=== PATIENT | female | born 1950 | race Caucasian/White ===

== ENCOUNTER 2017-10-04 08:08 | Emergency (ER) | payer OTHER, SELFPAY ==
[2017-10-04 08:19] VITALS: BP 180/91; PULSE 75; RESP 18; TEMP 37.1; O2SAT 97; BMI 31.1
[2017-10-04 08:59] VITALS: BP 179/99; PULSE 74; RESP 21; O2SAT 98
[2017-10-04 08:59] LABS: Add Manual Diff / Slide Review NO; Basophils Percent Auto 0.9 % (0-2); Eosinophils Percent Auto 0.2 % (2-4); Hematocrit 37.9 % (36-46); Hemoglobin 13.5 g/dL (12.0-16.0); Lymphocytes Percent Auto 12.4 % (25-40); Mean Corpuscular HGB Conc 35.5 % (30-36); Mean Corpuscular Volume 98.6 fL (80-100); Monocytes Percent Auto 6.8 % (3-14); Neutrophils Absolute Auto 4200 /uL (3000-5900); Neutrophils Percent Auto 79.7 % (50-75); Platelet Count 182 X10^3/uL (150-400); Red Blood Cell Count 3.85 X10^6/uL (4.0-5.2); Red Cell Distribution Width 13.3 % (11.6-14.8); White Blood Cell Count 5.3 X10^3/uL (4.5-11.0)
[2017-10-04 09:04] LABS: Alanine Aminotransferase 68 IU/L (9-52); Albumin Globulin Ratio 1.3 (1.0-2.8); Alkaline Phosphatase 157 U/L (38-126); Aspartate Aminotransferase 180 IU/L (14-36); Bilirubin Total 2.1 mg/dL (0.2-1.3); Calcium 9.1 mg/dL (8.4-10.2); Estimated Glomerular Filt Rate 55.5 mL/min (>60); Glucose 122 mg/dL (80-110); HEMOLYSIS < 15 (0-50); Lipase 91 U/L (23-300); Sodium 140 mmol/L (137-145)
[2017-10-04] MEDS: HYDROMORPHONE 0.5 MG INJ IV ×2 (09:09→09:28)
[2017-10-04] MEDS: SODIUM CHLORIDE 0.9% 1,000 ML 150 ML IV (09:10)
--- NOTE | 2017-10-04 09:16 | ED.ABDPAIN ---
HPI - Abdominal Pain General Chief Complaint: Abdominal Pain Stated Complaint: states gallbladder attack Time Seen by Provider: 10/04/17 08:09 Source: patient and family Mode of arrival: ambulatory Limitations: no limitations History of Present Illness HPI narrative: 67F hx HTN, breast cancer resolved with surgery and chemo last hear has upper abdominal pain since last night. During the night patient reports getting up and havnig to vomit multiple times, dry heaving, and gastric contents. No blood. No diarrhea. Denies fever, chills. No abdominal surgeries aside from jen lamar PCP Dr. Salcido Related Data Home Medications Medication Instructions Recorded Confirmed cetirizine 10 mg PO PRN PRN #0 tab 02/06/16 triamcinolone acetonide 1 ld TOPICAL PRN #0 02/06/16 ascorbic acid (vitamin C) 500 mg PO QDAY #0 tab 02/28/16 cholecalciferol (vitamin D3) 6,000 PO QDAY #0 03/08/16 [Vitamin D3] vit-iron fum-folic ac 1 cap PO QDAY #0 07/09/17 [Mynatal] Previous Rx's Medication Instructions Recorded [HANDICAPPED PARKING] 1 ea X1 #1 05/30/16 CHLORZOXAZONE (PARAFON FORTE DSC) 500 mg PO TID #60 tab 08/28/16 ondansetron [Zofran ODT] 4 mg SUBLINGUAL Q6HP PRN #60 odt 10/04/16 fluoxetine 40 mg PO QDAY #90 tab 11/07/16 zolpidem 5 mg PO HS PRN #20 tab 11/11/16 lorazepam 0.5 mg PO Q6HP PRN #40 tab 11/27/16 omeprazole 20 mg PO QDAY #30 cap 12/17/16 amitriptyline 50 mg PO HS #30 tab 04/01/17 metoprolol succinate 100 mg PO QDAY #90 ter 04/01/17 tramadol 50 mg PO Q6HP PRN #30 tab 04/01/17 letrozole [Femara] 2.5 mg PO QDAY #30 tab 08/05/17 ondansetron HCl [Zofran] 4 mg PO Q6H PRN #10 tab 10/04/17 oxycodone-acetaminophen [Percocet] 1 tab PO Q4-6H PRN #10 tab 10/04/17 Allergies Allergy/AdvReac Type Severity Reaction Status Date / Time No Known Drug Allergies Allergy Verified 10/04/17 08:19 Review of Systems Review of Systems ROS: Constitutional - No fever, chills Eyes - No visual changes ENT - No hearing loss Cardiovascular - No chest pain, No edema, no palpitations Respiratory - No cough, no shortness of breath GI - has abdominal pain,has nausea,has vomiting - No dysuria, no hematuria MSK- No back pain Skin - No rash Neuro - No weakness, no change in level of consciousness Endocrine - No polyuria Hematologic/lymphatic - No easy bruising, no petechiae PFSH Surgical History History of knee replacement Status post partial mastectomy Family History Father Mental health problem Mother Hypertension High cholesterol Stroke Exam Narrative Exam Narrative: Exam: Constitutional - Well appearing, well nourished, mild distress EYES - PERRL, EOMI ENT - Moist oral mucosa Cardiovasuclar - Normal rate, rhythm, no murmurs, gallops, rubs Respiratory - Lungs CTA bilaterally, no increased respiratory effort, no accessory muscle use GI - Soft, significant RUQ and epigsastric tenderness, non distended, no rebound MSK - No deformity, No CVA tenderness, No peripheral edema Skin - No rash, no petechiae Neuro - A&Ox3, moves all extremities. No focal deficits Initial Vital Signs Initial Vital Signs: Vital Signs Temperature 98.7 F 10/04/17 08:19 Pulse Rate 75 10/04/17 08:19 Respiratory Rate 18 10/04/17 08:19 Blood Pressure 180/91 H 10/04/17 08:19 Pulse Oximetry 97 10/04/17 08:19 Course Orders Ordered: ED Orders 10/04/17 08:15 Urine Microscopic Stat 10/04/17 08:40 Complete Blood Count AUTO DIFF Stat Comprehensive Metabolic Panel Stat Lipase Stat 10/04/17 09:25 US abdomen complete Stat 10/04/17 11:03 MR abdomen wo con Stat Sodium Chloride (Normal Saline 0.9%) 1,000 mls @ 150 mls/hr IV CONT FREDERICK Last Infusion: 10/04/17 10:27 Dose: 0 mls/hr Admin: 10/04/17 09:10 Dose: 150 mls/hr Discontinued Medications Hydromorphone HCl (Dilaudid) 0.5 mg IV NOW ONE Stop: 10/04/17 09:05 Last Admin: 10/04/17 09:09 Dose: 0.5 mg Hydromorphone HCl (Dilaudid) 0.5 mg IV NOW ONE Stop: 10/04/17 09:25 Last Admin: 10/04/17 09:28 Dose: 0.5 mg Metoclopramide HCl (Reglan) 10 mg IV NOW ONE Stop: 10/04/17 09:25 Last Admin: 10/04/17 09:28 Dose: 10 mg Vital Signs - 8 hr 10/04/17 08:19 10/04/17 08:59 10/04/17 11:10 Temperature 98.7 F Pulse Rate 75 74 79 Respiratory Rate 18 21 18 Blood Pressure 180/91 H Blood Pressure [Left Arm] 179/99 H 126/71 H Pulse Oximetry 97 98 97 10/04/17 12:44 10/04/17 13:34 Temperature Pulse Rate 73 70 Respiratory Rate 20 18 Blood Pressure Blood Pressure [Left Arm] 162/82 H 129/75 H Pulse Oximetry 97 95 MDM - Abdominal Pain Lab Data Result diagrams: 10/04/17 08:40 10/04/17 08:40 Lab Results 10/04/17 10/04/17 10/04/17 Range/Units 08:15 08:40 08:40 WBC 5.3 (4.5-11.0) X10^3/uL RBC 3.85 L (4.0-5.2) X10^6/uL Hgb 13.5 (12.0-16.0) g/dL Hct 37.9 (36-46) % MCV 98.6 (80-100) fL MCH 35.0 H (26-34) PG MCHC 35.5 (30-36) % RDW 13.3 (11.6-14.8) % Plt Count 182 (150-400) X10^3/uL Neut % (Auto) 79.7 H (50-75) % Lymph % (Auto) 12.4 L (25-40) % Duchesne % (Auto) 6.8 (3-14) % Eos % (Auto) 0.2 L (2-4) % Baso % (Auto) 0.9 (0-2) % Neut # (Auto) 4200 (5627-7478) /uL Sodium 140 (137-145) mmol/L Potassium 4.0 (3.4-5.1) mmol/L Chloride 101.0 (98-107) mmol/L Carbon Dioxide 25.0 (22-32) mmol/L BUN 17.0 (7-17) mg/dL Creatinine 1.00 (0.52-1.04) mg/dL Estimated GFR 55.5 L (>60) mL/min BUN/Creatinine Ratio 17.0 (6-22) Glucose 122 H (80-110) mg/dL Calcium 9.1 (8.4-10.2) mg/dL Total Bilirubin 2.1 H (0.2-1.3) mg/dL AST 180 H (14-36) IU/L ALT 68 H (9-52) IU/L Alkaline Phosphatase 157 H (38-126) U/L Total Protein 7.0 (6.3-8.2) g/dL Albumin 4.0 (3.5-5.0) g/dL Globulin 3.0 (1.7-4.1) g/dL Albumin/Globulin Ratio 1.3 (1.0-2.8) Lipase 91 (23-300) U/L Urine RBC 0-1/hpf (0-5/HPF) Urine WBC 1-5/hpf (0-5/HPF) Ur Squamous Epith Cells 5-10 /hpf H Urine Bacteria Few (2-10) H (None) Ur Culture Indicated? Cult not indicated Micro UA Comment Few clue cells Imaging Data US - abdomen: Radiologist's impression: Patient: Santa Sears [facility]#: [id number] : [id number]:[id number] Age/Sex: 67 / FDate of Service: 10/04/17 Loc: ED Accession Number: [id number] Procedure: US abdomen complete Ordering Provider: Jones Ledesma M.D. Patient: Santa Sears [facility]#: [id number] : [id number]:[id number] Age/Sex: 67 / FDate of Service: 10/04/17 Loc: ED Accession Number: [id number] Procedure: MR abdomen wo con Ordering Provider: Jones Ledesma M.D. PROCEDURE: MR ABDOMEN WO CON INDICATIONS: Biliary sludge, dilated CBD; US abdomen TECHNIQUE: Coronal HASTE through the abdomen, axial 2-D FLASH in- and [id number], and breath-hold T2 FSE with fat saturation through the biliary system and pancreas. Oblique coronal and axial thin-slice HASTE, radial thick-slab HASTE centered on the extrahepatic bile ducts. COMPARISON: [facility], , US ABDOMEN COMPLETE, 10/04/2017, 10:08. FINDINGS: Image quality: There is motion artifact slightly limiting evaluation. Pancreas and biliary system: The gallbladder distended with mild gallbladder wall thickening. There are small dependent filling defects in the gallbladder neck consistent with small gallstones or biliary sludge. There is mild biliary ductal dilatation, with the common bile duct measuring up to approximately 7-8 mm with tapering distally into the ampulla of Vater. No discrete filling defects within the common duct to suggest choledocholithiasis. The pancreatic duct is normal in caliber. No peripancreatic edema or fluid collections. Other solid organs: Liver is normal in size. Spleen is normal in size. No adrenal nodules. Kidneys demonstrate no hydronephrosis. There is a right renal cortical cyst. Mild nonspecific perinephric fluid stranding is demonstrated bilaterally. Nodes and vessels: No retroperitoneal or mesenteric adenopathy by size criteria. Aorta and inferior vena cava are normal in size. Bowel and peritoneum: Visualized bowel loops are normal in caliber. No free fluid. Lung bases: No basal pleural effusions. Heart size is enlarged. Bones and soft tissues: No ventral hernias. Bone marrow is of normal overall signal. IMPRESSION: 1. Distention of the gallbladder with mild wall thickening and small gallstones or biliary sludge in the gallbladder neck. The findings are suspicious for developing cholecystitis. 2. Mild biliary ductal dilatation without common duct stones identified on the current study. The findings may represent sequelae of a recently passed stone but the differential includes ampullary stenosis or a nonvisualized mass lesion. Dictated by: Patrick Patterson M.D. on 10/04/2017 at 13:08 Approved by: Patrick Patterson M.D. on 10/04/2017 at 13:17 PROCEDURE: US ABDOMEN COMPLETE INDICATIONS: RIGHT UPPER QUADRANT PAIN TECHNIQUE: Real-time scanning was performed of the abdominal and retroperitoneal organs, with image documentation. COMPARISON: None. FINDINGS: Liver: Liver is normal in size and increased in echogenicity. Gallbladder: The gallbladder is distended without gallbladder wall thickening. There are hypo-and isoechoic filling defects in the gallbladder neck without internal vascularity on Doppler interrogation. No posterior acoustic shadowing. No pericholecystic fluid. Patient was tender on examination. Biliary ducts: Intrahepatic bile ducts are non-dilated. Extrahepatic bile duct caliber measures up to 8 mm. Normal is 6-7 mm or less in diameter, or 10 mm or less post-cholecystectomy. Pancreas: Visualized portions of the pancreas are sonographically normal. Spleen: Spleen is normal in size and homogeneous in echotexture. Kidneys: Right kidney measures 9.7 cm long; left kidney measures 10.1 cm long. No hydronephrosis. Aorta: Not well evaluated due to bowel gas. Iliacs: Proximal common iliac arteries are not well seen due to bowel gas. IVC: Intrahepatic inferior vena cava is patent. Miscellaneous: No free abdominal fluid. IMPRESSION: 1. Distention of the gallbladder with filling defects in the gallbladder neck compatible with biliary sludge, or less likely a soft tissue mass. Further evaluation may be obtained with an MRCP with contrast if clinically indicated. 2. Mild biliary ductal dilatation. A distal obstructing stone or other lesion is suspected. Recommend correlation with laboratory values. Further evaluation may also be obtained with MRCP. 3. Increased hepatic echogenicity compatible with steatosis. Dictated by: Patrick Patterson M.D. on 10/04/2017 at 10:30 Approved by: Patrick Patterson M.D. on 10/04/2017 at 10:34 ECG Data Interpretation: Sinus Rhthym; HR [address]/Tw changes Normal LA interval No ectopy MDM Narrative Medical decision making narrative: Patient given 0.5mg dilaudid IV and NS bolus. RUQ US likely for possible CBD obstruction, Radiology recommended MRCP f/u MRCP obtained; suspicious for developing cholecystitis. Consulted with order desk caller surgeon Dr. Latham; No indication for cholecystectomy or admission at this time. Patient no longer in pain. stable for discharge Discharge Plan Departure Patient Disposition: Home, Self-Care Clinical Impression: Biliary colic Instructions: DI for Gallbladder or Biliary Tubes, DI for Biliary Colic Activity Restrictions/Additional Instructions: Non fatty, high fiber diet for the next week. Please follow up with your primary care provider. Prescriptions: New ondansetron HCl [Zofran] 4 mg tablet 4 mg PO Q6H PRN (Reason: nausea) Qty: 10 RF: 0 oxycodone-acetaminophen [Percocet] 5-325 mg tablet 1 tab PO Q4-6H PRN (Reason: pain) Qty: 10 RF: 0 No Action triamcinolone acetonide 0.5 % cream 1 ld Topical PRN Qty: 0 RF: 0 cetirizine 10 MG tablet 10 mg PO PRN PRNQty: 0 RF: 0 ascorbic acid (vitamin C) 500 MG tablet 500 mg PO QDAY Qty: 0 RF: 0 cholecalciferol (vitamin D3) [Vitamin D3] 1,000 UNIT tablet 6,000 PO QDAY Qty: 0 RF: 0 [HANDICAPPED PARKING] 1 ea X1 Qty: 1 RF: 0 CHLORZOXAZONE (PARAFON FORTE DSC) 500 mg PO TID Qty: 60 RF: 2 ondansetron [Zofran ODT] 4 MG tablet,disintegrating 4 mg Sublingual Q6HP PRNQty: 60 RF: 1 fluoxetine 40 MG capsule 40 mg PO QDAY Qty: 90 RF: 3 zolpidem 5 MG tablet 5 mg PO HS PRNQty: 20 RF: 0 lorazepam 0.5 MG tablet 0.5 mg PO Q6HP PRNQty: 40 RF: 1 omeprazole 20 MG capsule,delayed release(DR/EC) 20 mg PO QDAY Qty: 30 RF: 6 tramadol 50 MG tablet 50 mg PO Q6HP PRNQty: 30 RF: 2 metoprolol succinate 100 MG tablet extended release 24 hr 100 mg PO QDAY Qty: 90 RF: 3 amitriptyline 50 MG tablet 50 mg PO HS Qty: 30 RF: 5 vit-iron fum-folic ac [Mynatal] 1 EACH capsule 1 cap PO QDAY Qty: 0 RF: 0 letrozole [Femara] 2.5 MG tablet 2.5 mg PO QDAY Qty: 30 RF: 3 Referrals: Michael Salcido MD [Primary Care Provider] -
--- NOTE | 2017-10-04 09:25 | DI.US.S_ITS ---
PROCEDURE: US ABDOMEN COMPLETE INDICATIONS: RIGHT UPPER QUADRANT PAIN TECHNIQUE: Real-time scanning was performed of the abdominal and retroperitoneal organs, with image documentation. COMPARISON: None. FINDINGS: Liver: Liver is normal in size and increased in echogenicity. Gallbladder: The gallbladder is distended without gallbladder wall thickening. There are hypo-and isoechoic filling defects in the gallbladder neck without internal vascularity on Doppler interrogation. No posterior acoustic shadowing. No pericholecystic fluid. Patient was tender on examination. Biliary ducts: Intrahepatic bile ducts are non-dilated. Extrahepatic bile duct caliber measures up to 8 mm. Normal is 6-7 mm or less in diameter, or 10 mm or less post-cholecystectomy. Pancreas: Visualized portions of the pancreas are sonographically normal. Spleen: Spleen is normal in size and homogeneous in echotexture. Kidneys: Right kidney measures 9.7 cm long; left kidney measures 10.1 cm long. No hydronephrosis. Aorta: Not well evaluated due to bowel gas. Iliacs: Proximal common iliac arteries are not well seen due to bowel gas. IVC: Intrahepatic inferior vena cava is patent. Miscellaneous: No free abdominal fluid. IMPRESSION: 1. Distention of the gallbladder with filling defects in the gallbladder neck compatible with biliary sludge, or less likely a soft tissue mass. Further evaluation may be obtained with an MRCP with contrast if clinically indicated. 2. Mild biliary ductal dilatation. A distal obstructing stone or other lesion is suspected. Recommend correlation with laboratory values. Further evaluation may also be obtained with MRCP. 3. Increased hepatic echogenicity compatible with steatosis. Dictated by: Patrick Patterson M.D. on 10/04/2017 at 10:30 Approved by: Patrick Patterson M.D. on 10/04/2017 at 10:34
[2017-10-04] MEDS: METOCLOPRAMIDE 10 MG/2 ML INJ IV (09:28)
[2017-10-04 09:52] LABS: Bacteria Urine Few (2-10); RBC Urine 0-1/HPF (0-5/HPF); Squamous Epithelial Cell Urine 5-10 /HPF; Urine Comments FEW CLUE CELLS; WBC Urine 1-5/HPF (0-5/HPF)
[2017-10-04 09:53] LABS: Culture Indicated Urine Cult Not Indicated
--- NOTE | 2017-10-04 11:03 | DI.MRI.S_ITS ---
PROCEDURE: MR ABDOMEN WO CON INDICATIONS: Biliary sludge, dilated CBD; US abdomen TECHNIQUE: Coronal HASTE through the abdomen, axial 2-D FLASH in- and [id number], and breath-hold T2 FSE with fat saturation through the biliary system and pancreas. Oblique coronal and axial thin-slice HASTE, radial thick-slab HASTE centered on the extrahepatic bile ducts. COMPARISON: [facility], US, US ABDOMEN COMPLETE, 10/04/2017, 10:08. FINDINGS: Image quality: There is motion artifact slightly limiting evaluation. Pancreas and biliary system: The gallbladder distended with mild gallbladder wall thickening. There are small dependent filling defects in the gallbladder neck consistent with small gallstones or biliary sludge. There is mild biliary ductal dilatation, with the common bile duct measuring up to approximately 7-8 mm with tapering distally into the ampulla of Vater. No discrete filling defects within the common duct to suggest choledocholithiasis. The pancreatic duct is normal in caliber. No peripancreatic edema or fluid collections. Other solid organs: Liver is normal in size. Spleen is normal in size. No adrenal nodules. Kidneys demonstrate no hydronephrosis. There is a right renal cortical cyst. Mild nonspecific perinephric fluid stranding is demonstrated bilaterally. Nodes and vessels: No retroperitoneal or mesenteric adenopathy by size criteria. Aorta and inferior vena cava are normal in size. Bowel and peritoneum: Visualized bowel loops are normal in caliber. No free fluid. Lung bases: No basal pleural effusions. Heart size is enlarged. Bones and soft tissues: No ventral hernias. Bone marrow is of normal overall signal. IMPRESSION: 1. Distention of the gallbladder with mild wall thickening and small gallstones or biliary sludge in the gallbladder neck. The findings are suspicious for developing cholecystitis. 2. Mild biliary ductal dilatation without common duct stones identified on the current study. The findings may represent sequelae of a recently passed stone but the differential includes ampullary stenosis or a nonvisualized mass lesion. Dictated by: Patrick Patterson M.D. on 10/04/2017 at 13:08 Approved by: Patrick Patterson M.D. on 10/04/2017 at 13:17
[2017-10-04 11:10] VITALS: BP 126/71; PULSE 79; RESP 18; O2SAT 97
[2017-10-04 12:44] VITALS: BP 162/82; PULSE 73; RESP 20; O2SAT 97
[2017-10-04 13:34] VITALS: BP 129/75; PULSE 70; RESP 18; O2SAT 95
[2017-10-04 14:09] VITALS: BP 129/75; PULSE 72; RESP 20; O2SAT 96
== END 2017-10-04 14:11 | disposition home or self-care (01) ==
PROVIDERS: Emergency Provider Student in an Organized Health Care Education/Training Program; Family Provider Family Medicine; PCP Family Medicine
DX: K80.50 Calculus of bile duct without cholangitis or cholecystitis without obstruction (principal)
CPT/HCPCS: 74181; 76700; 80053; 81003; 81015; 83690; 85025; 93005; 96361; 96374; 96375; 96376; 99283; 99285; J1170; J2765

== ENCOUNTER → 2017-11-07 16:24 | Outpatient (CLI) | payer OTHER, SELFPAY ==
--- NOTE | 2017-11-07 16:33 | DI.RAD.S_ITS ---
PROCEDURE: XR KNEE LT 3V INDICATIONS: 67 year-old female with left knee joint pain. TECHNIQUE: 4 views of the knee were acquired. COMPARISON: None. FINDINGS: Bones: No fractures or dislocations. There is medial left knee joint degenerative narrowing. No suspicious bony lesions. Soft tissues: No joint effusion. No suspicious soft tissue calcifications. IMPRESSION: Moderate medial left knee joint degeneration. Dictated by: Elliot Brandt M.D. on 11/07/2017 at 17:01 Approved by: Elliot Brandt M.D. on 11/07/2017 at 17:02
--- NOTE | 2017-11-07 16:33 | DI.RAD.S_ITS ---
PROCEDURE: XR WRIST RT MIN 3V INDICATIONS: 67 year-old female with right wrist pain. TECHNIQUE: 4 views of the wrist were acquired. COMPARISON: None. FINDINGS: Bones: No fractures or dislocations. No suspicious bony lesions. Scaphoid view: Scaphoid appears intact. Soft tissues: No suspicious soft tissue calcifications. IMPRESSION: No radiographic explanation for right wrist pain. Dictated by: Elliot Brandt M.D. on 11/07/2017 at 17:02 Approved by: Elliot Brandt M.D. on 11/07/2017 at 17:03
[2017-11-07 16:49] LABS: Add Manual Diff / Slide Review NO; Basophils Percent Auto 1.3 % (0-2); Eosinophils Percent Auto 1.1 % (2-4); Hematocrit 39.6 % (36-46); Hemoglobin 13.9 g/dL (12.0-16.0); Mean Corpuscular HGB Conc 35.2 % (30-36); Mean Corpuscular Hemoglobin 35.8 PG (26-34); Mean Corpuscular Volume 101.7 fL (80-100); Monocytes Percent Auto 7.8 % (3-14); Neutrophils Absolute Auto 5500 /uL (3000-5900); Neutrophils Percent Auto 68.8 % (50-75); Platelet Count 281 X10^3/uL (150-400); Red Blood Cell Count 3.89 X10^6/uL (4.0-5.2); Red Cell Distribution Width 12.5 % (11.6-14.8)
[2017-11-07 17:13] LABS: Erythrocyte Sedimentation Rate 36 MM/HR (0-20)
--- NOTE | 2017-11-18 14:36 | PC.NURSE ---
Addendum entered by Carolyne Frey R.N. 11/19/17 15:21: Reviewed records from cardiology as well as ECHO report. Follow up scheduled for December 02 at 11:[address] Worrell to determine plan going forward. Message left on Jami phone. Original Note: Addendum entered by Carolyne Frey R.N. 11/18/17 16:18: Was able to connect with patient on phone. She did not have a repeat MUGA per Dr Martin's wishes (that was due in September) but she did see test manager Dr Sinclair in September who did an ECHO. Jennifer is working on obtaining those records for provider review. Also, Jennifer is working on getting pt scheduled with a provider to discuss maintenance plan/hormone blockers. Pt reports that she isn't taking Tamoxifen. Pt is wanting to wait until our permanent providers arrive in December so that she can establish care with one of them. Jennifer is working on this. Original Note: Pt called and left message asking about follow up since seeing cardiology recently due to decreased EF r/t Herceptin. She has no follow up with us scheduled. Follow up needed to discuss maintenance plan/hormone blockers. Per patient, cardiology cleared her. Phoned pt back to request name of test manager so that visit records could be obtained. Also,according to Dr Martin's note back in July, pt was supposed to have a follow up MUGA mid September but unable to locate those results. Left pt message regarding above.
== END ==
PROVIDERS: Family Provider Family Medicine; PCP Family Medicine; Visit Provider Nurse Practitioner Family
DX: M25.531 Pain in right wrist (principal); M25.562 Pain in left knee; M25.431 Effusion, right wrist; M17.12 Unilateral primary osteoarthritis, left knee
CPT/HCPCS: 36415; 73110; 73562; 84550; 85025; 85651

== ENCOUNTER → 2017-12-10 10:03 | Outpatient (CLI) | payer OTHER, SELFPAY | PROVIDERS: Family Provider Family Medicine; PCP Family Medicine; Visit Provider Nurse Practitioner Gerontology | DX: C50.912 Malignant neoplasm of unspecified site of left female breast (principal); Z78.0 Asymptomatic menopausal state; Z79.811 Long term (current) use of aromatase inhibitors | CPT/HCPCS: 77080 ==

== ENCOUNTER → 2017-12-10 10:27 | Outpatient (CLI) | payer OTHER, SELFPAY ==
[2017-12-10 12:22] LABS: Uric Acid 7.1 mg/dL (2.5-6.2)
== END ==
PROVIDERS: Family Provider Family Medicine; PCP Family Medicine; Visit Provider Nurse Practitioner Family
DX: M25.531 Pain in right wrist (principal); M25.431 Effusion, right wrist
CPT/HCPCS: 36415; 84550

== ENCOUNTER → 2018-01-07 11:10 | Outpatient (CLI) | payer OTHER, SELFPAY ==
[2018-01-07 12:30] LABS: Uric Acid 4.8 mg/dL (2.5-6.2)
== END ==
PROVIDERS: Family Provider Family Medicine; PCP Family Medicine; Visit Provider Nurse Practitioner Family
DX: M10.9 Gout, unspecified (principal)
CPT/HCPCS: 36415; 84550

== ENCOUNTER → 2018-02-09 13:58 | Outpatient (CLI) | payer OTHER, SELFPAY ==
[2018-02-09 14:19] LABS: Add Manual Diff / Slide Review NO; Basophils Percent Auto 1.2 % (0-2); Eosinophils Percent Auto 0.9 % (2-4); Hematocrit 39.9 % (36-46); Hemoglobin 13.9 g/dL (12.0-16.0); Lymphocytes Percent Auto 13.3 % (25-40); Mean Corpuscular HGB Conc 34.9 % (30-36); Mean Corpuscular Hemoglobin 36.1 PG (26-34); Mean Corpuscular Volume 103.2 fL (80-100); Monocytes Percent Auto 6.2 % (3-14); Neutrophils Absolute Auto 7200 /uL (3000-5900); Neutrophils Percent Auto 78.4 % (50-75); Platelet Count 296 X10^3/uL (150-400); Red Blood Cell Count 3.86 X10^6/uL (4.0-5.2); White Blood Cell Count 9.1 X10^3/uL (4.5-11.0)
[2018-02-09 15:52] LABS: Alanine Aminotransferase 17 IU/L (9-52); Albumin 3.9 g/dL (3.5-5.0); Albumin Globulin Ratio 1.3 (1.0-2.8); Alkaline Phosphatase 120 U/L (38-126); Aspartate Aminotransferase 23 IU/L (14-36); BUN Creatinine Ratio 18.9 (6-22); Blood Urea Nitrogen 17 mg/dL (7-17); Calcium 9.4 mg/dL (8.4-10.2); Carbon Dioxide 29 mmol/L (22-32); Chloride 102 mmol/L (98-107); Estimated Glomerular Filt Rate > 60.0 mL/min (>60); Glucose 154 mg/dL (80-110); HEMOLYSIS < 15 (0-50); Potassium 3.9 mmol/L (3.4-5.1); Sodium 142 mmol/L (137-145); Total Protein 6.9 g/dL (6.3-8.2)
[2018-02-11 16:09] LABS: Cancer Antigen 27.29 61 U/mL (< 38)
== END ==
PROVIDERS: Internal Medicine Hematology & Oncology; Family Provider Family Medicine; PCP Family Medicine; Visit Provider Internal Medicine Hematology & Oncology
DX: C50.912 Malignant neoplasm of unspecified site of left female breast (principal)
CPT/HCPCS: 36415; 80053; 85025; 86300

== ENCOUNTER → 2018-02-20 16:18 | Outpatient (CLI) | payer OTHER, SELFPAY | PROVIDERS: PCP Family Medicine; Visit Provider Internal Medicine Hematology & Oncology | DX: N63.20 Unspecified lump in the left breast, unspecified quadrant (principal); Z53.9 Procedure and treatment not carried out, unspecified reason ==

== ENCOUNTER → 2018-02-23 14:44 | Outpatient (CLI) | payer OTHER, SELFPAY ==
--- NOTE | 2018-02-23 14:45 | DI.US.S_ITS ---
ULTRASOUND OF LEFT BREAST: 02/23/2018 CLINICAL: Lt brst ca/mastectomy with reconstruction. Palpable lump felt by oncologist. Comparison is made to exams dated: 05/30/2016 breast MRI, 03/04/2016 breast MRI, 02/19/2016 mammogram, 02/19/2016 ultrasound biopsy, 02/12/2016 mammogram - [facility], and 03/11/2014 [facility] - [facility]. Color flow ultrasound of the left breast was performed on the areas of interest. Ball scale images of the real-time examination were reviewed. There is an ill-defined mass in the left breast at 9 o'clock posterior depth. This mass is hypoechoic with posterior acoustic shadowing. This correlates as palpated and is adjacent to the surgical TRAM flap scar. IMPRESSION: BENIGN There is no sonographic evidence of malignancy. The mass in the left breast likely represents fat necrosis and is benign. Clinical followup is recommended. The patient is due for her annual screening mammogram on the right side. This exam was interpreted at Station ID: [id number]. Electronically Signed By: Belen Buitrago M.D. lk/:02/26/2018 09:17:25 copy to: Belen Muniz letter sent: Clinical Evaluation Ultrasound BI-RADS: 2 Benign
== END ==
PROVIDERS: PCP Family Medicine; Visit Provider Internal Medicine Hematology & Oncology
DX: R92.8 Other abnormal and inconclusive findings on diagnostic imaging of breast (principal); N64.1 Fat necrosis of breast; C50.412 Malignant neoplasm of upper-outer quadrant of left female breast
CPT/HCPCS: 76642

== ENCOUNTER 2018-03-02 13:00 | Oncology outpatient (ONC) | payer OTHER, SELFPAY ==
[2017-12-02 11:32] VITALS: BP 151/63; PULSE 74; RESP 17; TEMP 36.8; O2SAT 99
--- NOTE | 2017-12-02 11:36 | ONC.PN ---
Assessment and Plan - Time Spent with Patient IMPRESSION: 1. T2 N0, carcinoma of the left breast status post neoadjuvant paclitaxel, trastuzumab, pertuzumab followed by left mastectomy and adjuvant Adriamycin/Cytoxan and subsequent trastuzumab. Missed 2 cycles due to decreased LVEF and started on letrozole. Letrozole was held August 06, 2017. 2. Cardiomyopathy with decreased LVEF on adjuvant therapy. Saw Dr. Leandro Agarwal September 25, 2017 and started on losartan and continued on Toprol XL. Echocardiogram October 09, 2017 reports normal LV size and function with EF 65%, global strain -24.3 and dilated aorta 4.3 cm. 3. Hypertension 4. Postmenopausal I reviewed the findings, lab and imaging results with her today's visit. She appears to be doing well without signs or symptoms of recurrent disease at this time. I reviewed her recent echocardiogram which suggests improvement in cardiac function though difficult to compare directly with previous MUGA imaging. Reviewed potential toxicity of trastuzumab with her. Reduction in myocardial contractility and LVEF is typically reversible in those who are affected. Of course, there is no way to differentiate cardiomyopathy resulting from HER2-directed agents such as trastuzumab or pertuzumab from that caused by anthracyclines such as doxorubicin, which she also received with her adjuvant therapy. The apparent improvement in LVEF would argue for the former rather than the latter. I have asked her to restart her letrozole and to call back if she has any symptomatic concerns such as hot flashes, arthralgias, mood swings or cognitive dysfunction or any new concerns. Most recent bone density was a couple of years ago she says and I would recommend a repeat to serve as a baseline given the risk of osteoporosis with Aromatase Inhibitors. Reviewed surveillance monitoring and follow-up schedule with her. We will plan to see her back in 3 months and if stable consider switching to six-month follow-up at that time. PLAN: 1. Resume letrozole 2.5 mg daily. Plan minimum 5 years of adjuvant endocrine therapy. 2. Calcium, vitamin-D and weight-bearing exercise program. 3. DEXA scan. 4. Follow-up with Dr. Agarwal in Cardiology. 5. Self examination, monitor for new symptoms and call back as needed. 6. Return appointment in 3 months. 7. CBC, CMP, CA 27.29 prior to the visit. 8. Mammogram due in fall 2017. DICTATED BY NARESH GUERRERO MD MEDICAL ONCOLOGY AND HEMATOLOGY PN -Subjective Interval history: HEMATOLOGY/ONCOLOGY PROGRESS NOTE DATE OF SERVICE: DECEMBER 02, 2017 PATIENT NAME: HOWARD RUSSELL : 1950 IDENTIFICATION: This is a 67-year-old postmenopausal woman with history of T2 N0, carcinoma the left breast, ER positive, KS negative, her 2 positive, status post neoadjuvant chemotherapy with paclitaxel, trastuzumab and pertuzumab completing May 29, 2016 followed by left mastectomy June 25, 2016. Adjuvant Adriamycin/Cytoxan x4 cycles followed by completion of treatment with trastuzumab the missed 2 cycles due to transient decrease LVEF by MUGA. Started adjuvant letrozole but this was held in July due to concerns about her decreased ejection fraction. INTERVAL HISTORY: She returns today in follow-up. Feeling generally well without new symptoms or specific concerns. She has a few questions including questions about recent echocardiogram. She continues to hold letrozole. No new findings on self examination. Appetite and energy level are stable. She denies cough, dyspnea, bone pain, headache or new neurologic symptoms. No nausea or abdominal discomfort. She says that she tolerated the aromatase inhibitor without too much difficulty. No significant hot flashes, mood swings or arthralgias. History of present illness Date of Service: 06/11/17 Primary Care Provider Primary Care Provider: Michael Salcido MD Hx of Present illness The patient is a 67 year old Female who is being seen in the clinic 06/11/17 for ER + HER2 + breast cancer. Herceptin was held due to a reduction in ejectoin fraction and recently restarted just before . She has spoken with Allison and Omari at the time of restart, and with myself today. She was counseled regarding the risk of cardiac disease vs the risk of cancer recurrence and understands the balance of risk. Comes today with the expectation of working out the remaining herceptin schedult. Herceptin started back up in December had DALTON flap on left March 12, did reduction on the right , now needs ot do a reduciton on the left side. Did not have left sided nippele reconstruction. TIMELINE ER positive KS negative HER2 positive breast cancer. Originally a grade 2, 3.1 cm mass. She had a complete pathologic response after 12 weeks of concurrent paclitaxel with every 21 days Perjeta and Herceptin, followed by surgery. paclitaxel Perjeta and Herceptin was 03/13/16 - 05/29/16 Left mastectomy and axillary sampling was on June 25. AC therapy followed this on 07/24/16. She received doses then on and 08/28/16 with dose reduction on 08/28 due to significant neutropenic with neutropenic fever despite filgrastim treatment. She has completed 4 cycles of AC treatment, and now on Herceptin ever 21 days, first dose 11/06/2016; she will continue up to Mar.2. ` A drop in ejection fraction has forced a temporary hold on herceptin. Past Medical History The patient's past medical history is significant for: 1. Left mastectomy 06/25/16 for ER+HER2 positive breast cancer 2. Right knee replacement 1 year ago 3. meniscus surgery 4. Hypertension; hospitalized at least twice for this 5. [id number] Past Surgical History The patient's past surgical history includes: 1. Left mastectomy 06/25/16 for ER+HER2 positive breast cancer 2. Right knee replacement 1 year ago 3. meniscus surgery Lab CA 27-29 55 U/mL H 02/27/16 1242 CA 27-29 42 U/mL H 03/13/16 0916 CA 27-29 39 U/mL H 04/03/16 0902 CA 27-29 51 U/mL H 11/06/16 0941 CA 27-29 46 U/mL H 11/27/16 1030 CA 27-29 40 U/mL H 12/18/16 1053 CA 27-29 39 U/mL H 01/08/17 0919 CA 27-29 26 U/mL 03/31/17 1124 CA 27-29 41 U/mL H 04/16/17 1038 CA 27-29 46 U/mL H 05/28/17 0858 CA 27-29 36 U/mL 06/05/17 0959 Vital Signs Date Time Temp Pulse Resp B/P B/P Pulse O2 O2 Flow FiO2 Mean Ox Delivery Rate 06/11 1610 98.4 79 18 136/87 96 Test Result Date Time Chemistry Sodium (137 - 145 mmol/L) 141 05/28 0858 Potassium (3.5 - 5.1 mmol/L) 3.8 05/28 0858 Chloride (98 - 107 mmol/L) 102.0 05/28 0858 Carbon Dioxide (22 - 30 mmol/L) 27.0 05/28 0858 BUN (7 - 17 mg/dL) 16.0 05/28 857 Creatinine (0.52 - 1.04 mg/dL) 1.00 05/28 857 Estimated GFR (MDRD) (>60 mL/min) 59.0 05/28 857 BUN/Creatinine Ratio (5.8 - 27.8) 16.0 05/28 857 Glucose (80 - 115 mg/dL) 124 H 05/28 857 Calcium (8.4 - 10.2 mg/dL) 9.3 05/28 857 Total Bilirubin (0.2 - 1.3 mg/dL) 0.7 05/28 857 AST (14 - 36 IU/L) 32 05/28 857 ALT (9 - 52 IU/L) 29 05/28 857 Alkaline Phosphatase (38 - 126 U/L) 92 05/28 857 Total Protein (6.3 - 8.2 g/dL) 7.1 05/28 857 Albumin (3.5 - 5.0 g/dL) 4.1 05/28 857 Globulin (1.7 - 4.1 g/dL) 3.0 05/28 857 Albumin/Globulin Ratio (1 - 2.8) 1.4 05/28 857 CA 27-29 (< 38 U/mL) 46 H 05/28 857 Hematology WBC (4.5 - 11 X10^3/uL) 3.7 L 05/28 857 RBC (4.0 - 5.2 X10^6/uL) 3.81 L 05/28 857 Hgb (12 - 16 G/DL) 12.8 05/28 857 Hct (36 - 46 %) 36.7 05/28 857 MCV (80 - 100 FL) 96.2 05/28 857 MCH (26 - 34 PG) 33.5 05/28 857 MCHC (31 - 37 %) 34.8 05/28 857 RDW (11.6 - 14.8 %) 15.5 H 05/28 857 Plt Count (150 - 400 X10^3/uL) 205 05/28 857 Neutrophils % (50 - 75 %) 60.6 05/28 857 Lymphocytes % (25 - 40 %) 23.8 L 05/28 857 Monocytes % (3 - 14 %) 10.3 05/28 857 Eosinophils % (2 - 4 %) 5.0 H 05/28 0858 Basophils % (0 - 2 %) 0.3 05/28 0858 Absolute Neutrophils (3000 - 5900 /uL) 2200 L 05/28 0858 Assessment/Plan Assessment This is a 67-year-old woman with HER-2/jose ramon positive breast cancer who was recently restarted Herceptin. W reviewed the calendar and I recommended we make the last dose on 10/01/2017. Her cardiac ejection fraction and returned within a few points of the prior value she understands risks and benefits of Herceptin versus holding Herceptin. I strongly advised her to continue on current schedule, which she will now do. The CA-27-29 has been consistently just over normal with the most recent being normal; there is no trend and will continue to be followed with no further diagnostics at this time. Time spent with Patient A total of 30 minutes were spent on this appointment, greater than 50% of that time [id number] with the patient in counseling and coordination of care. Discussion with patient included lab results, [diagnosis], treatment options, risks and benefits. Plan for treatment next herceptin Jun 20, MUGA scan with provider review 07/07. Herceptin today. Return to clinic in 21 days for CBC, CMP, CA 27.29 also Herceptin infusion with provider visit. Patient reports she has reconstructive surgery scheduled June [address] Richardson. Review of herceptin history would make the last dose 10/01 Copies to Michael Salcido MD; Yasmany Richardson MD at 1402 <Electronically signed by Marques Hester MD> (PLEASE NOTE): This report may have been all or partially generated using a voice recognition software program. While every effort has been made to edit content upon its completion, county manager errors may occur. Please contact the [facility] at if there are any questions, or if further clarification is necessitated. AUGUST 06, 2017 NOTE: Assessment/Plan Assessment Patient's a very pleasant 67-year-old female with clinical stage II breast cancer,obtaining a complete pathological response after 12 weeks of Herceptin based therapy. Patient's primary is HER-2 positive ER positive grade 2. Patient's adjuvant Herceptin is being discontinued at this time. In addition patient was instructed to discontinue her letrozole. Both of which are contributing to her drop in her EF. Patient is being scheduled for consultation with cardiology for appropriate pharmacological management of her drop in EF. She may benefit from Deejay inhibitors she is also on metoprolol. Likely she is without signs of cardiac Decompromise. Patient will return to clinic in approximately 6 weeks' time with a repeat MUGA scan one week prior. At that time she will start tamoxifen in the adjuvant setting. Time spent with Patient A total of 40 minutes were spent on this appointment, greater than 50% of that time [id number] with the patient in counseling and coordination of care. Discussion with patient included lab results, diagnosis, treatment options, risks and benefits. Plan for treatment As above. at 1255 - Additional ROS Additional ROS: Review of systems: General: No fever, night sweats or weight loss. HEENT: No headache, vision change or dysphagia. Respiratory: No cough or dyspnea. Cardiac: No chest pain, PND or orthopnea. GI: Negative. : Stable. Musculoskeletal: Negative. Neurologic: Negative. Results - Imaging Additional studies: Procedures Closure of skin and subcutaneous tissue of other sites (01/11/13) Home Medications and Allergies Home Medications Medication Instructions Recorded Confirmed Type triamcinolone acetonide 1 ld TOPICAL PRN #0 02/06/16 12/02/17 History cholecalciferol (vitamin D3) 6,000 mg PO QDAY #0 03/08/16 12/02/17 History [Vitamin D3] CHLORZOXAZONE (PARAFON FORTE DSC) 500 mg PO TID #60 tab 08/28/16 12/02/17 Rx fluoxetine 40 mg PO QDAY #90 tab 11/07/16 12/02/17 Rx omeprazole 20 mg PO QDAY #30 cap 12/17/16 12/02/17 Rx metoprolol succinate 100 mg PO QDAY #90 ter 04/01/17 12/02/17 Rx ondansetron HCl [Zofran] 4 mg PO Q6H PRN #10 tab 10/04/17 12/02/17 Rx oxycodone-acetaminophen [Percocet] 1 tab PO Q4-6H PRN #10 tab 10/04/17 12/02/17 Rx [HANDICAPPED PARKING] 1 ea MISC X1 #1 11/07/17 12/02/17 Rx diclofenac 1 % topical gel 4 gram TOP QID #100 gram 11/07/17 12/02/17 Rx methylprednisolone 4 mg tablets in See Label Instructions PO PER PKG 11/07/17 12/02/17 Rx a dose pack DIR #21 each ondansetron 4 mg disintegrating 4 mg SUBLINGUAL Q6HP PRN #60 odt 11/07/17 12/02/17 Rx tablet tramadol 50 mg tablet See Label Instructions PO Q8H PRN 11/07/17 12/02/17 Rx #60 tab Allergies Allergy/AdvReac Type Severity Reaction Status Date / Time No Known Drug Allergies Allergy Verified 11/07/17 15:27 Exam Vital signs: Last Vital Signs Temp 98.3 F 12/02/17 11:32 Pulse 74 12/02/17 11:32 Resp 17 12/02/17 11:32 BP 151/63 H 12/02/17 11:32 Pulse Ox 99 12/02/17 11:32 - Constitutional positive no acute distress, positive average body habitus, positive cooperative - Routine HEENT Exam Head: Present: normocephalic, atraumatic. Absent: cushingoid faces, facial swelling Eye: Present: EOMI, PERRL. Absent: conjunctival icterus, scleral injection, periorbital ecchymosis - Routine Neck Exam Present: supple. Absent: JVD, lymphadenopathy - Routine Chest/Breast/Axilla Exam Chest wall exam standard: Absent: tenderness, mass Breast: Present: scars. Absent: tenderness, mass Axillae: Absent: lymphadenopathy - Routine Respiratory Exam Present: Clear to auscultation bilaterally. Absent: accessory muscle use, rales, wheezes - Routine Cardiovascular Exam Present: RRR, S1, S2. Absent: murmur, S3 - Routine Abdominal Exam Present: soft, normoactive bowel sounds. Absent: tenderness, distended, organomegaly Palpation/Percussion: Absent: hepatomegaly - Routine Extremities Exam Absent: cyanosis, clubbing, edema, calf tenderness - Routine Back/Spine Exam Back/Spine: Absent: CVA tenderness, paraspinal tenderness - Routine Skin Exam Present: intact. Absent: cyanosis, erythema, petechiae, jaundice, rash, ecchymosis - Routine Neurological Exam Present: alert, oriented X3, moving all extremities, normal speech. Absent: altered mental status - Routine Psychiatric Exam Present: normal affect, normal thought process, cooperative, good judgment
--- NOTE | 2017-12-02 11:39 | P.PNONC_ITS ---
Assessment and Plan - Time Spent with Patient IMPRESSION: 1. T2 N0, carcinoma of the left breast status post neoadjuvant paclitaxel, trastuzumab, pertuzumab followed by left mastectomy and adjuvant Adriamycin/ Cytoxan and subsequent trastuzumab. Missed 2 cycles due to decreased LVEF and started on letrozole. Letrozole was held August 06, 2017. 2. Cardiomyopathy with decreased LVEF on adjuvant therapy. Saw Dr. Leandro Agarwal September 25, 2017 and started on losartan and continued on Toprol XL. Echocardiogram October 09, 2017 reports normal LV size and function with EF 65%, global strain -24.3 and dilated aorta 4.3 cm. 3. Hypertension 4. Postmenopausal I reviewed the findings, lab and imaging results with her today's visit. She appears to be doing well without signs or symptoms of recurrent disease at this time. I reviewed her recent echocardiogram which suggests improvement in cardiac function though difficult to compare directly with previous MUGA imaging. Reviewed potential toxicity of trastuzumab with her. Reduction in myocardial contractility and LVEF is typically reversible in those who are affected. Of course, there is no way to differentiate cardiomyopathy resulting from HER2-directed agents such as trastuzumab or pertuzumab from that caused by anthracyclines such as doxorubicin, which she also received with her adjuvant therapy. The apparent improvement in LVEF would argue for the former rather than the latter. I have asked her to restart her letrozole and to call back if she has any symptomatic concerns such as hot flashes, arthralgias, mood swings or cognitive dysfunction or any new concerns. Most recent bone density was a couple of years ago she says and I would recommend a repeat to serve as a baseline given the risk of osteoporosis with Aromatase Inhibitors. Reviewed surveillance monitoring and follow-up schedule with her. We will plan to see her back in 3 months and if stable consider switching to six-month follow-up at that time. PLAN: 1. Resume letrozole 2.5 mg daily. Plan minimum 5 years of adjuvant endocrine therapy. 2. Calcium, vitamin-D and weight-bearing exercise program. 3. DEXA scan. 4. Follow-up with Dr. Agarwal in Cardiology. 5. Self examination, monitor for new symptoms and call back as needed. 6. Return appointment in 3 months. 7. CBC, CMP, CA 27.29 prior to the visit. 8. Mammogram due in fall 2017. DICTATED BY NARESH GUERRERO MD MEDICAL ONCOLOGY AND HEMATOLOGY PN -Subjective Interval history: HEMATOLOGY/ONCOLOGY PROGRESS NOTE DATE OF SERVICE: DECEMBER 02, 2017 PATIENT NAME: HOWARD RUSSELL : 1950 IDENTIFICATION: This is a 67-year-old postmenopausal woman with history of T2 N0, carcinoma the left breast, ER positive, RI negative, her 2 positive, status post neoadjuvant chemotherapy with paclitaxel, trastuzumab and pertuzumab completing May 29, 2016 followed by left mastectomy June 25, 2016. Adjuvant Adriamycin/Cytoxan x4 cycles followed by completion of treatment with trastuzumab the missed 2 cycles due to transient decrease LVEF by MUGA. Started adjuvant letrozole but this was held in July due to concerns about her decreased ejection fraction. INTERVAL HISTORY: She returns today in follow-up. Feeling generally well without new symptoms or specific concerns. She has a few questions including questions about recent echocardiogram. She continues to hold letrozole. No new findings on self examination. Appetite and energy level are stable. She denies cough, dyspnea, bone pain, headache or new neurologic symptoms. No nausea or abdominal discomfort. She says that she tolerated the aromatase inhibitor without too much difficulty. No significant hot flashes, mood swings or arthralgias. History of present illness Date of Service: 06/11/17 Primary Care Provider Primary Care Provider: Michael Salcido MD Hx of Present illness The patient is a 67 year old Female who is being seen in the clinic 06/11/17 for ER + HER2 + breast cancer. Herceptin was held due to a reduction in ejectoin fraction and recently restarted just before . She has spoken with [facility] and Omari at the time of restart, and with myself today. She was counseled regarding the risk of cardiac disease vs the risk of cancer recurrence and understands the balance of risk. Comes today with the expectation of working out the remaining herceptin schedult. Herceptin started back up in December had DALTON flap on left March 12, did reduction on the right , now needs ot do a reduciton on the left side. Did not have left sided nippele reconstruction. TIMELINE ER positive RI negative HER2 positive breast cancer. Originally a grade 2, 3.1 cm mass. She had a complete pathologic response after 12 weeks of concurrent paclitaxel with every 21 days Perjeta and Herceptin , followed by surgery. paclitaxel Perjeta and Herceptin was 03/13/16 - 05/29/16 Left mastectomy and axillary sampling was on June 25. AC therapy followed this on 07/24/16. She received doses then on and with dose reduction on 08/28 due to significant neutropenic with neutropenic fever despite filgrastim treatment. She has completed 4 cycles of AC treatment, and now on Herceptin ever 21 days, first dose 11/06/2016; she will continue up to Mar.2. ` A drop in ejection fraction has forced a temporary hold on herceptin. Past Medical History The patient's past medical history is significant for: 1. Left mastectomy 06/25/16 for ER+HER2 positive breast cancer 2. Right knee replacement 1 year ago 3. meniscus surgery 4. Hypertension; hospitalized at least twice for this 5. [id number] Past Surgical History The patient's past surgical history includes: 1. Left mastectomy 06/25/16 for ER+HER2 positive breast cancer 2. Right knee replacement 1 year ago 3. meniscus surgery Lab CA 27-29 55 U/mL H 02/27/16 1242 CA 27-29 42 U/mL H 03/13/16 0916 CA 27-29 39 U/mL H 04/03/16 0902 CA 27-29 51 U/mL H 11/06/16 0941 CA 27-29 46 U/mL H 11/27/16 1030 CA 27-29 40 U/mL H 12/18/16 1053 CA 27-29 39 U/mL H 01/08/17 0919 CA 27-29 26 U/mL 03/31/17 1124 CA 27-29 41 U/mL H 04/16/17 1038 CA 27-29 46 U/mL H 05/28/17 0858 CA 27-29 36 U/mL 06/05/17 0959 Vital Signs Date Time Temp Pulse Resp B/P B/P Pulse O2 O2 Flow FiO2 Mean Ox Delivery Rate 06/11 1610 98.4 79 18 136/87 96 Test Result Date Time Chemistry Sodium (137 - 145 mmol/L) 141 05/28 0858 Potassium (3.5 - 5.1 mmol/L) 3.8 05/28 0858 Chloride (98 - 107 mmol/L) 102.0 05/28 0858 Carbon Dioxide (22 - 30 mmol/L) 27.0 05/28 0858 BUN (7 - 17 mg/dL) 16.0 05/28 857 Creatinine (0.52 - 1.04 mg/dL) 1.00 05/28 857 Estimated GFR (MDRD) (>60 mL/min) 59.0 05/28 857 BUN/Creatinine Ratio (5.8 - 27.8) 16.0 05/28 857 Glucose (80 - 115 mg/dL) 124 H 05/28 857 Calcium (8.4 - 10.2 mg/dL) 9.3 05/28 857 Total Bilirubin (0.2 - 1.3 mg/dL) 0.7 05/28 857 AST (14 - 36 IU/L) 32 05/28 857 ALT (9 - 52 IU/L) 29 05/28 857 Alkaline Phosphatase (38 - 126 U/L) 92 05/28 857 Total Protein (6.3 - 8.2 g/dL) 7.1 05/28 857 Albumin (3.5 - 5.0 g/dL) 4.1 05/28 857 Globulin (1.7 - 4.1 g/dL) 3.0 05/28 857 Albumin/Globulin Ratio (1 - 2.8) 1.4 05/28 857 CA 27-29 (< 38 U/mL) 46 H 05/28 857 Hematology WBC (4.5 - 11 X10^3/uL) 3.7 L 05/28 857 RBC (4.0 - 5.2 X10^6/uL) 3.81 L 05/28 857 Hgb (12 - 16 G/DL) 12.8 05/28 857 Hct (36 - 46 %) 36.7 05/28 857 MCV (80 - 100 FL) 96.2 05/28 857 MCH (26 - 34 PG) 33.5 05/28 857 MCHC (31 - 37 %) 34.8 05/28 857 RDW (11.6 - 14.8 %) 15.5 H 05/28 857 Plt Count (150 - 400 X10^3/uL) 205 05/28 857 Neutrophils % (50 - 75 %) 60.6 05/28 857 Lymphocytes % (25 - 40 %) 23.8 L 05/28 857 Monocytes % (3 - 14 %) 10.3 05/28 857 Eosinophils % (2 - 4 %) 5.0 H 05/28 0858 Basophils % (0 - 2 %) 0.3 05/28 0858 Absolute Neutrophils (3000 - 5900 /uL) 2200 L 05/28 0858 Assessment/Plan Assessment This is a 67-year-old woman with HER-2/jose ramon positive breast cancer who was recently restarted Herceptin. W reviewed the calendar and I recommended we make the last dose on 10/01/2017. Her cardiac ejection fraction and returned within a few points of the prior value she understands risks and benefits of Herceptin versus holding Herceptin. I strongly advised her to continue on current schedule, which she will now do. The CA-27-29 has been consistently just over normal with the most recent being normal; there is no trend and will continue to be followed with no further diagnostics at this time. Time spent with Patient A total of 30 minutes were spent on this appointment, greater than 50% of that time [id number] with the patient in counseling and coordination of care. Discussion with patient included lab results, [diagnosis], treatment options, risks and benefits. Plan for treatment next herceptin Jun 20, MUGA scan with provider review 07/07. Herceptin today. Return to clinic in 21 days for CBC, CMP, CA 27.29 also Herceptin infusion with provider visit. Patient reports she has reconstructive surgery scheduled June [address] Richardson. Review of herceptin history would make the last dose 10/01 Copies to Michael Salcido MD; Yasmany Richardson MD at 1402 <Electronically signed by Marques Hester MD> (PLEASE NOTE): This report may have been all or partially generated using a voice recognition software program. While every effort has been made to edit content upon its completion, rock dust sprayer errors may occur. Please contact the [facility] [employer] [facility] at if there are any questions, or if further clarification is necessitated. AUGUST 06, 2017 NOTE: Assessment/Plan Assessment Patient's a very pleasant 67-year-old female with clinical stage II breast cancer,obtaining a complete pathological response after 12 weeks of Herceptin based therapy. Patient's primary is HER-2 positive ER positive grade 2. Patient's adjuvant Herceptin is being discontinued at this time. In addition patient was instructed to discontinue her letrozole. Both of which are contributing to her drop in her EF. Patient is being scheduled for consultation with cardiology for appropriate pharmacological management of her drop in EF. She may benefit from Deejay inhibitors she is also on metoprolol. Likely she is without signs of cardiac Decompromise. Patient will return to clinic in approximately 6 weeks' time with a repeat MUGA scan one week prior. At that time she will start tamoxifen in the adjuvant setting. Time spent with Patient A total of 40 minutes were spent on this appointment, greater than 50% of that time [id number] with the patient in counseling and coordination of care. Discussion with patient included lab results, diagnosis, treatment options, risks and benefits. Plan for treatment As above. at 1255 - Additional ROS Additional ROS: Review of systems: General: No fever, night sweats or weight loss. HEENT: No headache, vision change or dysphagia. Respiratory: No cough or dyspnea. Cardiac: No chest pain, PND or orthopnea. GI: Negative. : Stable. Musculoskeletal: Negative. Neurologic: Negative. Results - Imaging Additional studies: Procedures Closure of skin and subcutaneous tissue of other sites (01/11/13) Home Medications and Allergies Home Medications Medication Instructions Recorded Confirmed Type triamcinolone acetonide 1 ld TOPICAL PRN #0 02/06/16 12/02/17 History cholecalciferol (vitamin D3) 6,000 mg PO QDAY #0 03/08/16 12/02/17 History [Vitamin D3] CHLORZOXAZONE (PARAFON FORTE DSC) 500 mg PO TID #60 tab 08/28/16 12/02/17 Rx fluoxetine 40 mg PO QDAY #90 tab 11/07/16 12/02/17 Rx omeprazole 20 mg PO QDAY #30 cap 12/17/16 12/02/17 Rx metoprolol succinate 100 mg PO QDAY #90 ter 04/01/17 12/02/17 Rx ondansetron HCl [Zofran] 4 mg PO Q6H PRN #10 tab 10/04/17 12/02/17 Rx oxycodone-acetaminophen [Percocet] 1 tab PO Q4-6H PRN #10 tab 10/04/17 12/02/17 Rx [HANDICAPPED PARKING] 1 ea MISC X1 #1 11/07/17 12/02/17 Rx diclofenac 1 % topical gel 4 gram TOP QID #100 gram 11/07/17 12/02/17 Rx methylprednisolone 4 mg tablets in See Label Instructions PO PER PKG 11/07/17 Rx a dose pack DIR #21 each ondansetron 4 mg disintegrating 4 mg SUBLINGUAL Q6HP PRN #60 odt 11/07/17 Rx tablet tramadol 50 mg tablet See Label Instructions PO Q8H PRN 11/07/17 12/02/17 Rx #60 tab Allergies Allergy/AdvReac Type Severity Reaction Status Date / Time No Known Drug Allergies Allergy Verified 11/07/17 15:27 Exam Vital signs: Last Vital Signs Temp 98.3 F 12/02/17 11:32 Pulse 74 12/02/17 11:32 Resp 17 12/02/17 11:32 BP 151/63 H 12/02/17 11:32 Pulse Ox 99 12/02/17 11:32 - Constitutional positive no acute distress, positive average body habitus, positive cooperative - Routine HEENT Exam Head: Present: normocephalic, atraumatic. Absent: cushingoid faces, facial swelling Eye: Present: EOMI, PERRL. Absent: conjunctival icterus, scleral injection, periorbital ecchymosis - Routine Neck Exam Present: supple. Absent: JVD, lymphadenopathy - Routine Chest/Breast/Axilla Exam Chest wall exam standard: Absent: tenderness, mass Breast: Present: scars. Absent: tenderness, mass Axillae: Absent: lymphadenopathy - Routine Respiratory Exam Present: Clear to auscultation bilaterally. Absent: accessory muscle use, rales , wheezes - Routine Cardiovascular Exam Present: RRR, S1, S2. Absent: murmur, S3 - Routine Abdominal Exam Present: soft, normoactive bowel sounds. Absent: tenderness, distended, organomegaly Palpation/Percussion: Absent: hepatomegaly - Routine Extremities Exam Absent: cyanosis, clubbing, edema, calf tenderness - Routine Back/Spine Exam Back/Spine: Absent: CVA tenderness, paraspinal tenderness - Routine Skin Exam Present: intact. Absent: cyanosis, erythema, petechiae, jaundice, rash, ecchymosis - Routine Neurological Exam Present: alert, oriented X3, moving all extremities, normal speech. Absent: altered mental status - Routine Psychiatric Exam Present: normal affect, normal thought process, cooperative, good judgment
--- NOTE | 2018-02-13 14:04 | ONC.PN ---
PN -Subjective Interval history: Chief Complaint: 68 year old female with left breast cancer here for scheduled follow up. Interim Events: Mrs. Santa Sears is a 68-year-old female with history of T2 N0 left breast cancer, ER positive, IN negative, HER2 positive, status post neoadjuvant chemotherapy with paclitaxel, trastuzumab, and pertuzumab completed May 29, 2016. She then underwent left mastectomy June 25, 2016. Postoperatively, she received adjuvant chemotherapy with Adriamycin/Cytoxan x4 cycles followed by trastuzumab which she received her last dose on October 01, 2017. There has been 2 missing doses due to decreased left ventricular ejection fraction on marked scan. She was also started on letrozole at the same time per patient. Once again it was on and off due to left ventricular ejection fraction according to patient. She is not taking letrozole and tolerates very well. She reports only mild sweating, no hot flashes. Patient is complaining right wrist pain which is mild to moderate and uncomfortable. She is also complaining tingling and numbing of fingers and toes especially the toes. She week up at night because of burning of the toes. Patient said that she has good appetite, no nausea and no vomiting. She denies any diarrhea or constipation. Oncological History ER positive IN negative HER2 positive breast cancer. Originally a grade 2, 3.1 cm mass. She had a complete pathologic response after 12 weeks of concurrent paclitaxel with every 21 days Perjeta and Herceptin, followed by surgery. paclitaxel Perjeta and Herceptin was 03/13/16 - 05/29/16 Left mastectomy and axillary sampling was on June 25. AC therapy followed this on 07/24/16. She received doses then on and 08/28/16 with dose reduction on 08/28 due to significant neutropenic with neutropenic fever despite filgrastim treatment. She has completed 4 cycles of AC treatment, and now on Herceptin ever 21 days, first dose 11/06/2016; she will continue up to Mar.13. ` A drop in ejection fraction has forced a temporary hold on herceptin. Medical comorbidities: hypertension and depression - Patient Self-Reported Symptoms SR Skin issues: Dry skin, Skin rash or itching, Nail changes SR Gastrointestinal issues: Nausea SR Neuro issues: Difficulty balancing - Additional ROS All systems PM: reviewed and no additional remarkable complaints except as stated Home Medications and Allergies Home Medications Medication Instructions Recorded Confirmed Type triamcinolone acetonide 1 ld TOPICAL PRN #0 02/06/16 12/02/17 History cholecalciferol (vitamin D3) 6,000 mg PO QDAY #0 03/08/16 12/02/17 History [Vitamin D3] CHLORZOXAZONE (PARAFON FORTE DSC) 500 mg PO TID #60 tab 08/28/16 12/02/17 Rx fluoxetine 40 mg PO QDAY #90 tab 11/07/16 12/02/17 Rx metoprolol succinate 100 mg PO QDAY #90 ter 04/01/17 12/02/17 Rx ondansetron HCl [Zofran] 4 mg PO Q6H PRN #10 tab 10/04/17 12/02/17 Rx oxycodone-acetaminophen [Percocet] 1 tab PO Q4-6H PRN #10 tab 10/04/17 12/02/17 Rx [HANDICAPPED PARKING] 1 ea MISC X1 #1 11/07/17 12/02/17 Rx diclofenac 1 % topical gel 4 gram TOP QID #100 gram 11/07/17 12/02/17 Rx methylprednisolone 4 mg tablets in See Label Instructions PO PER PKG 11/07/17 12/02/17 Rx a dose pack DIR #21 each ondansetron 4 mg disintegrating 4 mg SUBLINGUAL Q6HP PRN #60 odt 11/07/17 12/02/17 Rx tablet tramadol 50 mg tablet See Label Instructions PO Q8H PRN 11/07/17 12/02/17 Rx #60 tab allopurinol 100 mg tablet See Label Instructions PO DAILY 12/26/17 Rx #63 tab allopurinol 300 mg tablet 300 mg PO DAILY #90 tab 12/26/17 Rx omeprazole 20 mg PO QDAY #30 cap 01/16/18 Rx Allergies Allergy/AdvReac Type Severity Reaction Status Date / Time No Known Drug Allergies Allergy Verified 11/07/17 15:27 Exam Vital signs: Temp 98.3 F 12/02/17 11:32 Pulse 74 12/02/17 11:32 Resp 17 12/02/17 11:32 BP 151/63 H 12/02/17 11:32 Pulse Ox 99 12/02/17 11:32 ECOG 1 Narrative: Constitutional: Well developed, well nourished, not in any acute respiratory distress, average body habitus, well groomed, pleasant and cooperative. HEENT: Normocephalic atraumatic. Extraocular muscle movement intact. Pupils are round, equal and reactive to light and accommodations. Anicteric sclera. No hearing difficulty; Oral mucus membrane moist and without ulcers. Neck: Supple, symmetrical, and tracheal midline; No palpable thyromegaly and no palpable lymph nodes. Respiratory: No use of accessory muscles. Clear to auscultation, and no wheezes or rales or rubs. Cardiovascular: Regular rate and rhythm, S1 and S2 normal, no murmurs gallops or rubs. No JVD. No pitting edema of lower extremities. Abdomen: Soft, nontender, non-distended, bowel sounds normal, no palpable organomegaly, no hernia, no palpable masses. Lower extremities: No palpable pedal edema. Lymphatic: no palpable lymph nodes in the neck, axillae, or groins. Musculoskeletal: normal gait and station, no clubbing, no cyanosis, no pitting edema. Skin: no rashes, no ulcers, no petechiae Neurological: Awake and alert and oriented x3. CN II-XII grossly intact. No focal motor or sensory deficit. Psychiatric: Good judgment, good insight, normal affect, normal thought process, cooperative, no depression, no anxiety. Breast exam is colon right breast: Status post reconstruction surgery. No nipple retraction. No skin changes. No palpable lymph nodes. Left breast: Status post mastectomy with reconstruction. There is a palpable heart 1 cm nodule at the inner end of the surgical wound, at 7 o'clock. Nontender. No palpable lymph nodes in the left axilla. Results - Labs CA 27.29: February 09, 2018 was 61, previously on June 05, 2017 it was 36. - Imaging Additional studies: Procedures Closure of skin and subcutaneous tissue of other sites (01/11/13) Assessment and Plan (1) Breast cancer, left She is currently taking letrozole and has tolerated extremely well. I will have her continue to take letrozole without any changes. Given the slightly elevated serum CA 27-29 level, I will have her come back in about 2-3 weeks and repeat the test. In addition patient will get mammograms as scheduled. I will proof performed a left breast ultrasound to evaluate the nodule in the inner lower quadrant of the left breast. Patient verbalized understanding. (2) Hypertension Status: Acute Stable. (3) Depression On fluoxetine. Stable.
--- NOTE | 2018-02-13 14:10 | P.PNONC_ITS ---
PN -Subjective Interval history: Chief Complaint: 68 year old female with left breast cancer here for scheduled follow up. Interim Events: Mrs. Santa Sears is a 68-year-old female with history of T2 N0 left breast cancer, ER positive, [place] negative, HER2 positive, status post neoadjuvant chemotherapy with paclitaxel, trastuzumab, and pertuzumab completed May 29, 2016. She then underwent left mastectomy June 25, 2016. Postoperatively, she received adjuvant chemotherapy with Adriamycin/Cytoxan x4 cycles followed by trastuzumab which she received her last dose on October 01, 2017. There has been 2 missing doses due to decreased left ventricular ejection fraction on marked scan. She was also started on letrozole at the same time per patient. Once again it was on and off due to left ventricular ejection fraction according to patient. She is not taking letrozole and tolerates very well. She reports only mild sweating, no hot flashes. Patient is complaining right wrist pain which is mild to moderate and uncomfortable. She is also complaining tingling and numbing of fingers and toes especially the toes. She week up at night because of burning of the toes. Patient said that she has good appetite, no nausea and no vomiting. She denies any diarrhea or constipation. Oncological History ER positive [place] negative HER2 positive breast cancer. Originally a grade 2, 3.1 cm mass. She had a complete pathologic response after 12 weeks of concurrent paclitaxel with every 21 days Perjeta and Herceptin , followed by surgery. paclitaxel Perjeta and Herceptin was 03/13/16 - 05/29/16 Left mastectomy and axillary sampling was on June 25. AC therapy followed this on 07/24/16. She received doses then on and with dose reduction on 08/28 due to significant neutropenic with neutropenic fever despite filgrastim treatment. She has completed 4 cycles of AC treatment, and now on Herceptin ever 21 days, first dose 11/06/2016; she will continue up to Mar.13. ` A drop in ejection fraction has forced a temporary hold on herceptin. Medical comorbidities: hypertension and depression - Patient Self-Reported Symptoms SR Skin issues: Dry skin, Skin rash or itching, Nail changes SR Gastrointestinal issues: Nausea SR Neuro issues: Difficulty balancing - Additional ROS All systems PM: reviewed and no additional remarkable complaints except as stated Home Medications and Allergies Home Medications Medication Instructions Recorded Confirmed Type triamcinolone acetonide 1 ld TOPICAL PRN #0 02/06/16 12/02/17 History cholecalciferol (vitamin D3) 6,000 mg PO QDAY #0 03/08/16 12/02/17 History [Vitamin D3] CHLORZOXAZONE (PARAFON FORTE DSC) 500 mg PO TID #60 tab 08/28/16 12/02/17 Rx fluoxetine 40 mg PO QDAY #90 tab 11/07/16 12/02/17 Rx metoprolol succinate 100 mg PO QDAY #90 ter 04/01/17 12/02/17 Rx ondansetron HCl [Zofran] 4 mg PO Q6H PRN #10 tab 10/04/17 12/02/17 Rx oxycodone-acetaminophen [Percocet] 1 tab PO Q4-6H PRN #10 tab 10/04/17 12/02/17 Rx [HANDICAPPED PARKING] 1 ea MISC X1 #1 11/07/17 12/02/17 Rx diclofenac 1 % topical gel 4 gram TOP QID #100 gram 11/07/17 12/02/17 Rx methylprednisolone 4 mg tablets in See Label Instructions PO PER PKG 11/07/17 Rx a dose pack DIR #21 each ondansetron 4 mg disintegrating 4 mg SUBLINGUAL Q6HP PRN #60 odt 11/07/17 Rx tablet tramadol 50 mg tablet See Label Instructions PO Q8H PRN 11/07/17 12/02/17 Rx #60 tab allopurinol 100 mg tablet See Label Instructions PO DAILY 12/26/17 Rx #63 tab allopurinol 300 mg tablet 300 mg PO DAILY #90 tab 12/26/17 Rx omeprazole 20 mg PO QDAY #30 cap 01/16/18 Rx Allergies Allergy/AdvReac Type Severity Reaction Status Date / Time No Known Drug Allergies Allergy Verified 11/07/17 15:27 Exam Vital signs: 3 Temp 98.3 F 12/02/17 11:32 Pulse 74 12/02/17 11:32 Resp 17 12/02/17 11:32 BP 151/63 H 12/02/17 11:32 Pulse Ox 99 12/02/17 11:32 ECOG 1 Narrative: Constitutional: Well developed, well nourished, not in any acute respiratory distress, average body habitus, well groomed, pleasant and cooperative. HEENT: Normocephalic atraumatic. Extraocular muscle movement intact. Pupils are round, equal and reactive to light and accommodations. Anicteric sclera. No hearing difficulty; Oral mucus membrane moist and without ulcers. Neck: Supple, symmetrical, and tracheal midline; No palpable thyromegaly and no palpable lymph nodes. Respiratory: No use of accessory muscles. Clear to auscultation, and no wheezes or rales or rubs. Cardiovascular: Regular rate and rhythm, S1 and S2 normal, no murmurs gallops or rubs. No JVD. No pitting edema of lower extremities. Abdomen: Soft, nontender, non-distended, bowel sounds normal, no palpable organomegaly, no hernia, no palpable masses. Lower extremities: No palpable pedal edema. Lymphatic: no palpable lymph nodes in the neck, axillae, or groins. Musculoskeletal: normal gait and station, no clubbing, no cyanosis, no pitting edema. Skin: no rashes, no ulcers, no petechiae Neurological: Awake and alert and oriented x3. CN II-XII grossly intact. No focal motor or sensory deficit. Psychiatric: Good judgment, good insight, normal affect, normal thought process , cooperative, no depression, no anxiety. Breast exam is colon right breast: Status post reconstruction surgery. No nipple retraction. No skin changes. No palpable lymph nodes. Left breast: Status post mastectomy with reconstruction. There is a palpable heart 1 cm nodule at the inner end of the surgical wound, at 7 o'clock. Nontender. No palpable lymph nodes in the left axilla. Results - Labs CA 27.29: February 09, 2018 was 61, previously on June 05, 2017 it was 36. - Imaging Additional studies: Procedures Closure of skin and subcutaneous tissue of other sites (01/11/13) Assessment and Plan (1) Breast cancer, left She is currently taking letrozole and has tolerated extremely well. I will have her continue to take letrozole without any changes. Given the slightly elevated serum CA 27-29 level, I will have her come back in about 2-3 weeks and repeat the test. In addition patient will get mammograms as scheduled. I will proof performed a left breast ultrasound to evaluate the nodule in the inner lower quadrant of the left breast. Patient verbalized understanding. (2) Hypertension Status: Acute Stable. (3) Depression On fluoxetine. Stable.
[2018-02-13 14:36] VITALS: BP 126/82; PULSE 78; RESP 18; TEMP 36.4; O2SAT 96
[2018-02-26 15:26] LABS: Cancer Antigen 27.29 55 U/mL (< 38)
--- NOTE | 2018-03-02 13:18 | ONC.PN ---
PN -Subjective Interval history: Chief Complaint: 68 year old female with left breast cancer here for scheduled follow up. Interim Events: Patient presents here today accompanied by his for review of the most recent ultrasound study results. It showed no evidence of malignancy. It most likely represents fat necrosis according to the report. Clinically patient reports no new complaints. Patient is scheduled to have a mammogram on March 18, 2018 and we will see her automation clerk Dr. Agarwal on March 11, 2018. Of note, patient is taking letrozole 2.5 mg once a day and has tolerated very well. Oncological History ER positive [place] negative HER2 positive breast cancer, grade 2, 3.1 cm mass. Neoadjuvant paclitaxel/herceptin/pertuzumab x 12 weeks 03/13/16 - 05/29/16 Left mastectomy and axillary sampling was on June 25, path showed complete pathological response.. Adjunvant AC x 4 cycles started 07/24/16. dose reduction on 08/28 due to significant neutropenic with neutropenic fever despite filgrastim treatment. Herceptin every 21 days, first dose 11/06/2016; last dose 10/01/2017. A drop in ejection fraction has forced a temporary hold on herceptin for 2 cycles. Letrazole 11/06/2016 Medical comorbidities: hypertension and depression - Patient Self-Reported Symptoms SR Skin issues: Dry skin, Skin rash or itching, Nail changes SR Gastrointestinal issues: Nausea SR Musculoskeletal issues: Joint pain or swelling SR Neuro issues: Difficulty balancing - Additional ROS All systems PM: reviewed and no additional remarkable complaints except as stated Home Medications and Allergies Home Medications Medication Instructions Recorded Confirmed Type triamcinolone acetonide 1 ld TOPICAL PRN #0 02/06/16 02/27/18 History cholecalciferol (vitamin D3) 6,000 mg PO QDAY #0 03/08/16 02/27/18 History [Vitamin D3] CHLORZOXAZONE (PARAFON FORTE DSC) 500 mg PO TID #60 tab 08/28/16 02/27/18 Rx fluoxetine 40 mg PO QDAY #90 tab 11/07/16 02/27/18 Rx metoprolol succinate 100 mg PO QDAY #90 ter 04/01/17 02/27/18 Rx oxycodone-acetaminophen [Percocet] 1 tab PO Q4-6H PRN #10 tab 10/04/17 02/27/18 Rx [HANDICAPPED PARKING] 1 ea MISC X1 #1 11/07/17 02/27/18 Rx tramadol 50 mg tablet See Label Instructions PO Q8H PRN 11/07/17 02/27/18 Rx #60 tab allopurinol 100 mg tablet See Label Instructions PO DAILY 12/26/17 02/27/18 Rx #63 tab allopurinol 300 mg tablet 300 mg PO DAILY #90 tab 12/26/17 02/27/18 Rx omeprazole 20 mg PO QDAY #30 cap 01/16/18 02/27/18 Rx diclofenac 1 % topical gel 4 gram TOP QID #100 gram 02/20/18 02/27/18 Rx ondansetron 4 mg disintegrating 4 mg SUBLINGUAL Q6HP PRN #60 odt 02/20/18 02/27/18 Rx tablet letrozole 2.5 mg tablet 2.5 mg PO DAILY 02/27/18 02/27/18 History losartan 25 mg tablet 25 mg PO DAILY 02/27/18 02/27/18 History Allergies Allergy/AdvReac Type Severity Reaction Status Date / Time No Known Drug Allergies Allergy Verified 02/27/18 10:27 Exam Vital signs: Temp 97.3 F L 03/02/18 13:24 Pulse 78 03/02/18 13:24 Resp 18 03/02/18 13:24 BP 130/88 03/02/18 13:24 Pulse Ox 97 03/02/18 13:24 ECOG 1 Narrative: Constitutional: Well developed, well nourished, not in any acute respiratory distress, average body habitus, well groomed, pleasant and cooperative. HEENT: Normocephalic atraumatic. Extraocular muscle movement intact. Pupils are round, equal and reactive to light and accommodations. Anicteric sclera. No hearing difficulty; Oral mucus membrane moist and without ulcers. Neck: Supple, symmetrical, and tracheal midline; No palpable thyromegaly and no palpable lymph nodes. Respiratory: No use of accessory muscles. Clear to auscultation, and no wheezes or rales or rubs. Cardiovascular: Regular rate and rhythm, S1 and S2 normal, no murmurs gallops or rubs. No JVD. No pitting edema of lower extremities. Abdomen: Soft, nontender, non-distended, bowel sounds normal, no palpable organomegaly, no hernia, no palpable masses. Lower extremities: No palpable pedal edema. Lymphatic: no palpable lymph nodes in the neck, axillae, or groins. Musculoskeletal: normal gait and station, no clubbing, no cyanosis, no pitting edema. Skin: no rashes, no ulcers, no petechiae Neurological: Awake and alert and oriented x3. CN II-XII grossly intact. No focal motor or sensory deficit. Psychiatric: Good judgment, good insight, normal affect, normal thought process, cooperative, no depression, no anxiety. Breast exam: DEFERRED. Results - Labs CA 27-29 55 U/mL (< 38) H 02/25/18 10:06 - Imaging Additional studies: Procedures Closure of skin and subcutaneous tissue of other sites (01/11/13) Assessment and Plan (1) Breast cancer, left I reviewed the ultrasound study of the left breast with the patient. Per report it is most likely consistent with fat necrosis. Continued follow-up and clinical correlation is recommended. Patient is scheduled for mammogram on March 18, 2018. I talked with the patient that I will continue current treatment without any changes. In summary 1. Contine Letrazole 2.5 mg daily 2. Continue calcium 1 gram / Vitamin D 5000 units 3. Check CA 27-29 every month 4. RTC in 3 months MD visit. (2) Hypertension Status: Acute Stable. (3) Depression On fluoxetine. Stable.
[2018-03-02 13:24] VITALS: BP 130/88; PULSE 78; RESP 18; TEMP 36.3; O2SAT 97
--- NOTE | 2018-03-02 13:25 | P.PNONC_ITS ---
PN -Subjective Interval history: Chief Complaint: 68 year old female with left breast cancer here for scheduled follow up. Interim Events: Patient presents here today accompanied by his for review of the most recent ultrasound study results. It showed no evidence of malignancy. It most likely represents fat necrosis according to the report. Clinically patient reports no new complaints. Patient is scheduled to have a mammogram on March 18, 2018 and we will see her transition program manager Dr. Agarwal on March 11, 2018. Of note, patient is taking letrozole 2.5 mg once a day and has tolerated very well. Oncological History ER positive [place] negative HER2 positive breast cancer, grade 2, 3.1 cm mass. Neoadjuvant paclitaxel/herceptin/pertuzumab x 12 weeks 03/13/16 - 05/29/16 Left mastectomy and axillary sampling was on June 25, path showed complete pathological response.. Adjunvant AC x 4 cycles started 07/24/16. dose reduction on 08/28 due to significant neutropenic with neutropenic fever despite filgrastim treatment. Herceptin every 21 days, first dose 11/06/2016; last dose 10/01/2017. A drop in ejection fraction has forced a temporary hold on herceptin for 2 cycles. Letrazole 11/06/2016 Medical comorbidities: hypertension and depression - Patient Self-Reported Symptoms SR Skin issues: Dry skin, Skin rash or itching, Nail changes SR Gastrointestinal issues: Nausea SR Musculoskeletal issues: Joint pain or swelling SR Neuro issues: Difficulty balancing - Additional ROS All systems PM: reviewed and no additional remarkable complaints except as stated Home Medications and Allergies Home Medications Medication Instructions Recorded Confirmed Type triamcinolone acetonide 1 ld TOPICAL PRN #0 02/06/16 02/27/18 History cholecalciferol (vitamin D3) 6,000 mg PO QDAY #0 03/08/16 02/27/18 History [Vitamin D3] CHLORZOXAZONE (PARAFON FORTE DSC) 500 mg PO TID #60 tab 08/28/16 02/27/18 Rx fluoxetine 40 mg PO QDAY #90 tab 11/07/16 02/27/18 Rx metoprolol succinate 100 mg PO QDAY #90 ter 04/01/17 02/27/18 Rx oxycodone-acetaminophen [Percocet] 1 tab PO Q4-6H PRN #10 tab 10/04/17 02/27/18 Rx [HANDICAPPED PARKING] 1 ea MISC X1 #1 11/07/17 02/27/18 Rx tramadol 50 mg tablet See Label Instructions PO Q8H PRN 11/07/17 02/27/18 Rx #60 tab allopurinol 100 mg tablet See Label Instructions PO DAILY 12/26/17 02/27/18 Rx #63 tab allopurinol 300 mg tablet 300 mg PO DAILY #90 tab 12/26/17 02/27/18 Rx omeprazole 20 mg PO QDAY #30 cap 01/16/18 02/27/18 Rx diclofenac 1 % topical gel 4 gram TOP QID #100 gram 02/20/18 02/27/18 Rx ondansetron 4 mg disintegrating 4 mg SUBLINGUAL Q6HP PRN #60 odt 02/20/18 Rx tablet letrozole 2.5 mg tablet 2.5 mg PO DAILY 02/27/18 02/27/18 History losartan 25 mg tablet 25 mg PO DAILY 02/27/18 02/27/18 History Allergies Allergy/AdvReac Type Severity Reaction Status Date / Time No Known Drug Allergies Allergy Verified 02/27/18 10:27 Exam Vital signs: Temp 97.3 F L 03/02/18 13:24 Pulse 78 03/02/18 13:24 Resp 18 03/02/18 13:24 BP 130/88 03/02/18 13:24 Pulse Ox 97 03/02/18 13:24 ECOG 1 Narrative: Constitutional: Well developed, well nourished, not in any acute respiratory distress, average body habitus, well groomed, pleasant and cooperative. HEENT: Normocephalic atraumatic. Extraocular muscle movement intact. Pupils are round, equal and reactive to light and accommodations. Anicteric sclera. No hearing difficulty; Oral mucus membrane moist and without ulcers. Neck: Supple, symmetrical, and tracheal midline; No palpable thyromegaly and no palpable lymph nodes. Respiratory: No use of accessory muscles. Clear to auscultation, and no wheezes or rales or rubs. Cardiovascular: Regular rate and rhythm, S1 and S2 normal, no murmurs gallops or rubs. No JVD. No pitting edema of lower extremities. Abdomen: Soft, nontender, non-distended, bowel sounds normal, no palpable organomegaly, no hernia, no palpable masses. Lower extremities: No palpable pedal edema. Lymphatic: no palpable lymph nodes in the neck, axillae, or groins. Musculoskeletal: normal gait and station, no clubbing, no cyanosis, no pitting edema. Skin: no rashes, no ulcers, no petechiae Neurological: Awake and alert and oriented x3. CN II-XII grossly intact. No focal motor or sensory deficit. Psychiatric: Good judgment, good insight, normal affect, normal thought process , cooperative, no depression, no anxiety. Breast exam: DEFERRED. Results - Labs CA 27-29 55 U/mL (< 38) H 02/25/18 10:06 - Imaging Additional studies: Procedures Closure of skin and subcutaneous tissue of other sites (01/11/13) Assessment and Plan (1) Breast cancer, left I reviewed the ultrasound study of the left breast with the patient. Per report it is most likely consistent with fat necrosis. Continued follow-up and clinical correlation is recommended. Patient is scheduled for mammogram on March 18, 2018. I talked with the patient that I will continue current treatment without any changes. In summary 1. Contine Letrazole 2.5 mg daily 2. Continue calcium 1 gram / Vitamin D 5000 units 3. Check CA 27-29 every month 4. RTC in 3 months MD visit. (2) Hypertension Status: Acute Stable. (3) Depression On fluoxetine. Stable.
== END 2018-03-03 16:12 | disposition home or self-care (01) ==
PROVIDERS: Internal Medicine Hematology & Oncology; Family Provider Family Medicine; PCP Family Medicine; Visit Provider Internal Medicine Hematology & Oncology
DX: C50.912 Malignant neoplasm of unspecified site of left female breast (principal); I10 Essential (primary) hypertension; F32.9 Major depressive disorder, single episode, unspecified; Z17.0 Estrogen receptor positive status [ER+]; Z79.811 Long term (current) use of aromatase inhibitors
CPT/HCPCS: 36415; 86300; 99214; 99215

== ENCOUNTER → 2018-03-18 11:12 | Outpatient (CLI) | payer OTHER, SELFPAY ==
--- NOTE | 2018-03-18 11:14 | DI.MG.S_ITS ---
UNILATERAL RIGHT DIGITAL SCREENING MAMMOGRAM 3D/2D WITH CAD POST MASTECTOMY: 03/18/2018 CLINICAL: Routine screening. Personal history of left breast cancer. Comparison is made to exams dated: 02/20/2017 mammogram and 02/12/2016 mammogram - [facility]. There are scattered fibroglandular elements in right breast. Current study was also evaluated with a Computer Aided Detection (CAD) system. There are benign post operative findings in the right breast, including interval removal of the superior right chest port catheter. No significant masses, calcifications, or other findings are seen in the breast. IMPRESSION: There is no mammographic evidence of malignancy. A 1 year screening mammogram is recommended. This exam was interpreted at Station ID: [id number]. NOTE: For mammograms, a report in lay terms will be sent to the patient. Approximately 15% of breast malignancies will not be visualized mammographically. In the management of a palpable breast mass, a negative mammogram must not discourage biopsy of a clinically suspicious lesion. Electronically Signed By: Enoc Murguia M.D. ecl/:03/20/2018 05:56:22 copy to: Belen Muniz letter sent: Normal Exam ACR BI-RADS Category 2: Benign Finding(s) 3342F
== END ==
PROVIDERS: PCP Family Medicine; Visit Provider Internal Medicine Hematology & Oncology
DX: Z12.31 Encounter for screening mammogram for malignant neoplasm of breast (principal)
CPT/HCPCS: 77063; 77065

== ENCOUNTER 2018-04-05 02:03 | Observation (INO) | payer OTHER, SELFPAY ==
[2018-04-05] VITALS (22 sets, daily range): BP systolic 91–171; BP diastolic 53–100; PULSE 61–89; RESP 16–21; TEMP 36.4–37.6; O2SAT 87–100; BMI 31.4
--- NOTE | 2018-04-05 | PATH_ITS ---
[facility] Accession Number: [id number] . 01 Material submitted: . GALLBLADDER . 02 Diagnosis: Gallbladder, Cholecystectomy: Chronic cholecystitis with cholelithiasis. No evidence of dysplasia or malignancy. MRV/04/08/2018 . 02 Electronically signed: . Carolyne Gillis MD, Pathologist NPI- [id number] . 01 Gross description: . Received in formalin, labeled gallbladder, is an opened gallbladder (length-4.5 cm, diameter-2.5 cm) with palacio-purple smooth shiny serosa and a patent cystic duct. The lumen contains multiple brown gritty calculi (2.5 x 0.8 x 0.2 cm in aggregate). The mucosa is brown smooth and flat. The wall is up to 0.1 cm thick. No nodules, masses or lesions are identified. No lymph nodes are identified. Section code: (A1) cystic duct resection margin and two serial sections from the body; (A2) two longitudinal sections from the fundus. ([id number]) /MRV . 02 Pathologist provided ICD-10: K80.60 . 02 CPT . 987544 Performed at: 01 [facility] [address], [place], [place] [id number] MD Patrick Regan MD Phone: [phone] Performed at: 02 [facility] [address] [place], [place] [id number] MD Carolyne Gillis MD Phone: [phone]
--- NOTE | 2018-04-05 02:32 | DI.US.S_ITS ---
PROCEDURE: US ABDOMEN COMPLETE INDICATIONS: EPIGASTRIC PAIN TECHNIQUE: Real-time scanning was performed of the abdominal and retroperitoneal organs, with image documentation. COMPARISON: None. FINDINGS: Liver: Liver is normal in size and homogeneous in echotexture. Gallbladder: Gallbladder demonstrates a mobile area of increased echogenicity. Sonographic Vargas's sign is present. There is no wall thickening. Biliary ducts: Intrahepatic bile ducts are non-dilated. Extrahepatic bile duct caliber measures 4.4 mm. Normal is 6-7 mm or less in diameter, or 10 mm or less post-cholecystectomy. Pancreas: Visualized portions of the pancreas are sonographically normal. Spleen: Spleen is normal in size and homogeneous in echotexture. Kidneys: Kidneys are normal in size and echotexture. Right kidney measures 9.5 cm long; left kidney measures 9.3 cm long. No hydronephrosis or nephrolithiasis. No solid masses. Aorta: Visualized aorta is normal in caliber at less than 3 cm. Iliacs: Proximal common iliac arteries are not visualized. IVC: Intrahepatic inferior vena cava is patent. Miscellaneous: No free abdominal fluid. IMPRESSION: 1. Cholelithiasis without imaging evidence of cholecystitis. Dictated by: Chen Pemberton M.D. on 04/05/2018 at 8:27 Approved by: Chen Pemberton M.D. on 04/05/2018 at 8:28
--- NOTE | 2018-04-05 02:33 | DI.RAD.S_ITS ---
PROCEDURE: XR CHEST 1V INDICATIONS: chest pain TECHNIQUE: One view of the chest was acquired. COMPARISON: [facility], , CHEST 2 VIEW, 03/23/2017, 17:06. FINDINGS: Surgical changes and devices: Left axillary clips. Lungs and pleura: Minimal increased pulmonary vascularity. Mediastinum: Mediastinal contours appear normal. Heart size is normal. Bones and chest wall: No suspicious bony lesions. Overlying soft tissues appear unremarkable. IMPRESSION: Minimal increased pulmonary vascularity. Dictated by: Chen Pemberton M.D. on 04/05/2018 at 8:18 Approved by: Chen Pemberton M.D. on 04/05/2018 at 8:19
--- NOTE | 2018-04-05 02:38 | ED.CHESTPAIN ---
HPI - Chest Pain General Chief Complaint: Chest Pain Stated Complaint: thinks she is having gall bladder attack Time Seen by Provider: 04/05/18 02:10 Source: patient and family Mode of arrival: ambulatory Limitations: no limitations History of Present Illness HPI narrative: 68-year-old female, nonsmoker presents with family in the chief complaint of epigastric pain for the past 2 hr. She states it is burning and aching in her epigastrium and has radiated upwards of bit. She did vomit once but denies other cardiac equivalent such as dizziness, weakness or lightheadedness. She denies any shortness of breath. She admits to having heavy, greasy, fatty meal last night and she had 1 beer. This reminds her of prior episodes of gallbladder attacks. MD complaint: chest pain Onset (ago): hour(s) Duration: constant Onset: during rest Pain location: substernal Severity: moderate Quality: aching Pain radiation: abdomen Relieving factors: nothing Exacerbating factors: nothing Associated symptoms: nausea and vomiting Treatments prior to arrival chest pain: none Related Data On Oral Contraceptives: No Home Medications Medication Instructions Recorded Confirmed triamcinolone acetonide 1 ld TOPICAL PRN #0 02/06/16 04/05/18 cholecalciferol (vitamin D3) 6,000 mg PO QDAY #0 03/08/16 04/05/18 [Vitamin D3] letrozole 2.5 mg tablet 2.5 mg PO DAILY 02/27/18 04/05/18 losartan 25 mg tablet 25 mg PO DAILY 02/27/18 04/05/18 amitriptyline 50 mg PO DAILY 04/05/18 04/05/18 ascorbic acid (vitamin C) [Vitamin 500 mg PO DAILY 04/05/18 04/05/18 C] cetirizine [Zyrtec] 10 mg PO DAILY 04/05/18 04/05/18 hydrochlorothiazide 25 mg PO DAILY 04/05/18 04/05/18 lorazepam 1 - 2 tab PO Q6HR 04/05/18 04/05/18 metoprolol succinate 200 mg PO QDAY 04/05/18 04/05/18 Previous Rx's Medication Instructions Recorded CHLORZOXAZONE (PARAFON FORTE DSC) 500 mg PO TID #60 tab 08/28/16 oxycodone-acetaminophen [Percocet] 1 tab PO Q4-6H PRN #10 tab 10/04/17 [HANDICAPPED PARKING] 1 ea MISC X1 #1 11/07/17 tramadol 50 mg tablet See Label Instructions PO Q8H PRN 11/07/17 #60 tab allopurinol 100 mg tablet See Label Instructions PO DAILY 12/26/17 #63 tab allopurinol 300 mg tablet 300 mg PO DAILY #90 tab 12/26/17 omeprazole 20 mg PO QDAY #30 cap 01/16/18 ondansetron 4 mg disintegrating 4 mg SUBLINGUAL Q6HP PRN #60 odt 02/20/18 tablet fluoxetine 40 mg capsule 40 mg PO QDAY #90 tab 03/11/18 Allergies Allergy/AdvReac Type Severity Reaction Status Date / Time No Known Drug Allergies Allergy Verified 02/27/18 10:27 Review of Systems Review of Systems All systems reviewed & are unremarkable except as noted in HPI and below Constitutional Denies chills, Denies fever(s), Denies lethargy and Denies weakness Eyes Denies change in vision, Denies eye discharge, Denies irritation and Denies loss of vision ENT Ears, Nose, Mouth, and Throat: Denies change in voice, Denies neck pain and Denies sore throat Cardiovascular Denies chest pain, Denies irregular heart rhythm, Denies lightheadedness, Denies palpitations, Denies dyspnea, Denies dyspnea on exertion and Denies orthopnea Respiratory Denies cough, Denies dyspnea, Denies dyspnea on exertion and Denies wheezing Gastrointestinal Gastrointestinal: Reports abdominal pain, Denies change in bowel habits, Denies diarrhea, Reports nausea and Reports vomiting Genitourinary Denies hematuria, Denies flank pain, Denies urinary incontinence and Denies urinary urgency Musculoskeletal Denies neck pain Integumentary/Breasts Denies pruritus, Denies erythema, Denies rash and Denies wounds Neurologic Denies confusion, Denies loss of vision and Denies weakness Psychiatric Denies anxiety, Denies confusion, Denies depression, Denies homicidal ideation and Denies suicidal ideation Endocrine Denies palpitations Hematologic/Lymphatic Denies easy bruising Allergic/Immunologic Denies wheezing PFSH Medical History Biliary colic (Acute) 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) Cholelithiasis (Acute) History of antineoplastic chemotherapy (Acute) Neuropathy (Acute) Anemia (Chronic 2016) Chronic back pain (Chronic 1967) Depression (Chronic 1999) Eczema (Chronic 2007) Foot pain (Chronic 2016) Hypertension (Chronic 1989) Lumbar spine pain (Chronic 1967) Shoulder pain (Chronic 2016) Sleep apnea (Chronic 2006) Breast cancer (Resolved 2015) Chicken pox (Resolved 1956) Hemorrhoids (Resolved 1994) Surgical History History of left mastectomy (Acute) Status post left breast reconstruction (Acute) Anesthesia (Resolved) History of knee replacement (Resolved 10/2014) History of lumpectomy (Resolved 2015) Status post partial mastectomy (Resolved 06/2016) Family History: Reviewed 04/05/18 by Hank Kamara MD Social History household members: spouse Smoking Status: Never smoker Exam Narrative Exam Narrative: GENERAL: This is a well-nourished, well-developed patient, in mild distress. HEAD: Atraumatic. Normocephalic. No temporal or scalp tenderness. EYES: Pupils equal round and reactive. Extraocular motions intact. No scleral icterus. No injection or drainage. ENT: Nose without bleeding, purulent drainage or septal hematoma. Throat without erythema, tonsillar hypertrophy or exudate. Uvula midline. Airway patent. NECK: Trachea midline. No JVD or lymphadenopathy. Supple, nontender, no meningeal signs. CARDIOVASCULAR: Regular rate and rhythm without murmurs, gallops, or rubs. RESPIRATORY: Clear to auscultation. Breath sounds equal bilaterally. No wheezes, rales, or rhonchi. GASTROINTESTINAL: Abdomen soft, severely tender in the epigastric, nondistended. No hepato-splenomegaly, or palpable masses. No guarding. EXTREMITIES: No clubbing, cyanosis, or edema. No joint tenderness, effusion, or edema noted. BACK: Nontender without deformity or crepitance. No flank tenderness. NEURO: AOx3. SKIN: No rash or erythema. Initial Vital Signs Initial Vital Signs: Vital Signs Temperature 99.1 F 04/05/18 02:15 Pulse Rate 89 04/05/18 02:15 Respiratory Rate 18 04/05/18 02:15 Blood Pressure 171/94 H 04/05/18 02:15 Pulse Oximetry 96 04/05/18 02:15 Scores HEART Score Heart Score history: Slightly Suspicious Heart Score EKG: Normal Heart Score Age: > or = 65 years old Heart Score risk factors: 1-2 risk factors Heart Score troponin: < or = to normal limit Heart Score Total: 3 Course Orders Ordered: Acetaminophen (Tylenol) 650 mg PO Q6HR PRN PRN Reason: As Needed for Fever/Mild Pain Allopurinol (Zyloprim) 200 mg PO DAILY [facility] Amitriptyline HCl (Elavil) 50 mg PO DAILY [facility] Last Admin: 04/05/18 20:14 Dose: Not Given Ascorbic Acid (Vitamin C) 500 mg PO DAILY [facility] Diphenhydramine HCl (Benadryl) 25 mg IV Q6HR PRN PRN Reason: Itching Last Admin: 04/06/18 02:06 Dose: 25 mg Admin: 04/05/18 20:25 Dose: 25 mg Docusate Sodium (Colace) 100 mg PO BID [facility] Last Admin: 04/05/18 20:11 Dose: 100 mg Admin: 04/05/18 16:41 Dose: Fluoxetine HCl (Prozac) 40 mg PO DAILY [facility] Hydrochlorothiazide (Hydrochlorothiazide) 25 mg PO DAILY [facility] Hydromorphone HCl (Dilaudid) 1 mg IV Q2HR PRN PRN Reason: Pain, Moderate (4-6) Sodium Chloride (Normal Saline 0.9%) 1,000 mls @ 84 mls/hr IV CONT [facility] Last Admin: 04/06/18 01:53 Dose: 84 mls/hr Infusion: 04/06/18 01:53 Dose: 84 mls/hr Admin: 04/05/18 17:26 Dose: 84 mls/hr Letrozole (Femara) 2.5 mg PO DAILY [facility] Last Admin: 04/05/18 20:18 Dose: 2.5 mg Loratadine (Claritin) 10 mg PO DAILY [facility] Lorazepam (Ativan) 0.5 mg PO Q6HR PRN PRN Reason: Anxiety Losartan Potassium (Cozaar) 25 mg PO DAILY [facility] Last Admin: 04/05/18 20:11 Dose: 25 mg Magnesium Hydroxide (Milk Of Magnesia) 30 ml PO BEDTIME PRN PRN Reason: Constipation Metoprolol Succinate (Toprol Xl) 200 mg PO DAILY [facility] Non-Formulary Medication (Chlorzoxazone (Parafon Forte Dsc)) 500 mg PO TID [facility] Last Admin: 04/05/18 20:13 Dose: Not Given Ondansetron HCl (Zofran Odt) 4 mg PO Q6H PRN PRN Reason: nausea and vomiting Ondansetron HCl (Zofran) 4 mg IV Q6HR PRN PRN Reason: Nausea And Vomiting Last Admin: 04/05/18 12:02 Dose: 4 mg Oxycodone HCl (Percolone) 5 mg PO Q3HR PRN PRN Reason: Pain, Mild (1-3) Last Admin: 04/06/18 01:58 Dose: 5 mg Admin: 04/05/18 20:27 Dose: 5 mg Admin: 04/05/18 17:36 Dose: 5 mg Oxycodone HCl (Percolone) 10 mg PO Q3HR PRN PRN Reason: Pain, Moderate (4-6) Pantoprazole Sodium (Protonix) 20 mg PO 0700 [facility] Sennosides (Senna) 8.6 mg PO BEDTIME [facility] Last Admin: 04/05/18 20:09 Dose: 8.6 mg Simethicone (Mylicon) 80 mg PO QID PRN PRN Reason: Flatulence Discontinued Medications Hydrocodone Bitart/Acetaminophen (Vicodin Prepack) 1 bottle MISC SEEINSTR ONE Stop: 04/05/18 05:14 Last Admin: 04/05/18 07:06 Dose: Amitriptyline HCl (Elavil) 50 mg PO DAILY [facility] Last Admin: 04/05/18 16:42 Dose: Bupivacaine HCl (Sensorcaine 0.25%) 50 ml INJ NOW ONE Stop: 04/05/18 11:01 Last Admin: 04/05/18 11:00 Dose: 20 ml Diphenhydramine HCl (Benadryl) 25 mg IV NOW ONE Stop: 04/05/18 05:48 Last Admin: 04/05/18 05:47 Dose: 25 mg Fentanyl (Sublimaze) 50 mcg IV Q5MIN PRN PRN Reason: Pain, Moderate (4-6) Hydromorphone HCl (Dilaudid) 0.5 mg IV NOW ONE Stop: 04/05/18 02:33 Last Admin: 04/05/18 03:06 Dose: 0.5 mg Hydromorphone HCl (Dilaudid) 0.5 mg IV NOW ONE Stop: 04/05/18 03:44 Last Admin: 04/05/18 03:45 Dose: 0.5 mg Hydromorphone HCl (Dilaudid) 0.5 mg IV NOW ONE Stop: 04/05/18 05:40 Last Admin: 04/05/18 05:41 Dose: 0.5 mg Hydromorphone HCl (Dilaudid) 0.5 mg IV Q5MIN PRN PRN Reason: Pain, Moderate (4-6) Hydromorphone HCl (Dilaudid) 0.5 mg IV Q5MIN PRN PRN Reason: Pain, Moderate (4-6) Hydromorphone HCl (Dilaudid) 1 mg IV Q2HR [facility] Last Admin: 04/05/18 16:42 Dose: Admin: 04/05/18 16:41 Dose: Admin: 04/05/18 12:01 Dose: 1 mg Sodium Chloride (Normal Saline 0.9%) 1,000 mls @ 150 mls/hr IV CONT [facility] Last Infusion: 04/05/18 07:05 Dose: 0 mls/hr Admin: 04/05/18 03:05 Dose: 150 mls/hr Cefazolin Sodium/Dextrose (Ancef) 2 gm in 100 mls @ 200 mls/hr IV NOW ONE Stop: 04/05/18 09:06 Last Infusion: 04/05/18 09:15 Dose: 0 mls/hr Admin: 04/05/18 09:08 Dose: 200 mls/hr Sodium Chloride (Normal Saline 0.9%) 1,000 mls @ 150 mls/hr IV CONT [facility] Last Admin: 04/05/18 11:50 Dose: Lactated Ringer's (Lactated Ringers) 1,000 mls @ 42 mls/hr IV CONT [facility] Last Infusion: 04/05/18 11:26 Dose: 0 mls/hr Admin: 04/05/18 10:33 Dose: 42 mls/hr Letrozole (Femara) 2.5 mg PO DAILY [facility] Last Admin: 04/05/18 16:43 Dose: Lidocaine/Epinephrine (Xylocaine 1% W/Epi) 20 ml INJ INTRA-OP ONE Stop: 04/05/18 11:00 Last Admin: 04/05/18 11:01 Dose: 20 ml Lorazepam (Ativan) 0.5 mg PO Q6HR [facility] Last Admin: 04/05/18 16:44 Dose: Losartan Potassium (Cozaar) 25 mg PO DAILY [facility] Last Admin: 04/05/18 16:43 Dose: Meperidine HCl (Demerol) 25 mg IV Q5MIN PRN PRN Reason: Pain or shivering Metoclopramide HCl (Reglan) 10 mg IV NOW PRN PRN Reason: Nausea And Vomiting Non-Formulary Medication (Chlorzoxazone (Parafon Forte Dsc)) 500 mg PO TID [facility] Last Admin: 04/05/18 16:43 Dose: Admin: 04/05/18 16:43 Dose: Ondansetron HCl (Zofran) 4 mg IV NOW ONE Stop: 04/05/18 02:33 Last Admin: 04/05/18 03:06 Dose: 4 mg Triamcinolone Acetonide (Kenalog 0.1% Cream) 1 applic TOP PRN [facility] Reevaluation(s) Reevaluation #1: patient pain free Time: 04:13 Vital Signs - 8 hr 04/06/18 00:40 04/06/18 03:20 Temperature 97.8 F 98.3 F Pulse Rate 78 84 Respiratory Rate 20 20 Blood Pressure 146/81 H 160/79 H Pulse Oximetry 98 96 MDM - Chest Pain Differential Diagnosis Likely pneumothorax, unstable angina pectoris, atypical chest pain, st elevation myocardial infarction, costochondritis, chest pain and biliary colic Medical Records Data Attestation: I reviewed the patient's medical records. Lab Data Attestation: I reviewed the patient's lab results. Result diagrams: 04/05/18 02:21 04/05/18 02:21 Lab Results 04/05/18 04/05/18 04/05/18 Range/Units 02:21 02:21 04:17 WBC 10.4 (4.5-11.0) X10^3/uL RBC 4.01 (4.0-5.2) X10^6/uL Hgb 14.1 (12.0-16.0) g/dL Hct 40.6 (36-46) % MCV 101.2 H (80-100) fL MCH 35.2 H (26-34) PG MCHC 34.7 (30-36) % RDW 13.0 (11.6-14.8) % Plt Count 223 (150-400) X10^3/uL Neut % (Auto) 83.6 H (50-75) % Lymph % (Auto) 10.0 L (25-40) % [place] % (Auto) 5.2 (3-14) % Eos % (Auto) 0.8 L (2-4) % Baso % (Auto) 0.4 (0-2) % Neut # (Auto) 8700 H (5735-7952) /uL Sodium 136 L (137-145) mmol/L Potassium 4.0 (3.4-5.1) mmol/L Chloride 99 (98-107) mmol/L Carbon Dioxide 26 (22-32) mmol/L BUN 16 (7-17) mg/dL Creatinine 0.80 (0.52-1.04) mg/dL Estimated GFR > 60.0 (>60) mL/min BUN/Creatinine Ratio 20.0 (6-22) Glucose 122 H (80-110) mg/dL Calcium 9.4 (8.4-10.2) mg/dL Total Bilirubin 0.8 (0.2-1.3) mg/dL AST 30 (14-36) IU/L ALT 25 (9-52) IU/L Alkaline Phosphatase 117 (38-126) U/L Total Creatine Kinase 31 (30-135) U/L CK-MB (CK-2) TNP CK-MB (CK-2) Rel Index TNP Troponin I < 0.012 < 0.012 (0.01-0.034) ng/mL Total Protein 7.1 (6.3-8.2) g/dL Albumin 4.2 (3.5-5.0) g/dL Globulin 2.9 (1.7-4.1) g/dL Albumin/Globulin Ratio 1.4 (1.0-2.8) Lipase 60 (23-300) U/L Imaging Data US - abdomen: Attestation: I personally reviewed and interpreted this imaging study as follows: Radiologist's impression: gall stones without evidence of choleycystitis ECG Data Attestation: I personally reviewed and interpreted this ECG as follows: Prior ECG tracings: not available for review Interpretation: EKG is normal sinus rhythm rate [74 ] and free of any signs of ischemia or ectopy. No ST segmental elevation or depression. No T wave inversions MDM Narrative Medical decision making narrative: Cardiac etiology considered but thought less likely given lack of ischemic findings on EKG and 2 normal troponins. Furthermore patient's pain is in the epigastrium and reproducible with palpation. Pulmonary embolism considered but thought less likely given lack of tachycardia, shortness of breath Biliary colic thought most likely diagnosis given presence of stones on ultrasound and reproducibility of pain in her epigastrium and right upper quadrant. When pain returned I recommended admission into the hospital with surgical consult and the possibility of cholecystectomy but patient refused stating she has her own surgeon and would prefer to go home and schedule it on her own time. She understands that she can return immediately if she changes her mind and has a firm understanding of return precautions just prior to discharge the patient changed her mind, at which point I contacted surgery whom was happy to evaluate patient for a likely lap choley later in the day. Discharge Plan Departure Patient Disposition: Admitted as Observation Clinical Impression: Gallbladder pain Discharge Date/Time: 04/05/18 08:35 Interventions: ED Discharge Assessment Last Done: 04/05/18 08:37 Admit Date/Time: 04/05/18 07:32 Admit Provider: Hank Kamara
--- NOTE | 2018-04-05 02:44 | ED_ITS ---
HPI - Chest Pain General Chief Complaint: Chest Pain Stated Complaint: thinks she is having gall bladder attack Time Seen by Provider: 04/05/18 02:10 Source: patient and family Mode of arrival: ambulatory Limitations: no limitations History of Present Illness HPI narrative: 68-year-old female, nonsmoker presents with family in the chief complaint of epigastric pain for the past 2 hr. She states it is burning and aching in her epigastrium and has radiated upwards of bit. She did vomit once but denies other cardiac equivalent such as dizziness, weakness or lightheadedness. She denies any shortness of breath. She admits to having heavy , greasy, fatty meal last night and she had 1 beer. This reminds her of prior episodes of gallbladder attacks. MD complaint: chest pain Onset (ago): hour(s) Duration: constant Onset: during rest Pain location: substernal Severity: moderate Quality: aching Pain radiation: abdomen Relieving factors: nothing Exacerbating factors: nothing Associated symptoms: nausea and vomiting Treatments prior to arrival chest pain: none Related Data On Oral Contraceptives: No Home Medications Medication Instructions Recorded Confirmed triamcinolone acetonide 1 ld TOPICAL PRN #0 02/06/16 04/05/18 cholecalciferol (vitamin D3) 6,000 mg PO QDAY #0 03/08/16 04/05/18 [Vitamin D3] letrozole 2.5 mg tablet 2.5 mg PO DAILY 02/27/18 04/05/18 losartan 25 mg tablet 25 mg PO DAILY 02/27/18 04/05/18 amitriptyline 50 mg PO DAILY 04/05/18 04/05/18 ascorbic acid (vitamin C) [Vitamin 500 mg PO DAILY 04/05/18 04/05/18 C] cetirizine [Zyrtec] 10 mg PO DAILY 04/05/18 04/05/18 hydrochlorothiazide 25 mg PO DAILY 04/05/18 04/05/18 lorazepam 1 - 2 tab PO Q6HR 04/05/18 04/05/18 metoprolol succinate 200 mg PO QDAY 04/05/18 04/05/18 Previous Rx's Medication Instructions Recorded CHLORZOXAZONE (PARAFON FORTE DSC) 500 mg PO TID #60 tab 08/28/16 oxycodone-acetaminophen [Percocet] 1 tab PO Q4-6H PRN #10 tab 10/04/17 [HANDICAPPED PARKING] 1 ea MISC X1 #1 11/07/17 tramadol 50 mg tablet See Label Instructions PO Q8H PRN 11/07/17 #60 tab allopurinol 100 mg tablet See Label Instructions PO DAILY 12/26/17 #63 tab allopurinol 300 mg tablet 300 mg PO DAILY #90 tab 12/26/17 omeprazole 20 mg PO QDAY #30 cap 01/16/18 ondansetron 4 mg disintegrating 4 mg SUBLINGUAL Q6HP PRN #60 odt 02/20/18 tablet fluoxetine 40 mg capsule 40 mg PO QDAY #90 tab 03/11/18 Allergies Allergy/AdvReac Type Severity Reaction Status Date / Time No Known Drug Allergies Allergy Verified 02/27/18 10:27 Review of Systems Review of Systems All systems reviewed & are unremarkable except as noted in HPI and below Constitutional Denies chills, Denies fever(s), Denies lethargy and Denies weakness Eyes Denies change in vision, Denies eye discharge, Denies irritation and Denies loss of vision ENT Ears, Nose, Mouth, and Throat: Denies change in voice, Denies neck pain and Denies sore throat Cardiovascular Denies chest pain, Denies irregular heart rhythm, Denies lightheadedness, Denies palpitations, Denies dyspnea, Denies dyspnea on exertion and Denies orthopnea Respiratory Denies cough, Denies dyspnea, Denies dyspnea on exertion and Denies wheezing Gastrointestinal Gastrointestinal: Reports abdominal pain, Denies change in bowel habits, Denies diarrhea, Reports nausea and Reports vomiting Genitourinary Denies hematuria, Denies flank pain, Denies urinary incontinence and Denies urinary urgency Musculoskeletal Denies neck pain Integumentary/Breasts Denies pruritus, Denies erythema, Denies rash and Denies wounds Neurologic Denies confusion, Denies loss of vision and Denies weakness Psychiatric Denies anxiety, Denies confusion, Denies depression, Denies homicidal ideation and Denies suicidal ideation Endocrine Denies palpitations Hematologic/Lymphatic Denies easy bruising Allergic/Immunologic Denies wheezing PFSH Medical History Biliary colic (Acute) 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) Cholelithiasis (Acute) History of antineoplastic chemotherapy (Acute) Neuropathy (Acute) Anemia (Chronic 2016) Chronic back pain (Chronic 1967) Depression (Chronic 1999) Eczema (Chronic 2007) Foot pain (Chronic 2016) Hypertension (Chronic 1989) Lumbar spine pain (Chronic 1967) Shoulder pain (Chronic 2016) Sleep apnea (Chronic 2006) Breast cancer (Resolved 2015) Chicken pox (Resolved 1956) Hemorrhoids (Resolved 1994) Surgical History History of left mastectomy (Acute) Status post left breast reconstruction (Acute) Anesthesia (Resolved) History of knee replacement (Resolved 10/2014) History of lumpectomy (Resolved 2015) Status post partial mastectomy (Resolved 06/2016) Family History: Reviewed 04/05/18 by Hank Kamara MD Social History household members: spouse Smoking Status: Never smoker Exam Narrative Exam Narrative: GENERAL: This is a well-nourished, well-developed patient, in mild distress. HEAD: Atraumatic. Normocephalic. No temporal or scalp tenderness. EYES: Pupils equal round and reactive. Extraocular motions intact. No scleral icterus. No injection or drainage. ENT: Nose without bleeding, purulent drainage or septal hematoma. Throat without erythema, tonsillar hypertrophy or exudate. Uvula midline. Airway patent. NECK: Trachea midline. No JVD or lymphadenopathy. Supple, nontender, no meningeal signs. CARDIOVASCULAR: Regular rate and rhythm without murmurs, gallops, or rubs. RESPIRATORY: Clear to auscultation. Breath sounds equal bilaterally. No wheezes , rales, or rhonchi. GASTROINTESTINAL: Abdomen soft, severely tender in the epigastric, nondistended. No hepato-splenomegaly, or palpable masses. No guarding. EXTREMITIES: No clubbing, cyanosis, or edema. No joint tenderness, effusion, or edema noted. BACK: Nontender without deformity or crepitance. No flank tenderness. NEURO: AOx3. SKIN: No rash or erythema. Initial Vital Signs Initial Vital Signs: Vital Signs Temperature 99.1 F 04/05/18 02:15 Pulse Rate 89 04/05/18 02:15 Respiratory Rate 18 04/05/18 02:15 Blood Pressure 171/94 H 04/05/18 02:15 Pulse Oximetry 96 04/05/18 02:15 Scores HEART Score Heart Score history: Slightly Suspicious Heart Score EKG: Normal Heart Score Age: > or = 65 years old Heart Score risk factors: 1-2 risk factors Heart Score troponin: < or = to normal limit Heart Score Total: 3 Course Orders Ordered: Acetaminophen (Tylenol) 650 mg PO Q6HR PRN PRN Reason: As Needed for Fever/Mild Pain Allopurinol (Zyloprim) 200 mg PO DAILY [facility] Amitriptyline HCl (Elavil) 50 mg PO DAILY [facility] Last Admin: 04/05/18 20:14 Dose: Not Given Ascorbic Acid (Vitamin C) 500 mg PO DAILY [facility] Diphenhydramine HCl (Benadryl) 25 mg IV Q6HR PRN PRN Reason: Itching Last Admin: 04/06/18 02:06 Dose: 25 mg Admin: 04/05/18 20:25 Dose: 25 mg Docusate Sodium (Colace) 100 mg PO BID [facility] Last Admin: 04/05/18 20:11 Dose: 100 mg Admin: 04/05/18 16:41 Dose: Fluoxetine HCl (Prozac) 40 mg PO DAILY [facility] Hydrochlorothiazide (Hydrochlorothiazide) 25 mg PO DAILY [facility] Hydromorphone HCl (Dilaudid) 1 mg IV Q2HR PRN PRN Reason: Pain, Moderate (4-6) Sodium Chloride (Normal Saline 0.9%) 1,000 mls @ 84 mls/hr IV CONT [facility] Last Admin: 04/06/18 01:53 Dose: 84 mls/hr Infusion: 04/06/18 01:53 Dose: 84 mls/hr Admin: 04/05/18 17:26 Dose: 84 mls/hr Letrozole (Femara) 2.5 mg PO DAILY [facility] Last Admin: 04/05/18 20:18 Dose: 2.5 mg Loratadine (Claritin) 10 mg PO DAILY [facility] Lorazepam (Ativan) 0.5 mg PO Q6HR PRN PRN Reason: Anxiety Losartan Potassium (Cozaar) 25 mg PO DAILY [facility] Last Admin: 04/05/18 20:11 Dose: 25 mg Magnesium Hydroxide (Milk Of Magnesia) 30 ml PO BEDTIME PRN PRN Reason: Constipation Metoprolol Succinate (Toprol Xl) 200 mg PO DAILY [facility] Non-Formulary Medication (Chlorzoxazone (Parafon Forte Dsc)) 500 mg PO TID [facility] Last Admin: 04/05/18 20:13 Dose: Not Given Ondansetron HCl (Zofran Odt) 4 mg PO Q6H PRN PRN Reason: nausea and vomiting Ondansetron HCl (Zofran) 4 mg IV Q6HR PRN PRN Reason: Nausea And Vomiting Last Admin: 04/05/18 12:02 Dose: 4 mg Oxycodone HCl (Percolone) 5 mg PO Q3HR PRN PRN Reason: Pain, Mild (1-3) Last Admin: 04/06/18 01:58 Dose: 5 mg Admin: 04/05/18 20:27 Dose: 5 mg Admin: 04/05/18 17:36 Dose: 5 mg Oxycodone HCl (Percolone) 10 mg PO Q3HR PRN PRN Reason: Pain, Moderate (4-6) Pantoprazole Sodium (Protonix) 20 mg PO 0700 [facility] Sennosides (Senna) 8.6 mg PO BEDTIME [facility] Last Admin: 04/05/18 20:09 Dose: 8.6 mg Simethicone (Mylicon) 80 mg PO QID PRN PRN Reason: Flatulence Discontinued Medications Hydrocodone Bitart/Acetaminophen (Vicodin Prepack) 1 bottle MISC SEEINSTR ONE Stop: 04/05/18 05:14 Last Admin: 04/05/18 07:06 Dose: Amitriptyline HCl (Elavil) 50 mg PO DAILY [facility] Last Admin: 04/05/18 16:42 Dose: Bupivacaine HCl (Sensorcaine 0.25%) 50 ml INJ NOW ONE Stop: 04/05/18 11:01 Last Admin: 04/05/18 11:00 Dose: 20 ml Diphenhydramine HCl (Benadryl) 25 mg IV NOW ONE Stop: 04/05/18 05:48 Last Admin: 04/05/18 05:47 Dose: 25 mg Fentanyl (Sublimaze) 50 mcg IV Q5MIN PRN PRN Reason: Pain, Moderate (4-6) Hydromorphone HCl (Dilaudid) 0.5 mg IV NOW ONE Stop: 04/05/18 02:33 Last Admin: 04/05/18 03:06 Dose: 0.5 mg Hydromorphone HCl (Dilaudid) 0.5 mg IV NOW ONE Stop: 04/05/18 03:44 Last Admin: 04/05/18 03:45 Dose: 0.5 mg Hydromorphone HCl (Dilaudid) 0.5 mg IV NOW ONE Stop: 04/05/18 05:40 Last Admin: 04/05/18 05:41 Dose: 0.5 mg Hydromorphone HCl (Dilaudid) 0.5 mg IV Q5MIN PRN PRN Reason: Pain, Moderate (4-6) Hydromorphone HCl (Dilaudid) 0.5 mg IV Q5MIN PRN PRN Reason: Pain, Moderate (4-6) Hydromorphone HCl (Dilaudid) 1 mg IV Q2HR [facility] Last Admin: 04/05/18 16:42 Dose: Admin: 04/05/18 16:41 Dose: Admin: 04/05/18 12:01 Dose: 1 mg Sodium Chloride (Normal Saline 0.9%) 1,000 mls @ 150 mls/hr IV CONT [place] Last Infusion: 04/05/18 07:05 Dose: 0 mls/hr Admin: 04/05/18 03:05 Dose: 150 mls/hr Cefazolin Sodium/Dextrose (Ancef) 2 gm in 100 mls @ 200 mls/hr IV NOW ONE Stop: 04/05/18 09:06 Last Infusion: 04/05/18 09:15 Dose: 0 mls/hr Admin: 04/05/18 09:08 Dose: 200 mls/hr Sodium Chloride (Normal Saline 0.9%) 1,000 mls @ 150 mls/hr IV CONT [facility] Last Admin: 04/05/18 11:50 Dose: Lactated Ringer's (Lactated Ringers) 1,000 mls @ 42 mls/hr IV CONT [facility] Last Infusion: 04/05/18 11:26 Dose: 0 mls/hr Admin: 04/05/18 10:33 Dose: 42 mls/hr Letrozole (Femara) 2.5 mg PO DAILY [facility] Last Admin: 04/05/18 16:43 Dose: Lidocaine/Epinephrine (Xylocaine 1% W/Epi) 20 ml INJ INTRA-OP ONE Stop: 04/05/18 11:00 Last Admin: 04/05/18 11:01 Dose: 20 ml Lorazepam (Ativan) 0.5 mg PO Q6HR [facility] Last Admin: 04/05/18 16:44 Dose: Losartan Potassium (Cozaar) 25 mg PO DAILY [facility] Last Admin: 04/05/18 16:43 Dose: Meperidine HCl (Demerol) 25 mg IV Q5MIN PRN PRN Reason: Pain or shivering Metoclopramide HCl (Reglan) 10 mg IV NOW PRN PRN Reason: Nausea And Vomiting Non-Formulary Medication (Chlorzoxazone (Parafon Forte Dsc)) 500 mg PO TID [facility] Last Admin: 04/05/18 16:43 Dose: Admin: 04/05/18 16:43 Dose: Ondansetron HCl (Zofran) 4 mg IV NOW ONE Stop: 04/05/18 02:33 Last Admin: 04/05/18 03:06 Dose: 4 mg Triamcinolone Acetonide (Kenalog 0.1% Cream) 1 applic TOP PRN [facility] Reevaluation(s) Reevaluation #1: patient pain free Time: 04:13 Vital Signs - 8 hr 04/06/18 00:40 04/06/18 03:20 Temperature 97.8 F 98.3 F Pulse Rate 78 84 Respiratory Rate 20 20 Blood Pressure 146/81 H 160/79 H Pulse Oximetry 98 96 MDM - Chest Pain Differential Diagnosis Likely pneumothorax, unstable angina pectoris, atypical chest pain, st elevation myocardial infarction, costochondritis, chest pain and biliary colic Medical Records Data Attestation: I reviewed the patient's medical records. Lab Data Attestation: I reviewed the patient's lab results. Result diagrams: 04/05/18 02:21 04/05/18 02:21 Lab Results 04/05/18 04/05/18 04/05/18 Range/Units 02:21 02:21 04:17 WBC 10.4 (4.5-11.0) X10^3/uL RBC 4.01 (4.0-5.2) X10^6/uL Hgb 14.1 (12.0-16.0) g/dL Hct 40.6 (36-46) % MCV 101.2 H (80-100) fL MCH 35.2 H (26-34) PG MCHC 34.7 (30-36) % RDW 13.0 (11.6-14.8) % Plt Count 223 (150-400) X10^3/uL Neut % (Auto) 83.6 H (50-75) % Lymph % (Auto) 10.0 L (25-40) % [place] % (Auto) 5.2 (3-14) % Eos % (Auto) 0.8 L (2-4) % Baso % (Auto) 0.4 (0-2) % Neut # (Auto) 8700 H (5749-3583) /uL Sodium 136 L (137-145) mmol/L Potassium 4.0 (3.4-5.1) mmol/L Chloride 99 (98-107) mmol/L Carbon Dioxide 26 (22-32) mmol/L BUN 16 (7-17) mg/dL Creatinine 0.80 (0.52-1.04) mg/dL Estimated GFR > 60.0 (>60) mL/min BUN/Creatinine Ratio 20.0 (6-22) Glucose 122 H (80-110) mg/dL Calcium 9.4 (8.4-10.2) mg/dL Total Bilirubin 0.8 (0.2-1.3) mg/dL AST 30 (14-36) IU/L ALT 25 (9-52) IU/L Alkaline Phosphatase 117 (38-126) U/L Total Creatine Kinase 31 (30-135) U/L CK-MB (CK-2) TNP CK-MB (CK-2) Rel Index TNP Troponin I < 0.012 < 0.012 (0.01-0.034) ng/mL Total Protein 7.1 (6.3-8.2) g/dL Albumin 4.2 (3.5-5.0) g/dL Globulin 2.9 (1.7-4.1) g/dL Albumin/Globulin Ratio 1.4 (1.0-2.8) Lipase 60 (23-300) U/L Imaging Data US - abdomen: Attestation: I personally reviewed and interpreted this imaging study as follows: Radiologist's impression: gall stones without evidence of choleycystitis ECG Data Attestation: I personally reviewed and interpreted this ECG as follows: Prior ECG tracings: not available for review Interpretation: EKG is normal sinus rhythm rate [74 ] and free of any signs of ischemia or ectopy. No ST segmental elevation or depression. No T wave inversions MDM Narrative Medical decision making narrative: Cardiac etiology considered but thought less likely given lack of ischemic findings on EKG and 2 normal troponins. Furthermore patient's pain is in the epigastrium and reproducible with palpation. Pulmonary embolism considered but thought less likely given lack of tachycardia , shortness of breath Biliary colic thought most likely diagnosis given presence of stones on ultrasound and reproducibility of pain in her epigastrium and right upper quadrant. When pain returned I recommended admission into the hospital with surgical consult and the possibility of cholecystectomy but patient refused stating she has her own surgeon and would prefer to go home and schedule it on her own time. She understands that she can return immediately if she changes her mind and has a firm understanding of return precautions just prior to discharge the patient changed her mind, at which point I contacted surgery whom was happy to evaluate patient for a likely lap choley later in the day. Discharge Plan Departure Patient Disposition: Admitted as Observation Clinical Impression: Gallbladder pain Discharge Date/Time: 04/05/18 08:35 Interventions: ED Discharge Assessment Last Done: 04/05/18 08:37 Admit Date/Time: 04/05/18 07:32 Admit Provider: Hank Kamara
[2018-04-05 02:47] LABS: Add Manual Diff / Slide Review NO; Basophils Percent Auto 0.4 % (0-2); Eosinophils Percent Auto 0.8 % (2-4); Hematocrit 40.6 % (36-46); Hemoglobin 14.1 g/dL (12.0-16.0); Mean Corpuscular HGB Conc 34.7 % (30-36); Mean Corpuscular Hemoglobin 35.2 PG (26-34); Mean Corpuscular Volume 101.2 fL (80-100); Monocytes Percent Auto 5.2 % (3-14); Neutrophils Absolute Auto 8700 /uL (3000-5900); Neutrophils Percent Auto 83.6 % (50-75); Platelet Count 223 X10^3/uL (150-400); Red Blood Cell Count 4.01 X10^6/uL (4.0-5.2); White Blood Cell Count 10.4 X10^3/uL (4.5-11.0)
[2018-04-05 02:49] LABS: Alanine Aminotransferase 25 IU/L (9-52); Albumin 4.2 g/dL (3.5-5.0); Albumin Globulin Ratio 1.4 (1.0-2.8); Alkaline Phosphatase 117 U/L (38-126); Aspartate Aminotransferase 30 IU/L (14-36); Bilirubin Total 0.8 mg/dL (0.2-1.3); Blood Urea Nitrogen 16 mg/dL (7-17); Calcium 9.4 mg/dL (8.4-10.2); Carbon Dioxide 26 mmol/L (22-32); Chloride 99 mmol/L (98-107); Creatine Kinase 31 U/L (30-135); Estimated Glomerular Filt Rate > 60.0 mL/min (>60); Globulin 2.9 g/dL (1.7-4.1); Glucose 122 mg/dL (80-110); HEMOLYSIS < 15 (0-50); Lipase 60 U/L (23-300); Sodium 136 mmol/L (137-145); Total Protein 7.1 g/dL (6.3-8.2)
[2018-04-05 03:01] LABS: Troponin I < 0.012 ng/mL (0.01-0.034)
[2018-04-05] MEDS: SODIUM CHLORIDE 0.9% 1,000 ML 150 ML IV (03:05)
[2018-04-05] MEDS: ONDANSETRON 4 MG/2 ML INJ IV ×2 (03:06→12:02)
[2018-04-05] MEDS: HYDROMORPHONE 1 MG INJ 0.5 MG IV ×3 (03:06→05:41)
--- NOTE | 2018-04-05 03:49 | PC.NURSE ---
Pt rates pain 3-4/10, still appears very uncomfortable. Dr Tompkins notified, additional 0.5mg dilaudid given IV per verbal order.
[2018-04-05 04:52] LABS: Troponin I < 0.012 ng/mL (0.01-0.034)
[2018-04-05] MEDS: diphenhydrAMINE 50 MG/ML VIAL 25 MG IV ×2 (05:47→20:25)
--- NOTE | 2018-04-05 08:14 | P.HP_ITS ---
History of Present Illness Date Patient Seen: 04/05/18 Time Patient Seen: 08:03 Chief complaint: thinks she is having gall bladder attack Narrative: 68-year-old female with known history of cholelithiasis initially diagnosed at least September 2017 when she presented to the emergency department with right upper quadrant abdominal pain, nausea, and vomiting. She presented late last evening to the emergency department here at [facility] once again with similar symptoms but no vomiting. She last ate a regular meal approximately 7:00 p.m. yesterday. Several hours later she began to experience significant epigastric and right upper quadrant abdominal pain described as sharp and unrelenting. She was having some mild shortness of breath due to the pain since she was unable to take of deep breath without exacerbation of her symptoms. Pain did not radiate to the back of the shoulder. She has received at least 3 doses of intravenous Dilaudid prior to my arrival in the emergency department this morning, and the patient denies significant pain at the moment. She is not nauseated. However, she is not particularly hungry either. She reports normal bowel and bladder function recently. Last bowel movement was within the last 1-2 days. She denies any recent jaundice, dark brown urine, or acholic stools. No subjective fevers or chills. Again, she is feeling better at the moment following the above medications. 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) Cholelithiasis (Acute) History of antineoplastic chemotherapy (Acute) Neuropathy (Acute) Anemia (Chronic 2016) Chronic back pain (Chronic 1967) Depression (Chronic 1999) Eczema (Chronic 2007) Foot pain (Chronic 2016) Hypertension (Chronic 1989) Lumbar spine pain (Chronic 1967) Shoulder pain (Chronic 2016) Sleep apnea (Chronic 2006) Breast cancer (Resolved 2015) Chicken pox (Resolved 1956) Hemorrhoids (Resolved 1994) Surgical History History of left mastectomy (Acute) Status post left breast reconstruction (Acute) Anesthesia (Resolved) History of knee replacement (Resolved 10/2014) History of lumpectomy (Resolved 2015) Status post partial mastectomy (Resolved 06/2016) Family & Social History Family History: Reviewed 04/05/18 by Hank Kamara MD Tobacco & Substance use: Smoking Status Never smoker alcohol intake frequency 0-2 drinks per day Substance Use Type does not use Meds Home Medications Medication Instructions Recorded Confirmed Type triamcinolone acetonide 1 ld TOPICAL PRN #0 02/06/16 04/05/18 History cholecalciferol (vitamin D3) 6,000 mg PO QDAY #0 03/08/16 04/05/18 History [Vitamin D3] CHLORZOXAZONE (PARAFON FORTE DSC) 500 mg PO TID #60 tab 08/28/16 04/05/18 Rx oxycodone-acetaminophen [Percocet] 1 tab PO Q4-6H PRN #10 tab 10/04/17 02/27/18 Rx [HANDICAPPED PARKING] 1 ea MISC X1 #1 11/07/17 02/27/18 Rx tramadol 50 mg tablet See Label Instructions PO Q8H PRN 11/07/17 04/05/18 Rx #60 tab allopurinol 100 mg tablet See Label Instructions PO DAILY 12/26/17 04/05/18 Rx #63 tab allopurinol 300 mg tablet 300 mg PO DAILY #90 tab 12/26/17 04/05/18 Rx omeprazole 20 mg PO QDAY #30 cap 01/16/18 04/05/18 Rx ondansetron 4 mg disintegrating 4 mg SUBLINGUAL Q6HP PRN #60 odt 02/20/18 Rx tablet letrozole 2.5 mg tablet 2.5 mg PO DAILY 02/27/18 04/05/18 History losartan 25 mg tablet 25 mg PO DAILY 02/27/18 04/05/18 History fluoxetine 40 mg capsule 40 mg PO QDAY #90 tab 03/11/18 04/05/18 Rx amitriptyline 50 mg PO DAILY 04/05/18 04/05/18 History ascorbic acid (vitamin C) [Vitamin 500 mg PO DAILY 04/05/18 04/05/18 History C] cetirizine [Zyrtec] 10 mg PO DAILY 04/05/18 04/05/18 History hydrochlorothiazide 25 mg PO DAILY 04/05/18 04/05/18 History lorazepam 1 - 2 tab PO Q6HR 04/05/18 04/05/18 History metoprolol succinate 200 mg PO QDAY 04/05/18 04/05/18 History Allergies Allergy/AdvReac Type Severity Reaction Status Date / Time No Known Drug Allergies Allergy Verified 02/27/18 10:27 Review of Systems Review of Systems Recent follow-up with Dr. Sinclair in cardiology revealed no significant underlying disease requiring further intervention. She remained stable on her beta-mirella. I do not have these records for review, but the patient informs me of these findings today. Recent follow-up with Dr. Muniz and the Oncology service show no evidence of residual breast cancer disease at this time. All systems reviewed & are unremarkable except as noted in HPI and below Exam Vital Signs (past 8 hours): - 04/05/18 02:15 04/05/18 03:48 04/05/18 05:07 Temperature 99.1 F Pulse Rate 89 83 86 Respiratory Rate 18 19 20 Blood Pressure 171/94 H Blood Pressure [Right Arm] 167/93 H 152/80 H Pulse Oximetry 96 94 94 04/05/18 05:53 04/05/18 06:41 04/05/18 07:00 Temperature Pulse Rate 88 85 80 Respiratory Rate 17 21 20 Blood Pressure Blood Pressure [Right Arm] 146/85 H 132/79 131/72 Pulse Oximetry 93 95 93 04/05/18 07:30 Temperature Pulse Rate 88 Respiratory Rate 16 Blood Pressure Blood Pressure [Right Arm] 135/79 Pulse Oximetry 97 Oxygen Delivery Method Room Air Narrative Exam Narrative: Well-nourished well-developed mildly obese female in no acute distress lying on the gurney in the emergency department. Alert oriented x3. Sclera nonicteric Neck is supple Regular rate and rhythm. No wheezes Abdomen is protuberant but soft. Nondistended. She is not tympanitic. She has well-healed scars from T flap reconstruction for her left breast. No obvious hernias. She is mildly tender in the epigastric region with no positive Vargas sign, guarding, or rebound. I appreciate no masses. No hepatomegaly. No obvious ascites. Extremities show no clubbing, cyanosis, or edema Objective Labs Result Diagrams: 04/05/18 02:21 04/05/18 02:21 Labs: Laboratory Results - last 24 hr 04/05/18 04/05/18 04/05/18 02:21 02:21 04:17 WBC 10.4 RBC 4.01 Hgb 14.1 Hct 40.6 MCV 101.2 H MCH 35.2 H MCHC 34.7 RDW 13.0 Plt Count 223 Neut % (Auto) 83.6 H Lymph % (Auto) 10.0 L [place] % (Auto) 5.2 Eos % (Auto) 0.8 L Baso % (Auto) 0.4 Neut # (Auto) 8700 H Sodium 136 L Potassium 4.0 Chloride 99 Carbon Dioxide 26 BUN 16 Creatinine 0.80 Estimated GFR > 60.0 BUN/Creatinine Ratio 20.0 Glucose 122 H Calcium 9.4 Total Bilirubin 0.8 AST 30 ALT 25 Alkaline Phosphatase 117 Total Creatine Kinase 31 CK-MB (CK-2) TNP CK-MB (CK-2) Rel Index TNP Troponin I < 0.012 < 0.012 Total Protein 7.1 Albumin 4.2 Globulin 2.9 Albumin/Globulin Ratio 1.4 Lipase 60 I have personally reviewed her abdominal ultrasound done this morning in the emergency department. I have also reviewed her past records including breast ultrasound following reconstruction and cardiac nuclear medicine study. Ejection fraction was 48% at that time. Again, no evidence of ongoing breast cancer disease with the above imaging or evaluations. Ultrasound of the abdomen done this morning confirms gallstones which had been diagnosed in September 2017. Common bile duct is of normal caliber. No significant pericholecystic fluid. No significant gallbladder wall thickening. Assessment & Plan Plan: Assessment/Plan Narrative: 68-year-old female with biliary colic secondary to cholelithiasis and probable chronic cholecystitis presenting with significant pain. She currently is controlled after significant amount of intravenous Dilaudid, but I suspect that she will have further symptoms in issues once the medication effect has worn off. I therefore recommend laparoscopic cholecystectomy today. I see no indication currently for cholangiogram based on laboratory study and ultrasound findings. Furthermore she has no symptoms or findings to suggest choledocholithiasis. No evidence of pancreatitis. Technical details of the procedure were reviewed. Alternative for expectant management with outpatient analgesia and elective follow-up to schedule cholecystectomy were also discussed. However, the patient is quite concerned that non operative approach in the near future will fail, and I agree this is very likely. She desires surgery today. I believe this is reasonable given the above issues. Risks, benefits, alternatives for surgery were explained. Risks including but not limited to anesthesia, bleeding, infection, pain, scars, need for drains, need to convert to open procedure, postoperative bleeding, hematoma, seroma, liver injury, gastric injury, duodenal injury, bile duct injury, bile duct leak, small -bowel injury, colon injury, major vascular injury, need for further surgery including major abdominal and liver surgery, need for endoscopic procedures, and all attendant risks of major abdominal surgery were discussed at length. All questions were answered to her satisfaction, and she voiced understanding. Consent was placed on the chart. We will proceed today as above.
--- NOTE | 2018-04-05 08:14 | PM.PREOP ---
Pre-operative Note Interval Note Pre-op Check: Yes History & Physical Reviewed by Physician, Yes Exam Performed and Yes History & Physical exam performed today by Physician Changes: No H&P completed within 30 days and has changed as indicated here:: Patient seen and examined today. History and physical examination documented and placed on the chart. There have been no changes to the H&P over the last hour since her evaluation in the emergency department. Proceed with laparoscopic cholecystectomy today as planned.
[2018-04-05] MEDS: CEFAZOLIN 2 GM/100 ML FROZ.PIGGY IV (09:08)
--- NOTE | 2018-04-05 09:59 | SUR.OPER ---
Supine on padded OR bed, head on pillow, arms secured on padded arm boards at <90 degrees abduction, legs uncrossed, safety belt at thigh, tape over blanket over lower legs.
[2018-04-05] MEDS: LACTATED RINGERS 1,000 ML 42 ML IV (10:33)
[2018-04-05] MEDS: BUPIVACAINE 0.25% MDV 50 ML INJ (11:00)
[2018-04-05] MEDS: LIDOCAINE 1% W/EPI INJ 20 ML INJ (11:01)
--- NOTE | 2018-04-05 11:23 | P.OP_ITS ---
Operative Date/Time/Diagnoses Date of procedure: 04/05/18 Time of procedure: 11:10 Pre-op diagnosis: Acute cholecystitis secondary to cholelithiasis Post-op diagnosis: other (Acute cholecystitis superimposed on chronic cholecystitis secondary to cholelithiasis) Procedure & Clinicians Procedure: Laparoscopic cholecystectomy Same procedure as scheduled: Yes Indications: 68-year-old female who presented the emergency department early this morning with progressive severe right upper quadrant and epigastric pain. Examination and evaluation were consistent with acute cholecystitis secondary to cholelithiasis. She had also had episodes of biliary colic throughout the entire year this year. She was therefore recommended undergo laparoscopic cholecystectomy today. Surgeon: Hank Kamara Click Yes if Unassisted: Yes Anesthesia Type: General Operative Notes Findings: 1. Dense adhesions between the omentum, duodenum, and gallbladder extending all the way to the tip of the fundus of the gallbladder. 2. Mildly congested liver which was rather friable possibly due to prior chemotherapy and/or hepatic steatosis in the setting of acute inflammation around the gallbladder 3. Otherwise normal appearing liver without lesions 4. Normal small bowel, colon, omentum, and peritoneum in the setting of limited laparoscopic visualization 5. No free fluid or pus within the abdomen or pelvis 6. Extremely friable gallbladder consistent with acute inflammation superimposed on chronic inflammatory changes Closure Type: primary Specimen(s): other (Gallbladder) Implants & Drains: Romie-Lara drain in subhepatic space and gallbladder fossa left to bulb suction Applied: drain(s) (See above) Estimated Blood Loss (mL): 100 Blood products transfused: none Procedure in detail: After obtaining informed consent the patient was brought to the operating room and placed supine on the table. After satisfactory induction of anesthesia the abdomen was prepped and draped in usual sterile fashion. SCOAP time out was performed per standard protocol. A one-to-one mixture 1% lidocaine with 1 :100,000 epinephrine and 0.5% plain Marcaine was injected in the skin and subcutaneous tissue at the superior aspect of the umbilicus above an existing scar in order to achieve postoperative analgesia. Vertical midline incision was created with 11 scalpel blade just above the umbilicus for a distance of approximately 2 cm. Blunt dissection was used to expose the rectus fascia which was divided in the midline with 11 scalpel blade. Edges of the fascia were secured with Nancy clamps and elevated into the operative field. Fascia was then secured superiorly and inferiorly with interrupted 0 Vicryl suture. Underlying peritoneum was exposed and secured between hemostats then entered under direct visualization sharply with 11 scalpel blade and Metzenbaum scissors. Great care was taken avoid underlying intraperitoneal structures. Blunt 12 mm Zapata trocar was then inserted into the peritoneal cavity and a carbon dioxide pneumoperitoneum was created. The abdomen was visually explored with a 30 degree 5 mm laparoscope. Findings are as above. Patient was placed in reverse Trendelenburg position and additional 5 mm trocars were placed under direct laparoscopic visualization after achieving local anesthesia and incising the skin with 11 scalpel blade. Epigastric trocar was inserted just to the right of the falciform ligament and 2 individual additional trocars were placed in the right lateral abdomen. Fundus of the gallbladder was be barely visible and secured tentatively with ratcheted grasper. Gallbladder was elevated into the operative field where a Alice grasper was used to bluntly dissect through the dense adhesions adjacent to the gallbladder wall thereby exposing the gallbladder in its entirety. The fundus of the gallbladder was then secured again with a ratcheted grasper and retracted superiorly and medially over the liver edge. Infundibulum of the gallbladder were secured with a Alice grasper and retracted inferiorly and laterally. At this point, however, the infundibulum of the gallbladder tore easily due to the acute inflammation just above the insertion of the cystic duct. Several small stones and a small amount of bile were expressed but then suction from the abdomen. Stones were removed with a Alice grasper and discarded. Meticulous gentle dissection with a Maryland dissector and laparoscopic Kittner dissector was performed to encircle the cystic duct and isolated from surrounding structures. The junction of the cystic duct which was still barely intact after the gallbladder had torn was identified. Critical view of the liver bed between within the avascular plane between the cystic artery, cystic duct, and infundibulum of the gallbladder was identified and clearly visualized. Cystic duct was then controlled with 3 clips proximally and 1 at the junction then divided with the scissors. Unfortunately the cystic artery tore after this maneuver given the significant inflammatory changes. The artery had been in its usual anatomic position just posterior to the cystic duct. The arterial stump was readily identified and immediately secured with the [place] dissected where it was elevated into the operative view. Three clips were then placed proximally on the artery thereby controlling the structure adequately. No further hemorrhage was identified. Gallbladder was then removed from the hepatic bed using monopolar cautery. Specimen was placed in an endo-pouch and retrieved through the umbilical incision. Specimen was sent for permanent section. Gallbladder bed was rendered hemostatic with monopolar cautery. Right upper quadrant was irrigated with copious amounts of sterile saline solution and suction from the abdomen and noted to be clear. Hepatic bed was meticulously examined and noted to be hemostatic. No evidence of any bile leak. Previously placed clips on the cystic duct and cystic artery were again meticulously visualized on several occasions and noted to be hemostatic without evidence of bile leak as well. Residual small amount of blood clot, bile, and gallstones were removed with the suction journalists and other writers as well as Alice graspers. Again hemostasis was verified and there was no evidence of bile leak so the patient was replaced in the supine position. A Romie-Lara drain was inserted through the epigastric trocar site and exteriorized through the right lateral abdominal trocar site were it was secured to the skin with a 3 0 nylon suture. Drain was placed in the subhepatic space adjacent to the gallbladder fossa and hao hepatis. Right upper quadrant was again irrigated with copious sterile saline solution and suction from the abdomen. Irrigant returned clear. At least 1 L of irrigation was utilized. Instruments and trocars were then removed under direct visualization and hemostasis verified. Carbon dioxide was evacuated. Fascia at the umbilical site was closed with the previously placed 0 Vicryl suture. Skin was closed at the remaining 3 incisions using 4 O Monocryl running subcuticular suture. Dermal adhesive was applied to the incisions. Sterile dressing was placed around the drain site. Anesthesia was reversed and patient extubated in the operating room. She was taken recovery stable condition. Complications: none Condition: stable Disposition: PACU Plan for aftercare: 1. Return to the regular surgical floor for ongoing convalescence and observation 2. Patient to learn drain care and she will be discharged home with drain in place to be removed at a later time in the outpatient clinic
[2018-04-05] MEDS: HYDROMORPHONE 2 MG INJ 1 MG IV (12:01)
--- NOTE | 2018-04-05 13:13 | PC.NURSE ---
Addendum entered by Mena Bauer R.N. 04/05/18 14:57: 1430: Pt resting peacefully. O2 monitor placed back on. Asked pt if she would like to sit in the chair. Refuses at this time. Denies pain. Original Note: Day Shift 1130: Pt admitted to floor. Complains of nausea and pain. Medication given. VSS. A/o x4.
--- NOTE | 2018-04-05 16:35 | P.PN_ITS ---
Subjective Date Patient Seen: 04/05/18 Time Patient Seen: 16:31 Interval history: Patient denies significant pain. Current pain regimen is working effectively. Drain output has been approximately 20 cc of serosanguineous fluid only. Patient denies any chest pain or shortness of breath. She does not feel subjectively distended. Has not urinated since surgery however. Tolerating clear liquids without pain. No nausea or vomiting. Overall she is feeling better since her time of admission this morning. Exam Vital Signs (past 8 hours): - 04/05/18 08:47 04/05/18 10:50 04/05/18 10:51 Temperature 99.7 F H 99.2 F Pulse Rate 81 61 Respiratory Rate 16 16 Blood Pressure 148/100 H 91/53 L Pulse Oximetry 96 87 L 99 04/05/18 10:55 04/05/18 11:00 04/05/18 11:10 Temperature Pulse Rate 64 67 70 Respiratory Rate 16 17 17 Blood Pressure 114/70 105/68 117/79 Pulse Oximetry 100 99 98 04/05/18 11:20 04/05/18 11:30 04/05/18 12:00 Temperature 99.6 F 98.1 F 97.6 F Pulse Rate 71 73 71 Respiratory Rate 17 18 18 Blood Pressure 129/79 136/91 H 125/83 Pulse Oximetry 97 99 98 04/05/18 12:30 04/05/18 13:30 04/05/18 14:30 Temperature 98.7 F 98.6 F 98.4 F Pulse Rate 71 78 78 Respiratory Rate 18 17 16 Blood Pressure 129/78 142/82 H 123/78 Pulse Oximetry 97 95 93 04/05/18 15:47 Temperature 98.9 F Pulse Rate 82 Respiratory Rate 18 Blood Pressure 142/80 H Pulse Oximetry 96 Oxygen Delivery Method Nasal Cannula Oxygen Flow Rate 2 Narrative Exam Narrative: Well-nourished well-developed female sitting comfortably in bed in no acute distress. Alert oriented x3. Temperature maximum 99.2?. Current temperature 98.4?. No tachycardia. Regular rate rhythm. Blood pressure 123/78. Room air saturation fluctuating between 93% and 97%. No crackles or wheezes. Abdomen slightly distended but soft. She is appropriately tender. No guarding or rebound. Drain site is clean. Again, drain output is serosanguineous only. Incisions are otherwise clean, dry, and intact without ecchymosis or erythema. No wound drainage. Objective Labs Result Diagrams: 04/05/18 02:21 04/05/18 02:21 Labs: Laboratory Results - last 24 hr 04/05/18 04/05/18 04/05/18 02:21 02:21 04:17 WBC 10.4 RBC 4.01 Hgb 14.1 Hct 40.6 MCV 101.2 H MCH 35.2 H MCHC 34.7 RDW 13.0 Plt Count 223 Neut % (Auto) 83.6 H Lymph % (Auto) 10.0 L [place] % (Auto) 5.2 Eos % (Auto) 0.8 L Baso % (Auto) 0.4 Neut # (Auto) 8700 H Sodium 136 L Potassium 4.0 Chloride 99 Carbon Dioxide 26 BUN 16 Creatinine 0.80 Estimated GFR > 60.0 BUN/Creatinine Ratio 20.0 Glucose 122 H Calcium 9.4 Total Bilirubin 0.8 AST 30 ALT 25 Alkaline Phosphatase 117 Total Creatine Kinase 31 CK-MB (CK-2) TNP CK-MB (CK-2) Rel Index TNP Troponin I < 0.012 < 0.012 Total Protein 7.1 Albumin 4.2 Globulin 2.9 Albumin/Globulin Ratio 1.4 Lipase 60 No new laboratory or radiographic studies for review since surgery Assessment & Plan Plan: Assessment/Plan Narrative: 68-year-old female doing well status post laparoscopic cholecystectomy today. She is still having some issues with intermittent oxygen requirement when her saturations decreased slightly. She has not yet urinated. She is not yet tolerating adequate liquids or regular food. I therefore have recommended that she stay as an inpatient status for overnight observation. She is agreeable. Continue current care otherwise. I reviewed all the intraoperative findings with her. All questions were answered to her satisfaction, and she voiced understanding. Quality VTE Deep Vein Thrombosis/Pulmonary Embolism Present on Admission: No
[2018-04-05] MEDS: SODIUM CHLORIDE 0.9% 1,000 ML 84 ML IV (17:26)
[2018-04-05] MEDS: OXYCODONE IR 5 MG TABLET PO ×2 (17:36→20:27)
[2018-04-05] MEDS: SENNOSIDES 8.6 MG TABLET PO (20:09)
[2018-04-05] MEDS: LOSARTAN 25 MG TABLET PO (20:11)
[2018-04-05] MEDS: DOCUSATE 100 MG CAPSULE PO (20:11)
[2018-04-05] MEDS: LETROZOLE 2.5 MG TABLET PO (20:18)
[2018-04-06 00:40] VITALS: BP 146/81; PULSE 78; RESP 20; TEMP 36.6; O2SAT 98
[2018-04-06] MEDS: SODIUM CHLORIDE 0.9% 1,000 ML 84 ML IV (01:53)
[2018-04-06] MEDS: OXYCODONE IR 5 MG TABLET PO ×2 (01:58→06:45)
[2018-04-06] MEDS: diphenhydrAMINE 50 MG/ML VIAL 25 MG IV ×2 (02:06→08:41)
[2018-04-06 03:20] VITALS: BP 160/79; PULSE 84; RESP 20; TEMP 36.8; O2SAT 96
--- NOTE | 2018-04-06 04:42 | PC.NURSE ---
Pt is A and O x 4, VSS abd drsg C/D/I. DEEP putting out small amount of sero sanguinous. Pt rates pain 4/10 and gets good relief from 5 mg oxycodone. Pt has been able to sleep and has voided qs clear yellow urine.
[2018-04-06] MEDS: PANTOPRAZOLE 40 MG PACKET 20 MG PO (06:48)
[2018-04-06 07:30] VITALS: BP 155/83; PULSE 86; RESP 16; TEMP 36.7; O2SAT 97
[2018-04-06] MEDS: METOPROLOL ER 50 MG TABLET 200 MG PO (08:40)
[2018-04-06] MEDS: OXYCODONE IR 5 MG TABLET 10 MG PO ×2 (09:55→14:28)
[2018-04-06] MEDS: ACETAMINOPHEN 325 MG TABLET 650 MG PO (09:56)
--- NOTE | 2018-04-06 10:42 | PC.NURSE ---
Addendum entered by Nupur Strickland R.N. 04/06/18 15:48: Discharge: Late entry IV dc'd intact. Reviewed all d/c instructions thoroughly. Reviewed DEEP drain care and given hand-outs regarding the same. Instructed to empty and write down drainage amounts at least once/day. Given some supplies for dressing changes. Instructed re: no swimming/pool/hot-tub until cleared by MD. Provided with script for PO Dilaudid. All personal belongings collected and sent home with patient. She verbalized understanding of all d/c info and stated no further questions. Ambulated out to private vehicle accompanied by this scenario writer. Original Note: Shift summary: Awake and alert, oriented X3. C/O 10 R sided abdominal pain, medicated w/Tylenol and Oxycodone for the same. Given fresh ice pack to place on belly. 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 Dressing at DEEP site (R abd) C/D/I. DEEP compressed and with scant sero-sanguinous drainage. BT+, flatus+. Abd soft, mildly distended. Tolerating regular diet without N/V. IVF per orders, site in R AC WNL. Able to make needs known and calls appropriately. Light in reach, bed alarm on.
[2018-04-06 12:20] VITALS: BP 138/84; PULSE 89; RESP 16; TEMP 36.6; O2SAT 95
--- NOTE | 2018-04-06 13:15 | PM.DS.1 ---
History of Present Illness Date Patient Seen: 04/06/18 Time Patient Seen: 13:15 Chief complaint: thinks she is having gall bladder attack Narrative: 68-year-old female with known history of cholelithiasis initially diagnosed at least September 2017 when she presented to the emergency department with right upper quadrant abdominal pain, nausea, and vomiting. She presented late last evening to the emergency department here at [facility] once again with similar symptoms but no vomiting. She last ate a regular meal approximately 7:00 p.m. yesterday. Several hours later she began to experience significant epigastric and right upper quadrant abdominal pain described as sharp and unrelenting. She was having some mild shortness of breath due to the pain since she was unable to take of deep breath without exacerbation of her symptoms. Pain did not radiate to the back of the shoulder. She has received at least 3 doses of intravenous Dilaudid prior to my arrival in the emergency department this morning, and the patient denies significant pain at the moment. She is not nauseated. However, she is not particularly hungry either. She reports normal bowel and bladder function recently. Last bowel movement was within the last 1-2 days. She denies any recent jaundice, dark brown urine, or acholic stools. No subjective fevers or chills. Again, she is feeling better at the moment following the above medications. 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) Cholelithiasis (Acute) History of antineoplastic chemotherapy (Acute) Neuropathy (Acute) Anemia (Chronic 2016) Chronic back pain (Chronic 1967) Depression (Chronic 1999) Eczema (Chronic 2007) Foot pain (Chronic 2016) Hypertension (Chronic 1989) Lumbar spine pain (Chronic 1967) Shoulder pain (Chronic 2016) Sleep apnea (Chronic 2006) Breast cancer (Resolved 2015) Chicken pox (Resolved 1956) Hemorrhoids (Resolved 1994) History of left mastectomy (Acute) Status post left breast reconstruction (Acute) Anesthesia (Resolved) History of knee replacement (Resolved 10/2014) History of lumpectomy (Resolved 2015) Status post partial mastectomy (Resolved 06/2016) Hospital Course: Patient presented the emergency department with right upper quadrant abdominal pain and was taken to the operating room urgently for laparoscopic cholecystectomy. She tolerated this well. Romie-Lara drain was left behind to drain the subhepatic space. She was then taken to the regular surgical floor postoperatively where she remained afebrile and hemodynamically stable. By postoperative day 1 she has been ambulating without difficulty. She has experienced return of normal baseline bowel and bladder functions spontaneously. She is tolerating a regular diet without issue. No nausea or vomiting. Her pain is well controlled with oral oxycodone but she is having some mild itching. She will therefore be discharged on Dilaudid orally. Drain is collecting approximately 25 cc of serosanguineous fluid only. No bile. She has been stable on all of her usual home medications. Her incisions are healing nicely without evidence of any complications or problems. Because of her stable condition she is discharged home on postoperative day 1. She will take her medications as prescribed. She will follow up in clinic in 1 week for drain removal. She has been instructed on drain care and is comfortable with such. She understands, however, to call or return sooner for fever, chills, nausea, vomiting, inability to tolerate a diet, progressive abdominal pain, or abnormal wound drainage. All questions were answered to her satisfaction, and she voiced understanding. Status at Discharge Cognitive/behavioral status at discharge: Alert, oriented x3. Good spirits at discharge. Functional status at discharge: independent ambulation Overall status at discharge: patient is progressing back to baseline Time Spent with Patient Less than 30 minutes Exam Vital Signs (past 8 hours): - 04/06/18 07:30 04/06/18 12:20 Temperature 98.0 F 97.8 F Pulse Rate 86 89 Respiratory Rate 16 16 Blood Pressure 155/83 H 138/84 Pulse Oximetry 97 95 Oxygen Delivery Method Room Air Oxygen Flow Rate 2 Narrative Exam Narrative: Well-nourished well-developed female resting comfortably in bed in no acute distress. She has tolerated her breakfast and lunch tray. Alert oriented x3 Sclera nonicteric Chest clear to auscultation bilaterally. No crackles or wheezes. Abdomen is protuberant but soft. Appropriately tender to palpation without guarding or rebound. Drain output is serosanguineous only. No pus. No bile. Incisions are clean, dry, and intact without erythema or ecchymosis. Extremities show no clubbing, cyanosis, or edema Objective Labs Result Diagrams: 04/05/18 02:21 04/05/18 02:21 Labs: No new study since surgery Discharge Plan Discharge Plan Patient Disposition: Home Discharge Med Rec/Prescriptions Prescriptions: New hydromorphone [Dilaudid] 2 mg tablet 2 mg PO Q4-6H PRN (Reason: pain) Qty: 30 RF: 0 Continue triamcinolone acetonide 0.5 % cream 1 ld Topical PRN Qty: 0 RF: 0 cholecalciferol (vitamin D3) [Vitamin D3] 1,000 UNIT tablet 6,000 mg PO QDAY Qty: 0 RF: 0 CHLORZOXAZONE (PARAFON FORTE DSC) 500 mg PO TID Qty: 60 RF: 2 allopurinol 100 mg tablet See Label Instructions PO DAILY Qty: 63 RF: 0 allopurinol 300 mg tablet 300 mg PO DAILY Qty: 90 RF: 1 omeprazole 20 mg capsule,delayed release(DR/EC) 20 mg PO QDAY Qty: 30 RF: 6 ondansetron [Zofran ODT] 4 mg tablet,disintegrating 4 mg Sublingual Q6HP PRN (Reason: nausea and vomiting) Qty: 60 RF: 1 fluoxetine 40 mg capsule 40 mg PO QDAY Qty: 90 RF: 0 letrozole 2.5 mg tablet 2.5 mg PO DAILY RF: 0 losartan 25 mg tablet 25 mg PO DAILY RF: 0 [HANDICAPPED PARKING] 1 ea MISC X1 Qty: 1 RF: 0 tramadol 50 mg tablet See Label Instructions PO Q8H PRN (Reason: pain) Qty: 60 RF: 0 cetirizine [Zyrtec] 10 mg Tablet 10 mg PO DAILY RF: 0 amitriptyline 50 mg Tablet 50 mg PO DAILY RF: 0 lorazepam 0.5 mg Tablet 1 - 2 tab PO Q6HR RF: 0 ascorbic acid (vitamin C) [Vitamin C] 500 mg Capsule, Extended Release 500 mg PO DAILY RF: 0 hydrochlorothiazide 25 mg Tablet 25 mg PO DAILY RF: 0 metoprolol succinate 100 MG tablet extended release 24 hr 200 mg PO QDAY RF: 0 oxycodone-acetaminophen [Percocet] 5-325 mg tablet 1 tab PO Q4-6H PRN (Reason: pain) Qty: 10 RF: 0 Follow up/Referrals: Hank Kamara MD [Physician] - 04/13/18 12:00 am (Please call office for exact appointment date and time) Provider Discharge Instructions Diet: Diet as Tolerated Diet comment: No specific restrictions Activity: No lifting more than 20 lb until further notice May walk as much as desired May climb stairs May ride in vehicle No driving while taking opioid pain medication Cold/Heat Therapy: May apply ice pack to incisions as needed for comfort Other treatments: Empty and record drain output at least once daily as instructed Skin/Wound/Dressing Care Report to your healthcare provider any signs of infection, such as:: chills, fever, increased pain and unusual drainage Dressing: May replace gauze dressing around drain site once daily and as needed No dressings necessary on remainder of incisions Other wound treatment: May shower Do not soak incisions in bathtub or pool for 2 weeks Visit Report/Discharge Packet Instructions: Gallstones, DI for Cholecystectomy, DI for Romie-Lara Drains, How to Use and Care for Your Romie-Lara Drain Visit Report Forms: Stroke Signs & Symptoms Discharge Data Primary Care Provider: Michael Salcido Attending Provider: Hank Kamara Admit Date/Time: 04/05/18 07:32 Quality VTE Deep Vein Thrombosis/Pulmonary Embolism Present on Admission: No
--- NOTE | 2018-04-06 15:34 | CM.DANOTE ---
Discharge Planning/Care Management DCP: assessment: case received, EMR reviewed. Discussed case in morning Team Rounds. Pt is a 68 year old female who admitted to care of [facility] surgeons: Dr. Kamara yesterday. PCP: Dr. Michael Salcido Payer: Vikas FERGUSON RN coordinator Ирина Odom confirmed that pt had a Laproscopic Cholecystectomy yesterday and had returned to the floor with DEEP drain still in place. Planned to check in with pt later in day. Expectation by the care team is that pt would go home when stable for same. Dr. Kamara did come in mid afternoon and ok'd pt for a return home with drain in place. Went to room to check in with pt....room empty. PILO Espitia said that she had been comfortable with the drain care, felt very comfortable going home today and left with her . Followup will be with Dr. Kamara in his clinic. CM Discharge Assessment Start: 04/06/18 15:32 Freq: Status: Active Protocol: Document 04/06/18 15:33 ITV (Rec: 04/06/18 15:34 ITV [id number]) Discharge Planning Assessment Advance Directives? No History Provided By Medical Record Prior Living Arrangements House Household Members spouse Independent with ADL's Yes Is patient alert and oriented? Yes Comment pending Review Status In Process Next Review Type Continued Stay Review
== END 2018-04-06 15:52 | disposition home or self-care (01) ==
LOC: ED 06:34 → AC 07:32
PROVIDERS: Admitting Provider Surgery; Emergency Provider Emergency Medicine; Family Provider Family Medicine; PCP Family Medicine; Visit Provider Surgery
PROC: 0FT44ZZ Resection of Gallbladder, Percutaneous Endoscopic Approach (ICD-10-PCS; CPT 47562; principal; 2018-04-05 08:35)
DX: K80.00 Calculus of gallbladder with acute cholecystitis without obstruction (principal); R10.13 Epigastric pain; R11.2 Nausea with vomiting, unspecified; R07.9 Chest pain, unspecified; I10 Essential (primary) hypertension; G47.33 Obstructive sleep apnea (adult) (pediatric); K82.8 Other specified diseases of gallbladder; K76.1 Chronic passive congestion of liver
CPT/HCPCS: 47562; 36415; 36591; 71045; 76700; 80053; 82550; 83690; 84484; 85025; 93005; 93041; 96361; 96374; 96375; 96376; 99285; G0378; J0330; J0690; J1100; J1170; J1200; J1885; J2405; J2704

== ENCOUNTER 2018-05-14 12:37 | Day surgery (SDC) | payer OTHER, SELFPAY ==
[2018-04-05 13:41] VITALS: BMI 31.4
--- NOTE | 2018-05-14 | PATH_ITS ---
[facility] Accession Number: [id number] . 01 Material submitted: . TRANSVERSE COLON POLYP AT 60CM . 02 Diagnosis: Transverse Colon Polyp at 60 cm: Tubular adenoma. MRV/05/15/2018 . 02 Electronically signed: . Carl Ennis MD, PhD, Pathologist NPI- [id number] . 01 Gross description: . Received in one formalin-filled container labeled with the patient's name and labeled transverse colon polyp at 60, are two 0.3-0.4 cm portions of tissue, entirely submitted in one cassette. ([id number]) /FRR . 02 Pathologist provided ICD-10: D12.3 . 02 CPT . 270192 Performed at: 01 [facility] [address] [id number] MD Patrick Regan MD Phone: [phone] Performed at: 02 [facility] [address] [place], [place] [id number] MD Carolyne Gillis MD Phone: [phone]
[2018-05-14 13:26] VITALS: BMI 30.1
[2018-05-14 13:42] VITALS: BP 123/85; PULSE 86; RESP 20; TEMP 37.1; O2SAT 95
[2018-05-14] MEDS: SODIUM CHLORIDE 0.9% 1,000 ML 21 ML IV (13:44)
--- NOTE | 2018-05-14 14:04 | PM.HP.1 ---
History of Present Illness Date Patient Seen: 05/14/18 Time Patient Seen: 14:04 Chief complaint: [id number] Narrative: 68-year-old female well known to me from recent surgical procedure who presents now for her scheduled unrelated screening colonoscopy. She and I had discussed this procedure in the office at her most recent visit a month ago. She has completed her bowel preparation. I again reviewed the technical details of the procedure. She denies any gastrointestinal symptoms currently. No nausea, vomiting, loss of appetite, unexplained weight loss, abdominal pain, change in bowel habits, diarrhea, constipation, melena, hematochezia, or bright red blood per rectum. Patient History Family & Social History Social History: household members spouse Tobacco & Substance use: Smoking Status Never smoker alcohol intake frequency 0-2 drinks per day Substance Use Type does not use Meds Home Medications Medication Instructions Recorded Confirmed Type triamcinolone acetonide 1 ld TOPICAL PRN PRN #0 02/06/16 05/14/18 History cholecalciferol (vitamin D3) 6,000 mg PO QDAY #0 03/08/16 05/14/18 History [Vitamin D3] CHLORZOXAZONE (PARAFON FORTE DSC) 500 mg PO TID #60 tab 08/28/16 05/14/18 Rx tramadol 50 mg tablet See Label Instructions PO Q8H PRN 11/07/17 05/14/18 Rx #60 tab allopurinol 300 mg tablet 300 mg PO DAILY #90 tab 12/26/17 05/14/18 Rx omeprazole 20 mg PO QDAY #30 cap 01/16/18 05/14/18 Rx ondansetron 4 mg disintegrating 4 mg SUBLINGUAL Q6HP PRN #60 odt 02/20/18 05/14/18 Rx tablet letrozole 2.5 mg tablet 2.5 mg PO DAILY 02/27/18 05/14/18 History losartan 25 mg tablet 25 mg PO DAILY 02/27/18 05/14/18 History fluoxetine 40 mg capsule 40 mg PO QDAY #90 tab 03/11/18 05/14/18 Rx cetirizine [Zyrtec] 10 mg PO DAILY 04/05/18 05/14/18 History metoprolol succinate 100 mg PO QDAY 04/05/18 05/14/18 History lynkubpk-qhx-zuvq-FA-lutein 1 tab PO DAILY 05/14/18 05/14/18 History [Centrum Silver Women] Allergies Allergy/AdvReac Type Severity Reaction Status Date / Time No Known Drug Allergies Allergy Verified 05/14/18 13:20 Review of Systems Review of Systems All systems reviewed & are unremarkable except as noted in HPI and below Exam Vital Signs (past 8 hours): - 05/14/18 13:42 Temperature 98.8 F Pulse Rate 86 Respiratory Rate 20 Blood Pressure 123/85 Pulse Oximetry 95 Oxygen Delivery Method Room Air Narrative Exam Narrative: Well-nourished well-developed female in no acute distress. Alert oriented x3 Sclera nonicteric Regular rate and rhythm. No wheezes Abdomen soft, nondistended, nontender, no masses Extremities show no clubbing or cyanosis Objective Labs Labs: No new laboratory or radiographic studies for review Assessment & Plan Plan: Assessment/Plan Narrative: 68-year-old female presenting for colorectal screening. Colonoscopy is recommended. Technical details reviewed. Risks, benefits, and alternatives were explained. Risks including but not limited to sedation, aspiration, bleeding, pain, missed lesion, incomplete examination, need for further radiographic studies, colonic perforation, need for major abdominal surgery, and all attendant risks of major surgery were explained at length. All questions were answered to her satisfaction, and she voiced understanding. Consent was placed on the chart. We will proceed as above.
--- NOTE | 2018-05-14 14:06 | PM.PREOP ---
Pre-operative Note Interval Note History & Physical reviewed/Exam performed by Physician: Yes Changes to H&P: No H&P completed within 30 days and has changed as indicated here:: Patient seen and examined. History physical examination on the chart. No changes obviously. Proceed with colonoscopy today as planned. ASA Class (for procedural sedation): II
[2018-05-14] MEDS: MIDAZOLAM 5 MG/5 ML VIAL IV (14:15)
[2018-05-14] MEDS: fentaNYL 250 MCG/5 ML INJ IV (14:16)
--- NOTE | 2018-05-14 14:30 | PM.OP.ENDO ---
Operative Date/Time/Diagnoses Date of procedure: 05/14/18 Time of procedure: 14:30 Pre-op diagnosis: Colorectal screening Post-op diagnosis: other (Diverticulosis and colon polyp) Procedure & Clinicians Study performed: 1. Sedation per surgeon 2. Colonoscopy with cold forceps polypectomy Same procedure as scheduled: Yes Indications: 68-year-old female requiring colorectal screening. Colonoscopy is recommended. Surgeon: Hank Kamara Procedure Notes SCOAP/Timeout: Yes Procedure in detail: After obtaining informed consent, the patient was brought to the GI suite and placed in the left lateral decubitus position on the examination table. After placement of appropriate monitors, the patient was given incremental doses of Versed and Fentanyl until an appropriate level of sedation was achieved. A time out was held per SCOAP protocol. A digital rectal examination was performed and did not reveal any masses or obstructing lesions. The colonoscope was gently passed into the patient's anus and the entire colon navigated to the level of the cecum with minimal difficulty. Once in the cecum, the scope was withdrawn being sure to go before and beyond all mucosal folds and prominences and get an excellent examination. The findings are noted above. At the level of the rectal vault, the scope was retroflexed and the internal anal canal was examined. The scope was straightened and air aspirated from the colon. The instrument was removed from the patient's body and the procedure was concluded. The patient was allowed to awaken from sedation without difficulty and taken to the post-anesthesia care unit in good condition. Scope withdrawal time: 7:07 min Sedation minutes: 20 Findings: diverticulosis and polyp (Transverse colon polyp at 60 cm) Specimen(s): other (Polyp as above) Complications: none Recommendations: Colonscopy in 5 years, High fiber diet and Will call with biopsy results Plan for aftercare: 1. Discharge home Follow up: as needed Disposition: PACU
[2018-05-14 14:34] VITALS: BP 120/77; PULSE 82; RESP 18; TEMP 37.3; O2SAT 96
[2018-05-14 14:39] VITALS: BP 109/67; PULSE 78; RESP 20; O2SAT 93
[2018-05-14 14:44] VITALS: BP 114/71; PULSE 81; RESP 20; O2SAT 92
[2018-05-14 14:49] VITALS: BP 117/68; PULSE 82; RESP 16; TEMP 37.2; O2SAT 94
[2018-05-14 15:15] VITALS: BP 116/75; PULSE 80; RESP 16; TEMP 37; O2SAT 95
== END 2018-05-14 15:30 | disposition home or self-care (01) ==
PROVIDERS: Family Provider Family Medicine; PCP Family Medicine; Visit Provider Surgery
PROC: 0DJD8ZZ Inspection of Lower Intestinal Tract, Via Natural or Artificial Opening Endoscopic (ICD-10-PCS; CPT 45378; principal; 2018-05-14 15:00)
DX: Z12.11 Encounter for screening for malignant neoplasm of colon (principal); K57.30 Diverticulosis of large intestine without perforation or abscess without bleeding; D12.3 Benign neoplasm of transverse colon
CPT/HCPCS: 45380; 99152; J2250; J3010

== ENCOUNTER → 2018-07-13 10:15 | Outpatient (CLI) | payer OTHER, SELFPAY ==
[2018-04-05 13:41] VITALS: BMI 31.4
[2018-07-13 11:12] LABS: Add Manual Diff / Slide Review NO; Basophils Absolute Auto 0 /uL (0-100); Basophils Percent Auto 0.6 % (0-2); Eosinophils Absolute Auto 200 /uL (0-450); Eosinophils Percent Auto 2.8 % (2-4); Hematocrit 40.2 % (36-46); Hemoglobin 13.7 g/dL (12.0-16.0); Lymphocytes Absolute Auto 1500 /uL (1100-4500); Lymphocytes Percent Auto 19.7 % (25-40); Mean Corpuscular HGB Conc 34.2 % (30-36); Mean Corpuscular Hemoglobin 34.5 PG (26-34); Mean Corpuscular Volume 100.9 fL (80-100); Monocytes Absolute Auto 600 /uL (0-900); Monocytes Percent Auto 7.7 % (3-14); Neutrophils Absolute Auto 5100 /uL (1500-7000); Neutrophils Percent Auto 69.2 % (50-75); Platelet Count 232 X10^3/uL (150-400); Red Blood Cell Count 3.98 X10^6/uL (4.0-5.2); Red Cell Distribution Width 13.2 % (11.6-14.8); White Blood Cell Count 7.4 X10^3/uL (4.5-11.0)
[2018-07-13 12:12] LABS: Alanine Aminotransferase 30 IU/L (9-52); Albumin 4.1 g/dL (3.5-5.0); Albumin Globulin Ratio 1.5 (1.0-2.8); Alkaline Phosphatase 128 U/L (38-126); Aspartate Aminotransferase 25 IU/L (14-36); BUN Creatinine Ratio 22.2 (6-22); Bilirubin Total 1.1 mg/dL (0.2-1.3); Blood Urea Nitrogen 20 mg/dL (7-17); Calcium 10.1 mg/dL (8.4-10.2); Carbon Dioxide 29 mmol/L (22-32); Chloride 99 mmol/L (98-107); Cholesterol 229 mg/dL (140-199); Estimated Glomerular Filt Rate > 60.0 mL/min (>60); Globulin 2.8 g/dL (1.7-4.1); Glucose 101 mg/dL (80-110); HDL Cholesterol 71 mg/dL (40-60); HEMOLYSIS < 15 (0-50); LDL Cholesterol Calculated 138 mg/dL (<100); Sodium 137 mmol/L (137-145); Total Protein 6.9 g/dL (6.3-8.2); Triglycerides 100 mg/dL (35-150); Uric Acid 5.9 mg/dL (2.5-6.2)
[2018-07-13 12:27] LABS: Vitamin D 25 Hydroxy (D3) 54.9 ng/mL (30.0-100.0)
[2018-07-13 12:38] LABS: Thyroid Stimulating Hormone 1.19 uIU/mL (0.47-4.68)
== END ==
PROVIDERS: Family Provider Family Medicine; PCP Family Medicine; Visit Provider Family Medicine
DX: I10 Essential (primary) hypertension (principal)
CPT/HCPCS: 36415; 80053; 80061; 82306; 84443; 84550; 85025

== ENCOUNTER → 2018-07-23 16:33 | Outpatient (CLI) | payer OTHER, SELFPAY ==
[2018-04-05 13:41] VITALS: BMI 31.4
--- NOTE | 2018-07-23 16:35 | DI.RAD.S_ITS ---
PROCEDURE: XR WRIST LT MIN 3V INDICATIONS: pain TECHNIQUE: 3 views of the wrist were acquired. COMPARISON: None. FINDINGS: Bones: No fractures or dislocations. No suspicious bony lesions. Mild degenerative joint disease at the radiocarpal joint. Soft tissues: No suspicious soft tissue calcifications. IMPRESSION: No fracture or dislocation. Mild degenerative joint disease. Dictated by: Vel Vasquez M.D. on 07/23/2018 at 17:42 Approved by: Vel Vasquez M.D. on 07/23/2018 at 17:48
--- NOTE | 2018-07-23 16:35 | DI.RAD.S_ITS ---
PROCEDURE: XR KNEE LT 3V INDICATIONS: pain TECHNIQUE: 3 views of the knee were acquired. COMPARISON: [facility], CR, XR KNEE LT 3V, 11/07/2017, 16:15. FINDINGS: Bones: No fractures or dislocations. No suspicious bony lesions. Moderate tricompartmental knee joint degeneration with joint space narrowing and osteophyte formation. Soft tissues: Small to moderate joint effusion. No suspicious soft tissue calcifications. IMPRESSION: Moderate degenerative joint disease. Small to moderate joint effusion. Dictated by: Vel Vasquez M.D. on 07/23/2018 at 17:51 Approved by: Vel Vasquez M.D. on 07/23/2018 at 17:52
--- NOTE | 2018-07-23 16:35 | DI.RAD.S_ITS ---
PROCEDURE: XR HIP W PEL IF DONE LT MIN 4V INDICATIONS: pain TECHNIQUE: AP pelvis with lateral view(s) of the left and right hip(s). COMPARISON: [facility], CR, XR LUMBAR SPINE 2-3V, 07/23/2018, 16:33. FINDINGS: Bones: No fractures or dislocations. Pelvic ring appears intact. No suspicious bony lesions. Soft tissues: The visualized bowel gas pattern is normal. No suspicious soft tissue calcifications. IMPRESSION: No fracture or dislocation. Dictated by: Vel Vasquez M.D. on 07/23/2018 at 17:50 Approved by: Vel Vasquez M.D. on 07/23/2018 at 17:51
--- NOTE | 2018-07-23 16:35 | DI.MRI.S_ITS ---
PROCEDURE: MR LUMBAR SPINE WO CON INDICATIONS: LOW BACK PAIN RADIATING INTO BIALTERAL HIPS AND DOWN BOTH LEGS TECHNIQUE: Noncontrast sagittal T1 spin echo and T2 fast echo, sagittal STIR, axial T1 and T2 fast spin echo through the lumbar spine. In cases with scoliosis, additional coronal T2 fast spin echo may be performed. COMPARISON: None. FINDINGS: Image quality: Excellent. Alignment and Curvature: Trace retrolisthesis of L2 on L3 and L3 on L4, as well as L4-L5. Bone Marrow: Degenerative endplate signal abnormality, most pronounced at L3-L4 and L4-L5. No acute vertebral body compression fractures. Spinal Cord: Conus medullaris terminates at the L1-L2 level. Visualized cord demonstrates normal signal and size. Paraspinous Soft Tissues: No paravertebral masses. There is nonspecific, dependent posterior subcutaneous soft tissue edema from level of L3-L5 L1-L2: Broad-based posterior disc bulge bilateral facet arthropathy. There is also dorsal epidural lipomatosis with mild canal narrowing. Lateral recesses appear grossly patent. No definite foraminal stenoses. L2-L3: Broad-based posterior disc bulge and bilateral facet arthropathy. Dorsal epidural lipomatosis. Moderate canal narrowing. There is also partial effacement of both lateral recesses although symmetric appearance. Mild bilateral foraminal narrowing. L3-L4: Broad-based posterior disc bulge and posterior osteophyte formation, with bilateral facet arthropathy. Mild to moderate canal narrowing. Moderate to severe effacement of both lateral recesses however symmetric in nature. Mild right and moderate left foraminal stenoses L4-L5: Broad-based posterior disc bulge with superimposed right paracentral disc protrusion image 8 series 3, suggesting impingement of the right descending L5 nerve root. Mild central canal narrowing. Severe effacement of the right lateral recess. Mild partial effacement of the left lateral recess. L5-S1: Broad-based posterior disc bulge bilateral facet arthropathy. Superimposed left paracentral disc protrusion image 11 series 3. Mild secondary narrowing. Severe effacement of the left lateral recess. Minimal partial effacement of the right lateral recess. Mild bilateral foraminal narrowing. IMPRESSION: Multilevel spondylosis and facet arthropathy. Prominent right paracentral disc protrusion at L4-L5, with severe effacement of the right lateral recess as above. Left-sided L5-S1 paracentral disc protrusion resulting in severe left sided subarticular narrowing. Moderate to severe bilateral subarticular narrowing at the L3-L4 level. Moderate left L3-L4 foraminal stenosis. Moderate L2-L3 canal narrowing. Dictated by: Romel Carcamo M.D. on 07/24/2018 at 8:46 Approved by: Romel Carcamo M.D. on 07/24/2018 at 8:56
--- NOTE | 2018-07-23 16:35 | DI.RAD.S_ITS ---
PROCEDURE: XR LUMBAR SPINE 2-3V INDICATIONS: pain TECHNIQUE: 3 views of the lumbar spine were acquired. COMPARISON: [facility], MR, MR LUMBAR SPINE WO CON, 07/23/2018, 17:00. FINDINGS: Bones: 5 [id number] vertebrae are present. There is normal bony alignment. No vertebral body compression fractures. No suspicious bony lesions. There is degenerative disc disease, severe at L2-L3, L3-L4, L4-L5 and L5-S1. Moderate degenerative disc disease at L1-L2. There is severe facet arthropathy at L4-L5 and L5-S1. Soft tissues: Overlying bowel gas pattern is normal. No suspicious soft tissue calcifications. IMPRESSION: Severe degenerative disc and facet disease in lumbar spine. Dictated by: Vel Vasquez M.D. on 07/23/2018 at 17:48 Approved by: Vel Vasquez M.D. on 07/23/2018 at 17:50
== END ==
PROVIDERS: Family Provider Family Medicine; PCP Family Medicine; Visit Provider Family Medicine
DX: M54.5 Low back pain (principal); M47.26 Other spondylosis with radiculopathy, lumbar region; M47.27 Other spondylosis with radiculopathy, lumbosacral region; M51.16 Intervertebral disc disorders with radiculopathy, lumbar region; M51.17 Intervertebral disc disorders with radiculopathy, lumbosacral region; M48.061 Spinal stenosis, lumbar region without neurogenic claudication; M48.07 Spinal stenosis, lumbosacral region; M25.532 Pain in left wrist; M19.032 Primary osteoarthritis, left wrist; M25.552 Pain in left hip; M25.562 Pain in left knee; M17.12 Unilateral primary osteoarthritis, left knee; M25.462 Effusion, left knee
CPT/HCPCS: 72100; 72148; 73110; 73522; 73562

== ENCOUNTER → 2018-09-28 17:12 | Outpatient (CLI) | payer OTHER, SELFPAY ==
[2018-04-05 13:41] VITALS: BMI 31.4
--- NOTE | 2018-09-28 | DI.RAD.S_ITS ---
PROCEDURE: XR KNEE RT 3V INDICATIONS: RIGHT KNEE PAIN TECHNIQUE: 3 views of the knee were acquired. COMPARISON: [facility], CR, XR KNEE LT 3V, 07/23/2018, 16:33. FINDINGS: Bones: No fractures or dislocations. No suspicious bony lesions. Expected postoperative alignment of right knee arthroplasty. Hardware appears intact. No evidence of loosening. Soft tissues: No joint effusion. No suspicious soft tissue calcifications. IMPRESSION: Expected postoperative alignment of right knee arthroplasty Dictated by: Romel Carcamo M.D. on 09/29/2018 at 10:43 Approved by: Romel Carcamo M.D. on 09/29/2018 at 10:44
== END ==
PROVIDERS: PCP Family Medicine; Visit Provider Physical Medicine & Rehabilitation
DX: M25.561 Pain in right knee (principal); Z96.651 Presence of right artificial knee joint
CPT/HCPCS: 73562

== ENCOUNTER 2018-10-06 14:36 | Outpatient (CLI) | payer OTHER, SELFPAY ==
[2018-04-05 13:41] VITALS: BMI 31.4
--- NOTE | 2018-10-06 14:37 | DI.RAD.S_ITS ---
PROCEDURE: PAIN L INTERLAMINAR/CAUDAL INJ INDICATIONS: SPONDYLOSIS FINDINGS: Fluoroscopic spot filming was performed to verify placement of spinal needles at the right L4-5 intervertebral neural foramen area for perineural epidural steroid injection, as labeled on the films. Appropriate location(s) of the needle tip(s) was confirmed by injection of iodinated contrast. IMPRESSION: Successful needle tip localization on the right for perineural epidural steroid injection targeting the right L4 nerve root at the right L4-5 neural foramen. Dictated by: Pedro Jalloh M.D. on 10/06/2018 at 16:33 Approved by: Pedro Jalloh M.D. on 10/06/2018 at 16:34
[2018-10-06 15:03] VITALS: BP 154/90; PULSE 76; RESP 18; O2SAT 97
[2018-10-06 15:20] VITALS: BP 136/68; PULSE 77; RESP 16; O2SAT 97
[2018-10-06] MEDS: fentaNYL 100 MCG/2 ML INJ 50 MCG IV (15:21)
[2018-10-06] MEDS: MIDAZOLAM 5 MG/5 ML VIAL IV (15:21)
[2018-10-06 15:24] VITALS: BP 121/51; PULSE 77; RESP 14; O2SAT 94
[2018-10-06] MEDS: BETAMETHASONE 30 MG/5 ML MDV 6 MG INJ (15:27)
[2018-10-06] MEDS: IOPAMIDOL 15 ML VIAL 3 ML INJ (15:27)
[2018-10-06] MEDS: DEXAMETHASONE 10 MG/ML VIAL 20 MG INJ (15:27)
[2018-10-06] MEDS: BUPIVACAINE 0.25% (PF) VIAL 2 ML INJ (15:27)
--- NOTE | 2018-10-06 15:29 | PC.NURSE ---
ASSISTING PT OFF TABLE AND TRANSPORTING TO POST PROC AREA IN STABLE CONDITION
[2018-10-06 15:40] VITALS: BP 128/93; PULSE 72; RESP 16; O2SAT 95
[2018-10-06 15:45] VITALS: BP 138/94; PULSE 75; RESP 16; O2SAT 97
--- NOTE | 2018-10-06 15:45 | P.PCN_ITS ---
Procedures Date/Time Date of procedure: 10/06/18 Time of procedure: 15:43 General Procedure description: PREOP DIAGNOSIS 1. FORMAINAL STENOSIS WITH LE SYMPTOMS POST OP DIAGNOSIS 1. FORMAINAL STENOSIS WITH LE SYMPTOMS PROCEDURES 1. FLUOROSCOPICALLY GUIDED CONTRAST CONTROLLED TRANSFORAMINAL EPIDURAL STEROID INJECTION - RIGHT L4/5 TFESI PHYSICIAN: Truman Gardner DO INDICATIONS: Santa is referred by for treatment of Foraminal Stenosis with Right LE Symptoms FINDINGS Foraminal Nerve Root Compression secondary to disc disease and facet hypertrophy DESCRIPTION OF PROCEDURE: Following denial of allergy and review of potential side effects and complications, including, but not necessarily limited to, infection, allergic reaction, local tissue breakdown, stroke, temporary or permanent nerve injury, paralysis, and possible , the patient indicated that the patient understood and agreed to proceed. An informed consent document was signed by the patient, witnessed by a nurse, and placed in the patient's chart. Additionally, other treatment options including medications, modalities, and physical therapy were reviewed with the patient. After review of previous anaesthesic history and IV conscious sedation the patient was deemed safe to proceed with todays procedure with IV conscious sedation as ASA class II designation. Safety time-out was performed to confirm patient ID, procedure to be performed and site of procedure. IV sedation was accomplished with a combination of 3mg of Versed and 50mcg of Fentanyl were administered by the RN after DO order, titrated to patient comfort during the course of the procedure while the patient remained responsive to all verbal commands In the prone position following sterile prep and drape of the lumbar region, the Right L4/5 posterior neuroforamen was identified fluoroscopically. The skin was anesthetized via a 25-gauge 1.5-inch needle with 1% lidocaine solution. At this point, a 25-gauge 3.5-inch spinal needle was atraumatically introduced and advanced under fluoroscopic guidance through the posterior Right L4/5 neuroforamen to approximately the anterior aspect of the canal. Depth was confirmed on lateral view. Following negative aspiration, injection of approximately 1.5 cc of Isovue 200 under live fluoroscopy in the AP view confirmed excellent flow along the nerve root, into the epidural space without vascular or intrathecal uptake observed Radiological data, including multiple fluoroscopic views of the lumbosacral spine, reveal a spinal needle at the right L4/5 posterior neuroforamen. Subsequent views show flow of contrast material flowing superiorly and inferiorly along the nerve root confirming epidural flow. Subsequently, a test dose of 1.5 cc of 1% lidocaine solution was administered and patient was observed for two minutes for signs or symptoms of complications, including abdominal pain, shortness of breath, bilateral upper or lower extremity weakness, nausea and vomiting, prior to steroid injection. At this point, a total of 3cc or 20mg of dexamethasone and 6mg of betamethasone was injected without incident. The procedure tolerated the procedure well without signs or symptoms of complications prior to transfer to the recovery area continued monitoring without incident.The patient was then transferred to the recovery area where they were observed for an appropriate time after the injection. The patient reported a VAS score of 7 prior to the procedure and a post- procedure VAS of 0. Total Fluoroscopy Time: 20.9 seconds Total Conscious Sedation Time: 24min POST OP INSTRUCTIONS The patient was provided a Pain Log to continue to record their response to the target-specific procedure prior to follow-up visit with their referring physician. Additionally, specific post-injection care instructions and a contact number to our office were provided if concerns arise regarding possible complications associated with the procedure are suspected. Truman Gardner, Complications: none
--- NOTE | 2018-10-06 15:47 | PC.NURSE ---
Pt returned via wheelchair awake and alert but numb from her buttocks down to her feet. Pt remaining in wheelchair for recovery. Resumed monitoring from Karly DAIGLE.
[2018-10-06 15:50] VITALS: BP 147/104; PULSE 73; RESP 16; O2SAT 95
--- NOTE | 2018-10-06 16:03 | PC.NURSE ---
Pt reports starting to feel her feet coming back and not being so numb, not ready to road test her just yet.
== END 2018-10-06 16:44 | disposition home or self-care (01) ==
PROVIDERS: PCP Family Medicine; Visit Provider Physical Medicine & Rehabilitation
DX: M48.061 Spinal stenosis, lumbar region without neurogenic claudication (principal); M51.16 Intervertebral disc disorders with radiculopathy, lumbar region
CPT/HCPCS: 62323; 99152; J0702; J1100; J2250; J3010

== ENCOUNTER → 2019-03-30 17:34 | Outpatient (CLI) | payer OTHER, SELFPAY ==
[2018-04-05 13:41] VITALS: BMI 31.4
--- NOTE | 2019-03-30 | DI.MG.S_ITS ---
UNILATERAL RIGHT DIGITAL SCREENING MAMMOGRAM 3D/2D WITH CAD: 03/30/2019 CLINICAL: Routine screening. Personal history of left breast cancer. Comparison is made to exams dated: 03/18/2018 mammogram, 02/20/2017 mammogram, and 02/12/2016 mammogram - [facility]. There are scattered fibroglandular elements in right breast. Current study was also evaluated with a Computer Aided Detection (CAD) system. There are benign post operative findings in the right breast. No significant masses, calcifications, or other findings are seen in the breast. There has been no significant interval change. IMPRESSION: There is no mammographic evidence of malignancy. A 1 year screening mammogram is recommended. This exam was interpreted at Station ID: [id number]. NOTE: For mammograms, a report in lay terms will be sent to the patient. Approximately 15% of breast malignancies will not be visualized mammographically. In the management of a palpable breast mass, a negative mammogram must not discourage biopsy of a clinically suspicious lesion. Electronically Signed By: Danielito forbes/yony:03/30/2019 19:03:22 copy to: Belen Muniz letter sent: Normal Exam ACR BI-RADS Category 2: Benign Finding(s) 3342F
== END ==
PROVIDERS: Family Provider Family Medicine; PCP Family Medicine; Visit Provider Internal Medicine Hematology & Oncology
DX: Z12.31 Encounter for screening mammogram for malignant neoplasm of breast (principal); Z85.3 Personal history of malignant neoplasm of breast
CPT/HCPCS: 77063; 77067

== ENCOUNTER → 2019-06-24 14:57 | Outpatient (CLI) | payer MEDICARE, SELFPAY ==
[2018-04-05 13:41] VITALS: BMI 31.4
[2019-06-24 15:40] LABS: Add Manual Diff / Slide Review NO; Basophils Absolute Auto 100 /uL (0-100); Basophils Percent Auto 1.1 % (0-2); Eosinophils Absolute Auto 100 /uL (0-450); Eosinophils Percent Auto 1.9 % (2-4); Hematocrit 44.1 % (36-46); Hemoglobin 15.3 g/dL (12.0-16.0); Lymphocytes Absolute Auto 1700 /uL (1100-4500); Lymphocytes Percent Auto 25.4 % (25-40); Mean Corpuscular HGB Conc 34.7 % (30-36); Mean Corpuscular Hemoglobin 35.2 PG (26-34); Mean Corpuscular Volume 101.4 fL (80-100); Monocytes Absolute Auto 700 /uL (0-900); Monocytes Percent Auto 10.3 % (3-14); Neutrophils Absolute Auto 4200 /uL (1500-7000); Neutrophils Percent Auto 61.3 % (50-75); Platelet Count 279 X10^3/uL (150-400); Red Blood Cell Count 4.35 X10^6/uL (4.0-5.2); Red Cell Distribution Width 12.8 % (11.6-14.8); White Blood Cell Count 6.8 X10^3/uL (4.5-11.0)
[2019-06-24 16:07] LABS: Alanine Aminotransferase 18 IU/L (<35); Albumin 4.6 g/dL (3.5-5.0); Albumin Globulin Ratio 1.4 (1.0-2.8); Alkaline Phosphatase 140 U/L (38-126); Aspartate Aminotransferase 28 IU/L (14-36); BUN Creatinine Ratio 18.9 (6-22); Bilirubin Total 1.1 mg/dL (0.2-1.3); Blood Urea Nitrogen 17 mg/dL (7-17); Calcium 10.4 mg/dL (8.4-10.2); Carbon Dioxide 29 mmol/L (22-32); Chloride 99 mmol/L (98-107); Cholesterol 267 mg/dL (140-199); Estimated Glomerular Filt Rate > 60.0 mL/min (>60); Globulin 3.2 g/dL (1.7-4.1); Glucose 103 mg/dL (80-110); HDL Cholesterol 56 mg/dL (40-60); HEMOLYSIS < 15 (0-50); LDL Cholesterol Calculated 172 mg/dL (<100); Potassium 4.5 mmol/L (3.4-5.1); Sodium 139 mmol/L (137-145); Total Protein 7.8 g/dL (6.3-8.2); Triglycerides 196 mg/dL (35-150)
[2019-06-24 17:06] LABS: Thyroid Stimulating Hormone 0.93 uIU/mL (0.47-4.68)
[2019-06-26 15:36] LABS: Cancer Antigen 27.29 62 U/mL (< 38)
== END ==
PROVIDERS: Family Provider Family Medicine; PCP Family Medicine; Referring Provider Family Medicine; Visit Provider Family Medicine
DX: D72.829 Elevated white blood cell count, unspecified (principal); E78.2 Mixed hyperlipidemia; I10 Essential (primary) hypertension
CPT/HCPCS: 36415; 80053; 80061; 84443; 85025; 86300

== ENCOUNTER → 2020-01-20 09:03 | Outpatient (CLI) | payer MEDICARE, SELFPAY ==
[2019-12-27 16:02] VITALS: BMI 31.4
[2020-01-25 12:16] LABS: COVID19 Sendout Not Detected (Not Detect)
== END ==
PROVIDERS: Family Provider Family Medicine; PCP Family Medicine; Visit Provider Physician Assistant
DX: Z11.59 Encounter for screening for other viral diseases (principal)
CPT/HCPCS: 87635

== ENCOUNTER → 2020-03-31 12:42 | Outpatient (CLI) | payer MEDICARE, SELFPAY ==
[2019-12-27 16:02] VITALS: BMI 31.4
--- NOTE | 2020-03-31 12:43 | DI.US.S_ITS ---
LIMITED ULTRASOUND OF RIGHT BREAST: 03/31/2020 CLINICAL: Palpable right breast lump. Comparison is made to exams dated: 03/31/2020 mammogram, 03/30/2019 mammogram, 03/18/2018 mammogram, 02/20/2017 mammogram, 05/30/2016 breast MRI, and 03/04/2016 breast MRI - [facility]. Real-time ultrasound of the right breast lower outer quadrant was performed. Ball scale images of the real-time examination were reviewed. No significant abnormalities were seen sonographically in the right breast. Specifically, no finding to correspond to the patient's resolved 7:00 palpable abnormality, or the resolved lateral asymmetry incidentally seen on mammogram. IMPRESSION: NEGATIVE There is no sonographic evidence of malignancy. Return to annual mammogram screening schedule is recommended. Findings and recommendations were conveyed to the patient at time of exam. This exam was interpreted at Station ID: [id number]. Electronically Signed By: Brissa waters/:03/31/2020 14:56:29 copy to: Belen Muniz letter sent: Normal Exam Ultrasound BI-RADS: 1 Negative
--- NOTE | 2020-03-31 12:43 | DI.MG.S_ITS ---
UNILATERAL RIGHT DIGITAL DIAGNOSTIC MAMMOGRAM 3D/2D POST MASTECTOMY: 03/31/2020 CLINICAL: Right breast lump. Comparison is made to exams dated: 03/30/2019 mammogram, 03/18/2018 mammogram, and 02/20/2017 mammogram - [facility]. There are scattered fibroglandular elements in right breast. No other significant masses or calcifications are seen in the breast. Specifically, no finding to correspond to the patient's palpable abnormality. There is an incidental more prominent asymmetry in the right breast posterior depth lateral region seen on the craniocaudal view only. This is partially resolves with spot compression, appearing similar to multiple prior studies. IMPRESSION: INCOMPLETE: NEEDS ADDITIONAL IMAGING EVALUATION There is no abnormality seen in the right breast to correspond with the palpable abnormality and pain at 7 o'clock, however, ultrasound is recommended. The asymmetry in the right breast is probably overlapping fibroglandular tissue but remains indeterminate. An ultrasound is recommended. Ultrasound was performed immediately following this exam. This exam was interpreted at Station ID: [id number]. NOTE: For mammograms, a report in lay terms will be sent to the patient. Approximately 15% of breast malignancies will not be visualized mammographically. In the management of a palpable breast mass, a negative mammogram must not discourage biopsy of a clinically suspicious lesion. Electronically Signed By: Brissa waters/:03/31/2020 13:27:20 copy to: Belen ANTON BI-RADS Category 0: Incomplete [id number]
== END ==
PROVIDERS: Family Provider Family Medicine; PCP Family Medicine; Referring Provider Internal Medicine; Visit Provider Internal Medicine
DX: N63.14 Unspecified lump in the right breast, lower inner quadrant (principal)
CPT/HCPCS: 76642; 77065; G0279

== ENCOUNTER → 2020-04-03 15:18 | Outpatient (CLI) | payer MEDICARE, SELFPAY ==
[2019-12-27 16:02] VITALS: BMI 31.4
[2020-04-03 15:44] LABS: COVID19 -Nasal RAPID Negative (Negative)
== END ==
PROVIDERS: Family Provider Family Medicine; PCP Family Medicine; Visit Provider Family Medicine
DX: Z11.59 Encounter for screening for other viral diseases (principal); R05 Cough
CPT/HCPCS: 87635

== ENCOUNTER 2020-07-20 16:06 | Emergency (ER) | payer MEDICARE, SELFPAY ==
[2019-12-27 16:02] VITALS: BMI 31.4
[2020-07-20 16:10] VITALS: BP 183/113; PULSE 117; RESP 14; TEMP 37; O2SAT 97; BMI 30.1
--- NOTE | 2020-07-20 16:16 | DI.RAD.S_ITS ---
PROCEDURE: XR FINGER LT MIN 2V INDICATIONS: crush injury TECHNIQUE: AP hand, 2 views of the 1st finger(s) acquired. COMPARISON: None. FINDINGS: Bones: Acute comminuted and slightly displaced fracture involving 1st distal phalangeal tuft is seen. Osteoarthritic changes are noted in 1st MCP joint and interphalangeal joint. No suspicious bony lesions. Soft tissues: No suspicious soft tissue calcifications. Soft tissue swelling surrounding distal portion of left thumb is seen. IMPRESSION: Acute comminuted and displaced 1st distal phalangeal tuft fracture. Dictated by: Russell Nair M.D. on 07/20/2020 at 16:40 Approved by: Russell Nair M.D. on 07/20/2020 at 16:41
[2020-07-20] MEDS: TET,DIPH,PERTUSS(ACELL),VAC/PF 0.5 ML SYRINGE IM (16:29)
[2020-07-20] MEDS: HYDROCODONE/ACET 5/325 TABLET 1 TAB PO (16:29)
--- NOTE | 2020-07-20 16:47 | ED_ITS ---
HPI - Extremity Injury (Upper) General Chief Complaint: Extremity Injury, Upper Stated Complaint: lt thumb smashed with sledge hammer Time Seen by Provider: 07/20/20 16:15 Source: patient Mode of arrival: Ambulatory Limitations: no limitations History of Present Illness HPI narrative: 70-year-old female nonsmoker with history of breast cancer presents with a chief complaint of a crush injury to her left thumb just prior to arrival. She was using a sledge and working on a project at home when she accidentally hit the tip of her thumb. She has some bleeding from a small laceration on the tip of her thumb and pain with range of motion. She does not know when her last tetanus shot was. She denies other injury. She is not dizzy nor weak or lightheaded. She denies any fever or chills. complaint: injury to: left Onset (ago): minute(s) Other injuries: none Handedness: right Place: home Severity: mild Relieving factors: rest Exacerbating factors: movement of extremity Context: direct blow Associated symptoms: denies other symptoms Treatments prior to arrival: bandage Related Data Home Medications Medication Instructions Recorded Confirmed cholecalciferol (vitamin D3) 5,000 mg PO QDAY #0 03/08/16 04/03/20 [Vitamin D3] calcium carbonate 430 mg calcium 1,000 mg PO DAILY tab 08/26/18 04/03/20 (1,000 mg) chewable tablet calcium polycarbophil [Fiber-Tabs] 625 mg DAILY 03/01/20 04/03/20 multivitamin 1 cap PO DAILY 03/01/20 04/03/20 Previous Rx's Medication Instructions Recorded cetirizine 10 mg tablet 10 mg PO DAILY #90 tab 06/12/18 clobetasol 0.05 % topical ointment 1 applictn TOP BID #45 gram 06/24/19 diclofenac sodium 1 % topical gel 2 gram TOP ONCE PRN #100 gram 06/24/19 ondansetron 4 mg disintegrating 4 mg SUBLINGUAL Q6HP PRN #60 odt 11/03/19 tablet triamcinolone acetonide 0.5 % 1 applictn TOPICAL PRN PRN #15 02/21/20 topical cream gram omeprazole 20 mg capsule,delayed 20 mg PO DAILY #90 cap 05/22/20 release celecoxib 200 mg capsule 200 mg PO DAILY #90 cap 07/20/20 cephalexin 500 mg PO QID 7 Days #28 cap 07/20/20 fluoxetine 40 mg capsule 40 mg PO QDAY #90 tab 07/20/20 hydrocodone-acetaminophen 1 tab PO Q4-6H PRN #10 tab 07/20/20 letrozole 2.5 mg tablet 2.5 mg PO DAILY #90 tab 07/20/20 losartan 25 mg tablet 25 mg PO DAILY #90 tab 07/20/20 metoprolol succinate 100 mg 100 mg PO QDAY #90 tab 07/20/20 tablet,extended release 24 hr venlafaxine 37.5 mg See Rx Instructions .ROUTE 07/20/20 capsule,extended release 24 hr .COMPLEX #180 cap Allergies Allergy/AdvReac Type Severity Reaction Status Date / Time No Known Drug Allergies Allergy Verified 07/20/20 16:15 Review of Systems Constitutional Constitutional: Denies chills, Denies fatigue, Denies fever(s), Denies frequent falls, Denies lethargy and Denies weakness Eyes Eyes: Denies change in vision, Denies eye discharge, Denies irritation and Denies loss of vision ENT Ears, Nose, Mouth, and Throat: Denies change in voice, Denies dizziness, Denies neck pain, Denies sore throat and Denies throat swelling Cardiovascular Cardiovascular: Denies chest pain, Denies irregular heart rhythm, Denies lightheadedness, Denies palpitations, Denies dyspnea, Denies dyspnea on exertion and Denies orthopnea Respiratory Respiratory: Denies cough, Denies dyspnea, Denies dyspnea on exertion and Denies wheezing Gastrointestinal Gastrointestinal: Denies abdominal pain, Denies change in bowel habits, Denies diarrhea, Denies nausea and Denies vomiting Musculoskeletal Musculoskeletal: Reports limited range of motion, Denies neck pain and Denies numbness Integumentary/Breasts Skin/Breast: Denies pruritus, Denies erythema, Denies rash and Denies wounds Neurologic Neurologic: Denies behavioral changes, Denies confusion, Denies dizziness, Denies frequent falls, Denies loss of vision, Denies numbness and Denies weakness Psychiatric Psychiatric: Denies anxiety, Denies behavioral changes, Denies confusion, Denies depression, Denies homicidal ideation and Denies suicidal ideation Endocrine Endocrine: Denies fatigue, Denies flushing and Denies palpitations Hematologic/Lymphatic Hematologic/Lymphatic: Denies easy bruising Allergic/Immunologic Allergic/Immunologic: Denies urticaria, Denies throat swelling and Denies wheezing Patient History Medical History Anemia (2016) Biliary colic Breast cancer (2015) Cardiomyopathy due to chemotherapy Chicken pox (1956) Cholelithiasis Chronic back pain (1967) Depression (1999) Eczema (2007) Foot pain (2016) Hemorrhoids (1994) History of antineoplastic chemotherapy Hypertension (1989) Lumbar spine pain (1967) Neuropathy Shoulder pain (2016) Sleep apnea (2006) URI (upper respiratory infection) Surgical History Anesthesia History of knee replacement (10/2014) History of left mastectomy History of lumpectomy (2015) Status post left breast reconstruction Status post partial mastectomy (06/2016) Family History Father Mental health problem Suicide Loud snoring Depression Alcohol abuse Mother Hypertension High cholesterol Stroke Diabetes mellitus Loud snoring Restless leg Obesity Heart disease Depression Grandmother No problems noted. Social History household members: spouse Smoking Status: Never smoker Smoking Status: Never smoker alcohol intake frequency: 0-2 drinks per day Substance Use Type: does not use Exam Narrative Exam Narrative: GEN: AOx3 and in mild distress EYES: Pupils are equal, round, and reactive to light and accommodation. Extraoccular muscles are intact bilaterally. There is no subconjunctival hemorrhage or exudate. CHEST: Lungs are clear to auscultation bilaterally and free of wheezes, rales, or rhonchi. Heart rate is regular rhythm, there are no murmurs, clicks, rubs, or gallops. There is no chest wall tenderness. ABD: Abdomen is soft and nontender. There is no guarding or rebound. Bowel sounds are normal in all 4 quadrants. There is no mass or organomegaly. EXT: 0.25 laceration lateral to thumbnail with minimal bleeding. Very minimal subungual hematoma. Swelling at the interphalangeal joint with full but painful range of motion. No numbness, tingling or weakness. Otherwise Full painless ROM of all extremities with no loss of sensation or strength. SKIN: Warm, pink, and dry. No erythema or rash Initial Vital Signs Initial Vital Signs: Vital Signs Temperature 98.6 F 07/20/20 16:10 Pulse Rate 117 H 07/20/20 16:10 Respiratory Rate 14 07/20/20 16:10 Blood Pressure 183/113 H 07/20/20 16:10 Pulse Oximetry 97 07/20/20 16:10 Procedures Laceration Repair Laceration 1: Size (cm): 0.25 Description: linear Depth: simple, single layer Pre-repair: wound explored Size (cm): 5-0 Number of sutures: 1 Technique: simple, interrupted Nerve Block Nerve Block 1: Time out performed: Yes Local Anesthetic: lidocaine 1% and with bicarb Amount of anesthesia used (mL): 3 Side: left Nerve Blocks: digital Procedure Successful: Yes Patient Tolerated Procedure: Well Complications: none Course Orders Ordered: ED Orders 07/20/20 16:16 XR finger LT min 2V Stat Discontinued Medications Hydrocodone Bitart/Acetaminophen (Hydrocodone/Acet 5/325 Tablet) 1 tab PO NOW ONE Stop: 07/20/20 16:17 Last Admin: 07/20/20 16:29 Dose: 1 tab Documented by: DOMENICA Diphtheria/Tetanus/Acell Pertussis (Tet,Diph,Pertuss(Acell),Vac/Pf 0.5 Ml Syringe) 0.5 ml IM .ONCE ONE Stop: 07/20/20 16:17 Last Admin: 07/20/20 16:29 Dose: 0.5 ml Documented by: DOMENICA Lidocaine/Sodium Bicarbonate (Lido 1%/Sod Bicarb 8.4% (10ml) 10 Ml Syringe) 10 ml INJ NOW ONE Stop: 07/20/20 17:04 Last Admin: 07/20/20 17:11 Dose: 10 ml Documented by: DOMENICA Vital Signs Vital signs: Vital Signs - 8 hr 07/20/20 16:10 Temperature 98.6 F Pulse Rate 117 H Respiratory Rate 14 Blood Pressure 183/113 H Pulse Oximetry 97 MDM - Extremity Injury (Upper) Imaging Data Extremity x-ray #1: Radiologist's Impression: Chart Viewer Diagnostics DATE TYPE STATUS REF RANGE/AUTHOR Hx Today 16:16 Russell Nair 03/31/20 12:43 Brissa Rosales 03/31/20 12:43 Brissa Rosales 03/30/19 00:00 Call,Danielito 10/06/18 14:37 Pedro Jalloh 09/28/18 00:00 Romel Carcamo 07/23/18 16:35 Christina,Ravinder 07/23/18 16:35 Christina,Rahuleyu 07/23/18 16:35 Romel Carcamo 07/23/18 16:35 Christina,Fieyu 07/23/18 16:35 Christina,Fieyu 05/14/18 12:37 04/05/18 02:33 Pemberton,Chen 04/05/18 02:32 Pemberton,Chen 03/18/18 11:14 Enoc Murguia 02/23/18 14:45 Belen Buitrago 11/07/17 16:33 Brandt,Elliot 11/07/17 16:33 Brandt,Elliot 10/09/17 00:00 Echocardiogram 10/04/17 11:03 Patterson,Patrick 10/04/17 09:25 Patterson,Patrick 03/31/17 10:04 03/23/17 19:02 03/23/17 17:22 02/27/16 12:38 Santa Sears 70, F0 1950 [facility] 160.02cm 77.111kg BMI: 30.1kg/m? Extremity Injury, Upper Search Chart No Data to Display Total Pending Discharge ONSET 03/14/16 02/16/16 11/07/16 11/07/16 Today 16:10 Santa Sears 70 F [address] [id number] ReportSigned Patient: Santa Sears AMR#: [id number]: 1950cct:[id number]/Sex: 70 / FDate of Service: 07/20/20Loc: EDAccession Number: [id number] Procedure: XR finger LT min 2V Ordering Provider: Yunior Tompkins D.O. PROCEDURE: XR FINGER LT MIN 2V INDICATIONS: crush injury TECHNIQUE: AP hand, 2 views of the 1st finger(s) acquired. COMPARISON: None. FINDINGS: Bones: Acute comminuted and slightly displaced fracture involving 1st distal phalangeal tuft is seen. Osteoarthritic changes are noted in 1st MCP joint and interphalangeal joint. No suspicious bony lesions. Soft tissues: No suspicious soft tissue calcifications. Soft tissue swelling surrounding distal portion of left thumb is seen. IMPRESSION: Acute comminuted and displaced 1st distal phalangeal tuft fracture. Dictated by: Russell Nair M.D. on 07/20/2020 at 16:40 Approved by: Russell Nair M.D. on 07/20/2020 at 16:41 Discharge Plan Departure Patient Disposition: Home Clinical Impression: Crush injury, Upper respiratory tract infection Fracture of thumb Qualifiers: Encounter type: initial encounter Fracture type: open Phalanx: distal Fracture alignment: displaced Laterality: left Qualified Code(s): S62.522B - Displaced fracture of distal phalanx of left thumb, initial encounter for open fracture Instructions: DI for Open Fracture Activity Restrictions/Additional Instructions: *You have been diagnosed with [crush injury of thumb resulting in fracture of tip of thumb with small laceration] *What to do: *Take medications as directed *Follow up with your primary care provider in 2-3 days, call for an appointment. Let them know you were seen in the Emergency Department and that we ask that you be seen in follow up *Return to ER if you should have any new, worsening or concerning symptoms, such as [increasing pain, numbness, tingling, drainage, redness or other bothersome symptoms] Prescriptions: New cephalexin 500 mg capsule 500 mg PO QID 7 Days Qty: 28 RF: 0 hydrocodone-acetaminophen 5-325 mg tablet 1 tab PO Q4-6H PRN (Reason: pain) Qty: 10 RF: 0 No Action cholecalciferol (vitamin D3) [Vitamin D3] 1,000 UNIT tablet 5,000 mg PO QDAY Qty: 0 RF: 0 ondansetron 4 mg tablet,disintegrating 4 mg Sublingual Q6HP PRN (Reason: nausea and vomiting) Qty: 60 RF: 1 triamcinolone acetonide 0.5 % cream 1 applictn Topical PRN PRN (Reason: eczema) Qty: 15 RF: 2 omeprazole 20 mg capsule,delayed release(DR/EC) 20 mg PO DAILY Qty: 90 RF: 0 metoprolol succinate 100 mg tablet extended release 24 hr 100 mg PO QDAY Qty: 90 RF: 3 losartan 25 mg tablet 25 mg PO DAILY Qty: 90 RF: 3 letrozole 2.5 mg tablet 2.5 mg PO DAILY Qty: 90 RF: 3 fluoxetine 40 mg capsule 40 mg PO QDAY Qty: 90 RF: 3 celecoxib [Celebrex] 200 mg capsule 200 mg PO DAILY Qty: 90 RF: 2 venlafaxine 37.5 mg capsule,extended release 24hr See Rx Instructions .ROUTE .COMPLEX Qty: 180 RF: 0 calcium carbonate 430 mg calcium (1,000 mg) tablet,chewable 1,000 mg PO DAILY RF: 0 cetirizine [Zyrtec] 10 mg tablet 10 mg PO DAILY Qty: 90 RF: 3 diclofenac sodium 1 % gel 2 gram TOP ONCE PRN (Reason: pain (scale score 1-3)) Qty: 100 RF: 5 clobetasol 0.05 % ointment 1 applictn TOP BID Qty: 45 RF: 5 calcium polycarbophil [Fiber-Tabs] 625 mg Tablet 625 mg DAILY RF: 0 multivitamin Capsule 1 cap PO DAILY RF: 0 Referrals: Arsh Knight MD [Physician] -
[2020-07-20] MEDS: LIDO 1%/SOD BICARB 8.4% (10ML) 10 ML SYRINGE INJ (17:11)
== END 2020-07-20 18:08 | disposition home or self-care (01) ==
PROVIDERS: Emergency Provider Emergency Medicine; Family Provider Family Medicine
DX: S62.522B Displaced fracture of distal phalanx of left thumb, initial encounter for open fracture (principal); J06.9 Acute upper respiratory infection, unspecified; Z23 Encounter for immunization; W27.8XXA Contact with other nonpowered hand tool, initial encounter
CPT/HCPCS: 12001; 29130; 64450; 73140; 90471; 99281; 99283; 90715

== ENCOUNTER → 2020-08-11 10:07 | Outpatient (CLI) | payer MEDICARE, SELFPAY ==
[2019-12-27 16:02] VITALS: BMI 31.4
[2020-08-11] MEDS: COVID-19 VACC #1, MRNA(MOD) 100 MCG/0.5 ML VIAL IM (10:12)
== END ==
PROVIDERS: Family Provider Family Medicine; Visit Provider Internal Medicine
DX: Z23 Encounter for immunization (principal)
CPT/HCPCS: 0011A; 91301

== ENCOUNTER → 2020-08-12 11:09 | Outpatient (CLI) | payer MEDICARE, SELFPAY ==
[2019-12-27 16:02] VITALS: BMI 31.4
[2020-08-12 11:57] LABS: Add Manual Diff / Slide Review NO; Basophils Absolute Auto 0 /uL (0-100); Basophils Percent Auto 0.5 % (0-2); Eosinophils Absolute Auto 100 /uL (0-450); Eosinophils Percent Auto 1.8 % (2-4); Hematocrit 40.5 % (36-46); Lymphocytes Absolute Auto 1400 /uL (1100-4500); Lymphocytes Percent Auto 22.5 % (25-40); Mean Corpuscular HGB Conc 34.6 % (30-36); Mean Corpuscular Volume 98.3 fL (80-100); Monocytes Absolute Auto 500 /uL (0-900); Monocytes Percent Auto 8.4 % (3-14); Neutrophils Absolute Auto 4100 /uL (1500-7000); Neutrophils Percent Auto 66.8 % (50-75); Platelet Count 205 X10^3/uL (150-400); Red Blood Cell Count 4.12 X10^6/uL (4.0-5.2); Red Cell Distribution Width 12.5 % (11.6-14.8); White Blood Cell Count 6.2 X10^3/uL (4.5-11.0)
[2020-08-12 12:26] LABS: Alanine Aminotransferase 17 IU/L (<35); Albumin Globulin Ratio 1.3 (1.0-2.8); Alkaline Phosphatase 119 U/L (38-126); Aspartate Aminotransferase 26 IU/L (14-36); BUN Creatinine Ratio 18.4 (6-22); Bilirubin Total 1.2 mg/dL (0.2-1.3); Blood Urea Nitrogen 14 mg/dL (7-17); Calcium 9.6 mg/dL (8.4-10.2); Carbon Dioxide 28 mmol/L (22-32); Chloride 102 mmol/L (98-107); Cholesterol 238 mg/dL (140-199); Estimated Glomerular Filt Rate > 60.0 mL/min (>60); Glucose 112 mg/dL (80-110); HDL Cholesterol 56 mg/dL (40-60); HEMOLYSIS < 15 (0-50); LDL Cholesterol Calculated 140 mg/dL (<100); Potassium 3.9 mmol/L (3.4-5.1); Sodium 137 mmol/L (137-145); Triglycerides 211 mg/dL (35-150)
[2020-08-12 12:52] LABS: Creatinine Urine Random 76.1 mg/dL
[2020-08-12 12:57] LABS: Microalbumi Creatinin Ratio Ur 69.6 ug/mg CR (<30); Microalbumin Urine Random 5.3 mg/dL (0-1.6)
== END ==
PROVIDERS: Family Provider Family Medicine; PCP Family Medicine; Referring Provider Family Medicine; Visit Provider Family Medicine
DX: E78.2 Mixed hyperlipidemia (principal); I10 Essential (primary) hypertension; R73.9 Hyperglycemia, unspecified
CPT/HCPCS: 36415; 80053; 80061; 82043; 82570; 85025

== ENCOUNTER → 2020-09-06 13:26 | Outpatient (CLI) | payer MEDICARE, SELFPAY ==
[2019-12-27 16:02] VITALS: BMI 31.4
[2020-09-06 15:36] LABS: COVID19 -Nasal RAPID Negative (Negative)
== END ==
PROVIDERS: Family Provider Family Medicine; PCP Family Medicine; Visit Provider Student in an Organized Health Care Education/Training Program
DX: R51.9 Headache, unspecified (principal); R53.83 Other fatigue; Z20.822 Contact with and (suspected) exposure to COVID-19
CPT/HCPCS: 87635

== ENCOUNTER → 2021-01-08 11:35 | Outpatient (CLI) | payer MEDICARE, SELFPAY ==
[2020-11-02 13:09] VITALS: BMI 31.4
--- NOTE | 2021-01-08 11:37 | DI.RAD.S_ITS ---
PROCEDURE: XR LUMBAR SPINE MIN 4V INDICATIONS: BACK PAIN TECHNIQUE: 5 views of the lumbar spine were acquired, including bilateral oblique views. COMPARISON: [facility], CR, XR LUMBAR SPINE 2-3V, 07/23/2018, 16:33. FINDINGS: Bones: No acute fracture. Straightening of the normal lordotic curvature. Trace retrolisthesis of L3 on L4 and L4 on L5. Severe L3-L4 disc space narrowing. Severe narrowing of the L4-L5 and L5-S1 disc spaces. Moderate to severe narrowing of the remaining lumbar disc spaces, as well as the lower thoracic spine disc spaces. Soft tissues: Overlying bowel gas pattern is normal. No suspicious soft tissue calcifications. Upper abdominal surgical clips. Oblique images: No pars defects. IMPRESSION: Grossly unchanged appearance of severe diffuse thoracolumbar spondylosis and facet arthropathy. Dictated by: Romel Carcamo M.D. on 01/08/2021 at 12:10 Approved by: Romel Carcamo M.D. on 01/08/2021 at 12:12
--- NOTE | 2021-01-08 11:37 | DI.RAD.S_ITS ---
PROCEDURE: XR KNEE LT 3V INDICATIONS: LEFT KNEE PAIN TECHNIQUE: 3 views of the knee were acquired. COMPARISON: [facility], CR, XR KNEE RT 3V, 09/28/2018, 17:44. FINDINGS: Bones: No fractures or dislocations. Moderate to severe medial femoral tibial compartment osteoarthritis is seen. Mild patellofemoral and lateral femoral tibial compartment osteoarthritic changes also seen. No suspicious bony lesions. Soft tissues: No joint effusion. No suspicious soft tissue calcifications. IMPRESSION: Moderate to severe medial femoral tibial compartment osteoarthritis. Mild patellofemoral and lateral femoral tibial compartment osteoarthritis. No fracture or dislocation. No joint effusion. Dictated by: Russell Nair M.D. on 01/08/2021 at 13:32 Approved by: Russell Nair M.D. on 01/08/2021 at 13:33
== END ==
PROVIDERS: Family Provider Family Medicine; PCP Family Medicine; Referring Provider Physical Medicine & Rehabilitation; Visit Provider Physical Medicine & Rehabilitation
DX: M25.562 Pain in left knee (principal); M17.12 Unilateral primary osteoarthritis, left knee; M47.815 Spondylosis without myelopathy or radiculopathy, thoracolumbar region; M48.061 Spinal stenosis, lumbar region without neurogenic claudication; M51.26 Other intervertebral disc displacement, lumbar region
CPT/HCPCS: 72110; 73562

== ENCOUNTER → 2021-04-18 10:36 | Outpatient (CLI) | payer MEDICARE, SELFPAY ==
[2020-11-02 13:09] VITALS: BMI 31.4
--- NOTE | 2021-04-18 10:37 | DI.RAD.S_ITS ---
PROCEDURE: XR DEXA AXIAL SKELETON INDICATIONS: Monitoring patient on long-term AI therapy COMPARISON: [facility], CR, XR DEXA AXIAL SKELETON, 12/10/2017, 10:37. FINDINGS: This blank DEXA report has been sent in error by the PACS system. The correct and complete report will be forthcoming in 1-2 days. Thank you for your patience and understanding. Dictated by: Azul Hsu MD, PhD on 04/18/2021 at 16:01 Approved by: Azul Hsu MD, PhD on 04/18/2021 at 16:01
--- NOTE | 2021-04-18 10:37 | DI.MG.S_ITS ---
UNILATERAL RIGHT DIGITAL SCREENING MAMMOGRAM 3D/2D WITH CAD POST MASTECTOMY: 04/18/2021 CLINICAL: Routine screening. Personal history of left breast cancer. Comparison is made to exams dated: 03/31/2020 mammogram, 03/30/2019 mammogram, 03/18/2018 mammogram, 03/31/2020 ultrasound, and 02/23/2018 ultrasound - [facility]. There are scattered fibroglandular elements in right breast. Current study was also evaluated with a Computer Aided Detection (CAD) system. No significant masses, calcifications, or other findings are seen in the breast. There has been no significant interval change. IMPRESSION: NEGATIVE There is no mammographic evidence of malignancy. A 1 year screening mammogram is recommended. This exam was interpreted at Station ID: [id number]. NOTE: For mammograms, a report in lay terms will be sent to the patient. Approximately 15% of breast malignancies will not be visualized mammographically. In the management of a palpable breast mass, a negative mammogram must not discourage biopsy of a clinically suspicious lesion. Electronically Signed By: Christian Vargas M.D., jr/yony:04/18/2021 12:57:40 copy to: RICA WHITFIELD letter sent: Normal Exam ACR BI-RADS Category 1: Negative 3341F
== END ==
PROVIDERS: Family Provider Family Medicine; PCP Family Medicine; Referring Provider Internal Medicine; Visit Provider Internal Medicine
DX: Z78.0 Asymptomatic menopausal state (principal); C50.412 Malignant neoplasm of upper-outer quadrant of left female breast; Z12.31 Encounter for screening mammogram for malignant neoplasm of breast; Z17.0 Estrogen receptor positive status [ER+]
CPT/HCPCS: 77063; 77067; 77080

== ENCOUNTER 2021-11-27 08:31 | Emergency (ER) | payer MEDICARE, SELFPAY ==
[2020-11-02 13:09] VITALS: BMI 31.4
[2021-11-27 08:39] VITALS: BP 163/86; PULSE 77; RESP 18; TEMP 37; O2SAT 96; BMI 32.0
--- NOTE | 2021-11-27 09:59 | ED.UPPEXIN ---
HPI - Extremity Injury (Upper) General Chief Complaint: Trauma Stated Complaint: fell/cut right arm Time Seen by Provider: 11/27/21 09:53 Source: patient Mode of arrival: Family Vehicle History of Present Illness HPI narrative: This 71-year-old patient with a history of hypertension in a number of other chronic conditions tripped and fell over her small dog last night about 10:00 p.m. scuffed her knees, bruised her left elbow and has a laceration on the dorsum of the right arm she does not suspect more serious injury elsewhere. She specifically denies headache or head injury neck pain or back pain abdominal pain or chest pain. She has not been sick recently. She denies syncope. Related Data Home Medications Medication Instructions Recorded Confirmed cholecalciferol (vitamin D3) 25 5,000 mg PO QDAY ##0 03/08/16 02/01/21 mcg (1,000 unit) tablet (Vitamin D3) calcium carbonate 430 mg calcium 1,000 mg PO DAILY 08/26/18 02/01/21 (1,000 mg) chewable tablet multivitamin 1 cap PO DAILY 03/01/20 02/01/21 Previous Rx's Medication Instructions Recorded cetirizine 10 mg tablet (Zyrtec) 10 mg PO DAILY #90 tabs 06/12/18 clobetasol 0.05 % topical ointment 1 applictn topical BID #45 grams 06/24/19 diclofenac sodium 1 % topical gel 2 gram topical ONCE PRN pain 06/24/19 (scale score 1-3) #100 grams triamcinolone acetonide 0.5 % 1 applic topical PRN PRN eczema 08/15/20 topical cream #60 grams nortriptyline 25 mg capsule 25 mg PO BEDTIME PRN nerve pain 02/01/21 #30 caps duloxetine 60 mg capsule,delayed See Rx Instructions .Route 05/15/21 release .COMPLEX #90 caps ondansetron 4 mg disintegrating See Rx Instructions .Route 05/30/21 tablet .COMPLEX #60 tabs chlorzoxazone 500 mg tablet 250 mg PO QID #45 tabs 06/18/21 hydrocortisone 2.5 % topical cream See Rx Instructions .Route 06/18/21 .COMPLEX #28 grams metoprolol succinate 100 mg 100 mg PO QDAY #90 tabs 08/02/21 tablet,extended release 24 hr celecoxib 200 mg capsule (Celebrex) 200 mg PO DAILY #90 caps 09/20/21 losartan 50 mg tablet 50 mg PO DAILY #90 tabs 09/20/21 letrozole 2.5 mg tablet 2.5 mg PO DAILY #90 tabs 10/05/21 omeprazole 20 mg capsule,delayed See Rx Instructions .Route 10/29/21 release .COMPLEX #90 caps Allergies Allergy/AdvReac Type Severity Reaction Status Date / Time gabapentin Allergy Severe LOOPY Verified 01/10/21 14:10 Review of Systems Review of Systems Narrative: Complete review of systems is negative other than as noted in the HPI Patient History Medical History (Updated 11/27/21 @ 10:12 by Thom Hoover MD) Anemia (2016) Biliary colic Breast cancer (2015) Cardiomyopathy due to chemotherapy Chicken pox (1956) Cholelithiasis Chronic back pain (1967) Depression (1999) Eczema (2007) Foot pain (2016) Hemorrhoids (1994) History of antineoplastic chemotherapy Hypertension (1989) Lumbar spine pain (1967) Microalbuminuria Neuropathy Peripheral neuropathy Shoulder pain (2016) Sleep apnea (2006) URI (upper respiratory infection) Surgical History Anesthesia History of knee replacement (10/2014) History of left mastectomy History of lumpectomy (2015) Status post left breast reconstruction Status post partial mastectomy (06/2016) Family History Father Mental health problem Suicide Loud snoring Depression Alcohol abuse Mother Hypertension High cholesterol Stroke Diabetes mellitus Loud snoring Restless leg Obesity Heart disease Depression Grandmother No problems noted. Social History household members: spouse Smoking Status: Never smoker Smoking Status: Never smoker alcohol intake frequency: 0-2 drinks per day Substance Use Type: does not use Exam Narrative Exam Narrative: GENERAL: Alert, cooperative and in no distress. HEAD: Atraumatic. Normocephalic. EYES: Sclera are clear without icterus. Extraocular movements are full. ENT: No rhinorrhea. No obvious injury to the face NECK: Supple. Full range of motion. CARDIOVASCULAR: Normal perfusion, normal skin color RESPIRATORY: No respiratory distress GASTROINTESTINAL: Abdomen nondistended. EXTREMITIES: No edema, full range of motion. She has a small skin tear on the dorsum of the right forearm. No active bleeding. No sign of infection. No sign of fracture NEURO: Nonfocal examination, normal speech SKIN: No rash or erythema see extremity exam above PSYCH: Normally oriented. Normal range of affect. Appropriate behavior Initial Vital Signs Initial Vital Signs: Vital Signs Temperature 98.6 F 11/27/21 08:39 Pulse Rate 77 11/27/21 08:39 Respiratory Rate 18 11/27/21 08:39 Blood Pressure 163/86 H 11/27/21 08:39 Pulse Oximetry 96 11/27/21 08:39 Oxygen Delivery Method 11/27/21 08:39 Course Orders Ordered: Discontinued Medications Bacitracin (Bacitracin Oint 0.9 Gm Pckt) 1 applic TOP NOW ONE Stop: 11/27/21 10:10 Vital Signs Vital signs: Vital Signs - 8 hr 11/27/21 08:39 Temperature 98.6 F Pulse Rate 77 Respiratory Rate 18 Blood Pressure 163/86 H Pulse Oximetry 96 Oxygen Delivery Method Room Air MDM - Extremity Injury (Upper) MDM Narrative Medical decision making narrative: See discharge instructions for details. No wound repair indicated Discharge Plan Departure Patient Disposition: Home Clinical Impression: Laceration Instructions: DI for Minor Laceration Activity Restrictions/Additional Instructions: No wound repair is recommended because of the thin nature of the flap. I think this wound will heal fine on its own and I do not think I can make it better with stitches are Steri-Strips. I recommend daily cleansing gently. Apply antibiotic ointment once or twice a day with a sterile bandage. Follow-up right away for signs or symptoms of infection such as increasing pain or redness. This is not likely to occur. Prescriptions: No Action cholecalciferol (vitamin D3) [Vitamin D3] 1,000 UNIT tablet 5,000 mg PO QDAY Qty: 0 duloxetine 60 mg capsule,delayed release(DR/EC) See Rx Instructions .ROUTE .COMPLEX Qty: 90 3RF Dose Instruction: take 1 capsule by mouth once daily Rx Instructions: take 1 capsule by mouth once daily ondansetron 4 mg tablet,disintegrating See Rx Instructions .ROUTE .COMPLEX Qty: 60 0RF Dose Instruction: dissolve 1 tablet ON TONGUE every 6 hours if needed for nausea OR vomiting Rx Instructions: dissolve 1 tablet ON TONGUE every 6 hours if needed for nausea OR vomiting hydrocortisone 2.5 % cream See Rx Instructions .ROUTE .COMPLEX Qty: 28 3RF Dose Instruction: apply to affected area twice a day if needed for rash Rx Instructions: apply to affected area twice a day if needed for rash chlorzoxazone 500 mg tablet 250 mg PO QID Qty: 45 5RF metoprolol succinate 100 mg tablet extended release 24 hr 100 mg PO QDAY Qty: 90 0RF losartan 50 mg tablet 50 mg PO DAILY Qty: 90 3RF celecoxib [Celebrex] 200 mg capsule 200 mg PO DAILY Qty: 90 2RF letrozole 2.5 mg tablet 2.5 mg PO DAILY Qty: 90 3RF omeprazole 20 mg capsule,delayed release(DR/EC) See Rx Instructions .ROUTE .COMPLEX Qty: 90 0RF Dose Instruction: take 1 capsule by mouth daily Rx Instructions: take 1 capsule by mouth daily calcium carbonate 430 mg calcium (1,000 mg) tablet,chewable 1,000 mg PO DAILY triamcinolone acetonide 0.5 % cream 1 applic Topical PRN PRN (Reason: eczema) Qty: 60 6RF nortriptyline 25 mg capsule 25 mg PO BEDTIME PRN (Reason: nerve pain) Qty: 30 0RF cetirizine [Zyrtec] 10 mg tablet 10 mg PO DAILY Qty: 90 3RF diclofenac sodium 1 % gel 2 gram TOP ONCE PRN (Reason: pain (scale score 1-3)) Qty: 100 5RF clobetasol 0.05 % ointment 1 applictn TOP BID Qty: 45 5RF multivitamin Capsule 1 cap PO DAILY Referrals: Bao Orantes MD [Primary Care Provider] - Visit Report Forms: Patient Portal/API
[2021-11-27] MEDS: BACITRACIN OINT 0.9 GM PCKT 1 APPLIC TOP (10:14)
== END 2021-11-27 10:30 | disposition home or self-care (01) ==
PROVIDERS: Emergency Provider Family Medicine Addiction Medicine; Family Provider Family Medicine; PCP Family Medicine
DX: S41.111A Laceration without foreign body of right upper arm, initial encounter (principal); W01.0XXA Fall on same level from slipping, tripping and stumbling without subsequent striking against object, initial encounter
CPT/HCPCS: 99282

== ENCOUNTER 2022-07-14 20:06 | Emergency (ER) | payer MEDICARE, SELFPAY ==
[2020-11-02 13:09] VITALS: BMI 31.4
[2022-07-14] VITALS (9 sets, daily range): BP systolic 173–201; BP diastolic 91–117; PULSE 94–108; RESP 18–27; TEMP 38.2–38.7; O2SAT 93–97; BMI 30.9
[2022-07-14] MEDS: ONDANSETRON 4 MG ODT SL (20:39)
[2022-07-14 21:12] LABS: Influenza A - CEPHEID Flu A NEGATIVE (NEGATIVE); Influenza B - CEPHEID Flu B NEGATIVE (NEGATIVE); Respiratory Syncytial Virus Negative (Negative)
[2022-07-14 21:18] LABS: COVID-19 CEPHEID 4-PLEX PCR Negative (Negative)
--- NOTE | 2022-07-14 22:14 | ED.GENADULT ---
HPI - General Adult General Chief complaint: Fever Stated complaint: fever/nausea/chills/cough x1 day Time Seen by Provider: 07/14/22 21:38 Source: patient Mode of arrival: Ambulatory Limitations: no limitations History of Present Illness HPI narrative: Patient is a 72-year-old female. She woke up this morning with a headache. She states that often she can feel when she is having a fever because her ?skin crawls? she started to feel this. She took her temperature at home and she states that it was elevated. She did take an Excedrin. She states she is having a dry cough for the past couple days. No vomiting. No chest pain. No sinus congestion. Related Data Home Medications Medication Instructions Recorded Confirmed cholecalciferol (vitamin D3) 25 5,000 mg PO QDAY ##0 03/08/16 02/01/21 mcg (1,000 unit) tablet (Vitamin D3) calcium carbonate 430 mg calcium 1,000 mg PO DAILY 08/26/18 02/01/21 (1,000 mg) chewable tablet multivitamin 1 cap PO DAILY 03/01/20 02/01/21 Previous Rx's Medication Instructions Recorded cetirizine 10 mg tablet (Zyrtec) 10 mg PO DAILY #90 tabs 06/12/18 clobetasol 0.05 % topical ointment 1 applictn topical BID #45 grams 06/24/19 diclofenac sodium 1 % topical gel 2 gram topical ONCE PRN pain 06/24/19 (scale score 1-3) #100 grams triamcinolone acetonide 0.5 % 1 applic topical PRN PRN eczema 08/15/20 topical cream #60 grams nortriptyline 25 mg capsule 25 mg PO BEDTIME PRN nerve pain 02/01/21 #30 caps duloxetine 60 mg capsule,delayed See Rx Instructions .Route 05/15/21 release .COMPLEX #90 caps ondansetron 4 mg disintegrating See Rx Instructions .Route 05/30/21 tablet .COMPLEX #60 tabs chlorzoxazone 500 mg tablet 250 mg PO QID #45 tabs 06/18/21 hydrocortisone 2.5 % topical cream See Rx Instructions .Route 06/18/21 .COMPLEX #28 grams celecoxib 200 mg capsule (Celebrex) 200 mg PO DAILY #90 caps 09/20/21 losartan 50 mg tablet 50 mg PO DAILY #90 tabs 09/20/21 letrozole 2.5 mg tablet 2.5 mg PO DAILY #90 tabs 10/05/21 metoprolol succinate 100 mg 100 mg PO QDAY #90 tabs 12/05/21 tablet,extended release 24 hr omeprazole 20 mg capsule,delayed See Rx Instructions .Route 03/12/22 release .COMPLEX #90 caps Allergies Allergy/AdvReac Type Severity Reaction Status Date / Time gabapentin Allergy Severe LOOPY Verified 07/14/22 20:28 Review of Systems Review of Systems ROS Unobtainable: All systems reviewed & are unremarkable except as noted in HPI and below Patient History Medical History Anemia (2016) Biliary colic Breast cancer (2015) Cardiomyopathy due to chemotherapy Chicken pox (1956) Cholelithiasis Chronic back pain (1967) Depression (1999) Eczema (2007) Foot pain (2016) Hemorrhoids (1994) History of antineoplastic chemotherapy Hypertension (1989) Lumbar spine pain (1967) Microalbuminuria Neuropathy Peripheral neuropathy Shoulder pain (2016) Sleep apnea (2006) URI (upper respiratory infection) Surgical History Anesthesia History of knee replacement (10/2014) History of left mastectomy History of lumpectomy (2015) Status post left breast reconstruction Status post partial mastectomy (06/2016) Family History Father Mental health problem Suicide Loud snoring Depression Alcohol abuse Mother Hypertension High cholesterol Stroke Diabetes mellitus Loud snoring Restless leg Obesity Heart disease Depression Grandmother No problems noted. Social History household members: spouse Smoking Status: Never smoker Smoking Status: Never smoker alcohol intake frequency: 0-2 drinks per day Substance Use Type: does not use Exam Initial Vital Signs Initial Vital Signs: Vital Signs Temperature 101.6 F H 07/14/22 20:21 Pulse Rate 108 H 07/14/22 20:21 Respiratory Rate 18 07/14/22 20:21 Blood Pressure 198/117 H 07/14/22 20:21 Pulse Oximetry 97 07/14/22 20:21 Oxygen Delivery Method Room Air 07/14/22 20:21 Const General: cooperative, comfortable and No ill appearing HENMT Head: normal to inspection and normocephalic Ears: TM's normal bilaterally Mouth: oral mucosae normal Neck Neck: no meningeal signs Resp Effort & Inspection: normal respiratory effort Auscultation: clear to auscultation bilaterally Cardio Rate: regular rate Rhythm: regular rhythm Skin General: no rashes or lesions noted Neuro General: patient alert, patient awake, patient oriented x3 and moves all extremities Extrem General: normal to inspection Course Orders Ordered: ED Orders 07/14/22 22:15 XR chest 1V Stat Discontinued Medications Acetaminophen (Acetaminophen 325 Mg Tablet) 650 mg PO NOW ONE Stop: 07/14/22 22:39 Last Admin: 07/14/22 22:43 Dose: 650 mg Documented By: ELIDIA Diphenhydramine HCl (Diphenhydramine 50 Mg/Ml Vial) 25 mg IV NOW ONE Stop: 07/14/22 23:40 Last Admin: 07/15/22 00:12 Dose: 25 mg Documented By: ELIDIA Ketorolac Tromethamine (Ketorolac 30 Mg/Ml Vial) 30 mg IV NOW ONE Stop: 07/14/22 22:39 Last Admin: 07/14/22 22:43 Dose: 30 mg Documented By: ELIDIA Metoclopramide HCl (Metoclopramide 10 Mg/2 Ml Inj) 10 mg IV NOW ONE Stop: 07/14/22 23:40 Last Admin: 07/15/22 00:12 Dose: 10 mg Documented By: ELIDIA Ondansetron HCl (Ondansetron 4 Mg Odt) 4 mg SL NOW ONE Stop: 07/14/22 20:38 Last Admin: 07/14/22 20:39 Dose: 4 mg Documented By: ANDREW Vital Signs Vital signs: Vital Signs - 8 hr 07/14/22 22:30 07/14/22 22:30 07/14/22 23:00 Pulse Rate 97 H Respiratory Rate 20 Blood Pressure 173/95 H 179/91 H Pulse Oximetry 94 07/14/22 23:00 07/14/22 23:30 07/14/22 23:30 Pulse Rate 95 H 94 H Respiratory Rate 26 H 27 H Blood Pressure 175/94 H Pulse Oximetry 93 94 07/15/22 00:00 07/15/22 00:00 07/15/22 00:30 Pulse Rate 90 Respiratory Rate 24 Blood Pressure 169/93 H 168/90 H Pulse Oximetry 94 07/15/22 00:30 07/15/22 01:00 07/15/22 01:00 Pulse Rate 90 90 Respiratory Rate 24 24 Blood Pressure 150/93 H Pulse Oximetry 94 95 07/15/22 01:30 07/15/22 01:30 07/15/22 02:00 Pulse Rate 84 88 Respiratory Rate 21 22 Blood Pressure 144/82 H Pulse Oximetry 95 95 07/15/22 02:01 07/15/22 02:01 07/15/22 02:30 Pulse Rate 87 Respiratory Rate 22 Blood Pressure 171/79 H 151/70 H Pulse Oximetry 94 07/15/22 02:30 07/15/22 03:00 07/15/22 03:00 Pulse Rate 90 90 Respiratory Rate 21 23 Blood Pressure 134/76 Pulse Oximetry 95 95 07/15/22 03:30 07/15/22 03:30 07/15/22 04:00 Pulse Rate 89 Respiratory Rate 23 Blood Pressure 146/81 H 141/78 H Pulse Oximetry 94 07/15/22 04:00 07/15/22 04:30 07/15/22 04:30 Pulse Rate 91 H 88 Respiratory Rate 23 22 Blood Pressure 139/74 Pulse Oximetry 94 94 07/15/22 05:00 07/15/22 05:00 Pulse Rate 92 H Respiratory Rate 22 Blood Pressure 141/75 H Pulse Oximetry 96 Medical Decision Making Lab Data Lab results reviewed: Yes I reviewed the patient's lab results. Labs: Lab Results 07/14/22 Range/Units 20:25 SARS-CoV-2 (PCR) Negative (Negative) Influenza A (RT-PCR) Flu a negative (NEGATIVE) Influenza B (RT-PCR) Flu b negative (NEGATIVE) RSV (PCR) Negative (Negative) Imaging Data Chest x-ray: Radiologist's Impression: PROCEDURE:? XR CHEST 1V ? INDICATIONS:? eval for PNA ? TECHNIQUE:? One view of the chest was acquired.? ? COMPARISON:? [facility], [place], XR CHEST 1V, 04/05/2018, 2:59. ? FINDINGS:? ? Surgical changes and devices:? Multiple surgical clips are redemonstrated within the left axilla. ? Lungs and pleura:? Lungs are clear.? No pleural effusions or pneumothorax.? ? Mediastinum:? Mediastinal contours appear normal.? Heart size is normal.? ? Bones and chest wall:? No suspicious bony lesions.? Overlying soft tissues appear unremarkable.? ? IMPRESSION:? ? 1.? No acute cardiopulmonary disease. ECG Data Attestation: I personally reviewed and interpreted this ECG as follows: Interpretation: Sinus rhythm Ventricular rate 97 Artifact noted in lead 1 and 3 Normal QRS Normal QTC No ST T wave changes MDM Narrative Medical decision making narrative: Flu and COVID negative. Chest x-ray is unremarkable. I have low suspicion for meningitis based on her physical exam today. Patient was still having headache after initial treatment. She was then given Reglan and Benadryl and fell asleep. She was in the emergency department for several hours because she did not have a ride home. I feel that we can hold on further workup. I suspect that this is viral in origin. No indication for antibiotics. She was given return precautions and follow-up instructions. She expressed understanding and agreement. Discharge Plan Departure Patient Disposition: Home Clinical Impression: Headache Prescriptions: No Action cholecalciferol (vitamin D3) [Vitamin D3] 1,000 UNIT tablet 5,000 mg PO QDAY Qty: 0 duloxetine 60 mg capsule,delayed release(DR/EC) See Rx Instructions .ROUTE .COMPLEX Qty: 90 3RF Dose Instruction: take 1 capsule by mouth once daily Rx Instructions: take 1 capsule by mouth once daily ondansetron 4 mg tablet,disintegrating See Rx Instructions .ROUTE .COMPLEX Qty: 60 0RF Dose Instruction: dissolve 1 tablet ON TONGUE every 6 hours if needed for nausea OR vomiting Rx Instructions: dissolve 1 tablet ON TONGUE every 6 hours if needed for nausea OR vomiting hydrocortisone 2.5 % cream See Rx Instructions .ROUTE .COMPLEX Qty: 28 3RF Dose Instruction: apply to affected area twice a day if needed for rash Rx Instructions: apply to affected area twice a day if needed for rash chlorzoxazone 500 mg tablet 250 mg PO QID Qty: 45 5RF losartan 50 mg tablet 50 mg PO DAILY Qty: 90 3RF celecoxib [Celebrex] 200 mg capsule 200 mg PO DAILY Qty: 90 2RF letrozole 2.5 mg tablet 2.5 mg PO DAILY Qty: 90 3RF metoprolol succinate 100 mg tablet extended release 24 hr 100 mg PO QDAY Qty: 90 3RF omeprazole 20 mg capsule,delayed release(DR/EC) See Rx Instructions .ROUTE .COMPLEX Qty: 90 0RF Dose Instruction: take 1 capsule by mouth daily Rx Instructions: take 1 capsule by mouth daily calcium carbonate 430 mg calcium (1,000 mg) tablet,chewable 1,000 mg PO DAILY triamcinolone acetonide 0.5 % cream 1 applic Topical PRN PRN (Reason: eczema) Qty: 60 6RF nortriptyline 25 mg capsule 25 mg PO BEDTIME PRN (Reason: nerve pain) Qty: 30 0RF cetirizine [Zyrtec] 10 mg tablet 10 mg PO DAILY Qty: 90 3RF diclofenac sodium 1 % gel 2 gram TOP ONCE PRN (Reason: pain (scale score 1-3)) Qty: 100 5RF clobetasol 0.05 % ointment 1 applictn TOP BID Qty: 45 5RF multivitamin Capsule 1 cap PO DAILY Referrals: Bao Orantes MD [Primary Care Provider] - Stand Alone Forms: Patient Portal/API
--- NOTE | 2022-07-14 22:15 | DI.RAD.S_ITS ---
PROCEDURE: XR CHEST 1V INDICATIONS: eval for PNA TECHNIQUE: One view of the chest was acquired. COMPARISON: [facility], CR, XR CHEST 1V, 04/05/2018, 2:59. FINDINGS: Surgical changes and devices: Multiple surgical clips are redemonstrated within the left axilla. Lungs and pleura: Lungs are clear. No pleural effusions or pneumothorax. Mediastinum: Mediastinal contours appear normal. Heart size is normal. Bones and chest wall: No suspicious bony lesions. Overlying soft tissues appear unremarkable. IMPRESSION: 1. No acute cardiopulmonary disease. Dictated by: Patrick Patterson M.D. on 07/14/2022 at 22:57 Approved by: Patrick Patterson M.D. on 07/14/2022 at 23:26
[2022-07-14] MEDS: KETOROLAC 30 MG/ML VIAL IV (22:43)
[2022-07-14] MEDS: ACETAMINOPHEN 325 MG TABLET 650 MG PO (22:43)
[2022-07-15] VITALS (14 sets, daily range): BP systolic 134–171; BP diastolic 70–93; PULSE 84–97; RESP 16–24; O2SAT 94–96
[2022-07-15] MEDS: diphenhydrAMINE 50 MG/ML VIAL 25 MG IV (00:12)
[2022-07-15] MEDS: METOCLOPRAMIDE 10 MG/2 ML INJ IV (00:12)
== END 2022-07-15 06:43 | disposition home or self-care (01) ==
PROVIDERS: Emergency Provider Emergency Medicine; Family Provider Family Medicine; PCP Family Medicine
DX: R51.9 Headache, unspecified (principal); R50.9 Fever, unspecified; Z20.822 Contact with and (suspected) exposure to COVID-19
CPT/HCPCS: 0241U; 36415; 71045; 93005; 96374; 96375; 99284; J1200; J1885; J2765

== ENCOUNTER → 2022-08-06 10:50 | Outpatient (CLI) | payer MEDICARE, SELFPAY ==
[2022-07-22 13:52] VITALS: BMI 31.4
--- NOTE | 2022-08-06 | DI.MG.S_ITS ---
UNILATERAL RIGHT DIGITAL SCREENING MAMMOGRAM 3D/2D WITH CAD: 08/06/2022 CLINICAL: Routine screening. Personal history of left breast cancer. Comparison is made to exams dated: 04/18/2021 mammogram, 03/31/2020 mammogram, 03/18/2018 mammogram, and 03/30/2019 mammogram - [facility]. There are scattered areas of fibroglandular density in the right breast (category b / 25%-50% glandular tissue). Current study was also evaluated with a Computer Aided Detection (CAD) system. No significant masses, calcifications, or other findings are seen in the breast. There has been no significant interval change. IMPRESSION: NEGATIVE There is no mammographic evidence of malignancy. A 1 year screening mammogram is recommended. This exam was interpreted at Station ID: [id number]. NOTE: For mammograms, a report in lay terms will be sent to the patient. Approximately 15% of breast malignancies will not be visualized mammographically. In the management of a palpable breast mass, a negative mammogram must not discourage biopsy of a clinically suspicious lesion. Electronically Signed By: Danielito forbes/yony:08/06/2022 13:04:39 copy to: RICA WHITFIELD letter sent: Normal Exam ACR BI-RADS Category 1: Negative 3341F
== END ==
PROVIDERS: Family Provider Family Medicine; PCP Family Medicine; Referring Provider Internal Medicine Medical Oncology; Visit Provider Internal Medicine Medical Oncology
DX: Z12.31 Encounter for screening mammogram for malignant neoplasm of breast (principal); Z85.3 Personal history of malignant neoplasm of breast
CPT/HCPCS: 77063; 77067

== ENCOUNTER → 2022-08-06 10:56 | Outpatient (CLI) | payer MEDICARE, SELFPAY ==
[2022-07-22 13:52] VITALS: BMI 31.4
[2022-08-06 11:27] LABS: Add Manual Diff / Slide Review NO; Basophils Absolute Auto 100 /uL (0-100); Basophils Percent Auto 0.8 % (0-2); Eosinophils Absolute Auto 100 /uL (0-450); Eosinophils Percent Auto 1.5 % (2-4); Hemoglobin 14.5 g/dL (12.0-16.0); Lymphocytes Absolute Auto 1300 /uL (1100-4500); Lymphocytes Percent Auto 19.2 % (25-40); Mean Corpuscular HGB Conc 34.5 % (30-36); Mean Corpuscular Hemoglobin 32.9 PG (26-34); Mean Corpuscular Volume 95.2 fL (80-100); Monocytes Absolute Auto 600 /uL (0-900); Monocytes Percent Auto 9.4 % (3-14); Neutrophils Absolute Auto 4700 /uL (1500-7000); Neutrophils Percent Auto 69.1 % (50-75); Platelet Count 258 X10^3/uL (150-400); Red Blood Cell Count 4.41 X10^6/uL (4.0-5.2); Red Cell Distribution Width 13.1 % (11.6-14.8); White Blood Cell Count 6.8 X10^3/uL (4.5-11.0)
[2022-08-06 11:50] LABS: Alanine Aminotransferase 21 IU/L (<35); Albumin 3.9 g/dL (3.5-5.0); Albumin Globulin Ratio 1.3 (1.0-2.8); Alkaline Phosphatase 134 U/L (38-126); Aspartate Aminotransferase 25 IU/L (14-36); BUN Creatinine Ratio 15.5 (6-22); Bilirubin Total 1.2 mg/dL (0.2-1.3); Blood Urea Nitrogen 11 mg/dL (7-17); Calcium 9.4 mg/dL (8.4-10.2); Carbon Dioxide 30 mmol/L (22-32); Chloride 101 mmol/L (98-107); Cholesterol 205 mg/dL (140-199); Estimated Glomerular Filt Rate > 60 mL/min (>60); Globulin 2.9 g/dL (1.7-4.1); Glucose 121 mg/dL (80-110); HDL Cholesterol 70 mg/dL (40-60); HEMOLYSIS < 15 (0-50); LDL Cholesterol Calculated 105 mg/dL (<100); Potassium 3.8 mmol/L (3.4-5.1); Sodium 139 mmol/L (137-145); Total Protein 6.8 g/dL (6.3-8.2); Triglycerides 150 mg/dL (35-150)
[2022-08-06 15:21] LABS: Creatinine Urine Random 133.1 mg/dL
== END ==
PROVIDERS: Family Provider Family Medicine; PCP Family Medicine; Referring Provider Family Medicine; Visit Provider Family Medicine
DX: E78.2 Mixed hyperlipidemia (principal); F32.9 Major depressive disorder, single episode, unspecified; I10 Essential (primary) hypertension; R80.9 Proteinuria, unspecified; C50.912 Malignant neoplasm of unspecified site of left female breast
CPT/HCPCS: 36415; 80053; 80061; 82043; 82570; 84443; 85025

== ENCOUNTER → 2022-10-25 12:23 | Outpatient (CLI) | payer MEDICARE, SELFPAY ==
[2022-07-22 13:52] VITALS: BMI 31.4
--- NOTE | 2022-10-25 12:24 | DI.RAD.S_ITS ---
PROCEDURE: XR LUMBAR SPINE MIN 4V INDICATIONS: BACK PAIN TECHNIQUE: 5 views of the lumbar spine were acquired, including bilateral oblique views. COMPARISON: [facility], CR, XR LUMBAR SPINE MIN 4V, 01/08/2021, 11:34. [facility], CR, XR LUMBAR SPINE 2-3V, 07/23/2018, 16:33. FINDINGS: Bones: 5 nonrib-bearing vertebrae are present. There is normal bony alignment. No vertebral body compression fractures. No suspicious bony lesions. Moderate to severe disc height loss at all levels. Facet arthrosis L4 through S1. Grade 1 retrolisthesis of L3 on L4 and L2 on L3. Soft tissues: Overlying bowel gas pattern is normal. No suspicious soft tissue calcifications. Oblique images: No pars defects. IMPRESSION: Moderate to severe disc height loss at all levels, and lower lumbar facet arthrosis. Dictated by: Neville Che M.D. on 10/25/2022 at 13:23 Approved by: Neville Che M.D. on 10/25/2022 at 13:24
--- NOTE | 2022-10-25 12:24 | DI.RAD.S_ITS ---
PROCEDURE: XR KNEE LT 3V INDICATIONS: LEFT KNEE PAIN TECHNIQUE: 3 views of the knee were acquired. COMPARISON: [facility], , XR KNEE LT 3V, 01/08/2021, 11:34. [facility], CR, XR KNEE RT 3V, 09/28/2018, 17:44. FINDINGS: Bones: No fractures or dislocations. No suspicious bony lesions. Tricompartmental joint space narrowing with associated osteophytosis. Subchondral sclerosis and bone cysts about the medial tibiofemoral compartment. Soft tissues: No joint effusion. No suspicious soft tissue calcifications. IMPRESSION: [id number] tricompartmental osteoarthritis. Kellgren-Trey Grade 2-3. Dictated by: Neville Che M.D. on 10/25/2022 at 13:24 Approved by: Neville Che M.D. on 10/25/2022 at 13:25
== END ==
PROVIDERS: Family Provider Family Medicine; PCP Family Medicine; Referring Provider Physical Medicine & Rehabilitation; Visit Provider Physical Medicine & Rehabilitation
DX: M47.816 Spondylosis without myelopathy or radiculopathy, lumbar region (principal); M47.817 Spondylosis without myelopathy or radiculopathy, lumbosacral region; M51.26 Other intervertebral disc displacement, lumbar region; M48.061 Spinal stenosis, lumbar region without neurogenic claudication; M17.12 Unilateral primary osteoarthritis, left knee; M25.562 Pain in left knee
CPT/HCPCS: 72110; 73562

== ENCOUNTER → 2022-11-20 11:49 | Outpatient (CLI) | payer MEDICARE, SELFPAY ==
[2022-07-22 13:52] VITALS: BMI 31.4
--- NOTE | 2022-11-20 11:52 | DI.MRI.S_ITS ---
PROCEDURE: MR LUMBAR SPINE WO CON INDICATIONS: STENOSIS WITH LEFT LOWER EXTREMITY SYMPTOMS TECHNIQUE: Noncontrast sagittal T1 spin echo and T2 fast echo, sagittal STIR, and T2 fast spin echo through the lumbar spine. In cases with scoliosis, additional coronal T2 fast spin echo may be performed. COMPARISON: [facility], MR, MR LUMBAR SPINE WO CON, 07/23/2018, 17:00. FINDINGS: Image quality: Excellent. Alignment and Curvature: There is normal bony alignment. Bone Marrow: There is extensive reactive endplate changes throughout the lumbar spine. When compared with the study dated July 23, 2018, these findings have markedly increased in severity. Specifically, severe degenerative changes are now present at T12-L1 where there was previously no significant degenerative disease. Spinal Cord: Conus medullaris terminates at the L1 level. Visualized cord demonstrates normal signal and size. Paraspinous Soft Tissues: No paravertebral masses. T12-L1: Severe disc desiccation and height loss. Severe reactive endplate changes. Broad-based disc bulge. Mild facet ligamentum flavum hypertrophy. No canal stenosis. Mild right foraminal narrowing. The extent of degenerative disc disease and reactive endplate changes is markedly increased when compared with the prior study. L1-L2: Severe disc desiccation and height loss. Broad-based disc bulge. Moderate facet and ligamentum flavum hypertrophy. Mild canal stenosis. Mild bilateral neural foraminal stenosis. The degree of reactive endplate changes has increased when compared with the prior study. L2-L3: Severe disc desiccation and height loss. Broad-based disc bulge. Moderate canal stenosis. Mild bilateral foraminal stenosis. Findings are similar to the prior study. There is a small focal posterior high-intensity zone which is new when compared with the prior study. L3-L4: Severe disc desiccation and height loss. Severe reactive endplate changes. Moderate facet and ligamentum flavum hypertrophy. Moderate canal stenosis. Slightly increased reactive endplate changes when compared with the prior study. Mild right and moderate left neural foraminal stenosis unchanged from the prior study. There is a small focal posterior high-intensity zone unchanged from the prior study. L4-L5: Severe disc desiccation and height loss. Broad-based disc bulge. Moderate facet ligamentum flavum hypertrophy. Mild canal stenosis. Moderate bilateral foraminal narrowing. Findings are unchanged from the prior study. L5-S1: Severe disc desiccation and height loss. Moderate facet ligamentum flavum hypertrophy. Broad-based disc bulge. There is narrowing of the left lateral recess. No canal stenosis. Mild bilateral foraminal stenosis. Findings are unchanged from the prior study. IMPRESSION: 1. Multilevel severe disc desiccation and height loss and severe reactive endplate changes. Overall these have markedly advanced in extent when compared with the study from 2019. Specifically, there is a marked increase in the degenerative disc disease at T12-L1 and L1-L2. 2. Broad-based disc bulges and facet and ligamentum flavum hypertrophy results in mild canal stenosis at L1-2 and L4-5, and moderate canal stenosis at L2-3 and L3-4. 3. Moderate left foraminal stenosis at L3-4, unchanged. Moderate bilateral foraminal narrowing at L4-5, unchanged. 4. New posterior annular tear at L2-3 and unchanged annular tear at L3-4. Dictated by: Belen Buitrago M.D. on 11/20/2022 at 15:24 Approved by: Belen Buitrago M.D. on 11/20/2022 at 15:37
== END ==
PROVIDERS: Family Provider Family Medicine; PCP Family Medicine; Referring Provider Physical Medicine & Rehabilitation; Visit Provider Physical Medicine & Rehabilitation
DX: M51.26 Other intervertebral disc displacement, lumbar region (principal); M51.35 Other intervertebral disc degeneration, thoracolumbar region; M51.36 Other intervertebral disc degeneration, lumbar region; M47.816 Spondylosis without myelopathy or radiculopathy, lumbar region; M48.061 Spinal stenosis, lumbar region without neurogenic claudication
CPT/HCPCS: 72148

== ENCOUNTER 2022-11-28 08:13 | Outpatient (CLI) | payer MEDICARE, SELFPAY ==
[2022-07-22 13:52] VITALS: BMI 31.4
[2022-11-28] VITALS (10 sets, daily range): BP systolic 132–175; BP diastolic 81–101; PULSE 69–79; RESP 14–22; TEMP 36.1; O2SAT 95–97
--- NOTE | 2022-11-28 08:17 | DI.RAD.S_ITS ---
PROCEDURE: PAIN L/S TRANSFORAMINAL INJECT INDICATIONS: SPONDYLOSIS COMPARISON: [facility], CR, XR LUMBAR SPINE MIN 4V, 10/25/2022, 12:26. FINDINGS: Fluoroscopic spot filming was performed to verify placement of a spinal needle at the L4-L5 level, as labeled on the films. Appropriate location of the needle tip was confirmed by injection of iodinated contrast. IMPRESSION: Intraprocedural examination within normal limits. Dictated by: Brendan Ramirez M.D. on 11/28/2022 at 13:29 Approved by: Brendan Ramirez M.D. on 11/28/2022 at 13:29
[2022-11-28] MEDS: MIDAZOLAM 2 MG/2 ML VIAL IV (09:16)
[2022-11-28] MEDS: BETAMETHASONE 30 MG/5 ML MDV 12 MG INJ (09:21)
[2022-11-28] MEDS: BUPIVACAINE 0.25% (PF) VIAL 5 ML SUBCUT (09:21)
[2022-11-28] MEDS: DEXAMETHASONE 10 MG/ML VIAL 20 MG INJ (09:22)
[2022-11-28] MEDS: IOPAMIDOL 15 ML VIAL 3 ML INJ (09:22)
[2022-11-28] MEDS: MIDAZOLAM 2 MG/2 ML VIAL 1 MG IV (09:25)
--- NOTE | 2022-11-28 09:34 | P.PCN_ITS ---
Date/Time/Diagnoses Date of procedure: 11/28/22 Time of procedure: 09:35 Pre-procedure diagnosis: 1. FORAMINAL STENOSIS WITH LE SYMPTOMS Post-procedure diagnosis: same Procedure Notes Procedure: 1. FLUOROSCOPICALLY GUIDED CONTRAST CONTROLLED TRANSFORAMINAL EPIDURAL STEROID INJECTION - LEFT L4/5 Indications: Santa is referred by Dr. Orantes for treatment of Foraminal Stenosis with Left LE Symptoms Physician: Truman Gardner Total Fluoroscopy time (seconds): 10 Total sedation minutes: 14 Complications: none Procedure in detail & Post-procedure care: FINDINGS Foraminal Nerve Root Compression secondary to disc disease and facet hypertrophy DESCRIPTION OF PROCEDURE Following review of allergy and review of potential side effects and complications, including, but not necessarily limited to, infection, allergic reaction, local tissue breakdown, stroke, temporary or permanent nerve injury, paralysis, and possible , the patient indicated that the patient understood and agreed to proceed. An informed consent document was signed by the patient, witnessed by a nurse, and placed in the patient's chart. Additionally, other treatment options including medications, modalities, and physical therapy were reviewed with the patient. After review of previous anaesthesic history and IV conscious sedation the patient was deemed safe to proceed with today?s procedure with IV conscious sedation as ASA class II designation. Safety time-out was performed to confirm patient ID, procedure to be performed and site of procedure. IV sedation was accomplished with a combination of 3mg of Versed administered by the RN after DO order, titrated to patient comfort during the course of the procedure while the patient remained responsive to all verbal commands In the prone position following sterile prep and drape of the lumbar region, the left L4/5 posterior neuroforamen was identified fluoroscopically. The skin was anesthetized via a 25-gauge 1.5-inch needle with 1% lidocaine solution. At this point, a 25-gauge 3.5-inch spinal needle was atraumatically introduced and advanced under fluoroscopic guidance through the posterior left L4/5 neuroforamen to approximately the anterior aspect of the canal. Depth was confirmed on lateral view. Following negative aspiration, injection of approximately 1.5 cc of Isovue 200 under live fluoroscopy in the AP view confirmed excellent flow along the nerve root, into the epidural space without vascular or intrathecal uptake observed Radiological data, including multiple fluoroscopic views of the lumbosacral spine, reveal a spinal needle at the left L4/5 posterior neuroforamen. Subsequent views show flow of contrast material flowing superiorly and inferiorly along the nerve root confirming epidural flow. Subsequently, a test dose of 1.5 cc of 1% lidocaine solution was administered and patient was observed for two minutes for signs or symptoms of complications, including abdominal pain, shortness of breath, bilateral upper or lower extremity weakness, nausea and vomiting, prior to steroid injection. At this point, a total of 3cc or 20mg of dexamethasone and 6mg of betamethasone was injected without incident. The procedure tolerated the procedure well without signs or symptoms of complications prior to transfer to the recovery area continued monitoring without incident. The patient was then transferred to the recovery area where they were observed for an appropriate time after the injection. The patient reported a VAS score of 7 prior to the procedure and a post- procedure VAS of 1. POST OP INSTRUCTIONS The patient was provided a Pain Log to continue to record their response to the target-specific procedure prior to follow-up visit with their referring physician. Additionally, specific post-injection care instructions and a contact number to our office were provided if concerns arise regarding possible complications associated with the procedure are suspected.
== END 2022-11-28 09:58 | disposition home or self-care (01) ==
PROVIDERS: Family Provider Family Medicine; PCP Family Medicine; Referring Provider Physical Medicine & Rehabilitation; Visit Provider Physical Medicine & Rehabilitation
DX: M48.061 Spinal stenosis, lumbar region without neurogenic claudication (principal); M51.16 Intervertebral disc disorders with radiculopathy, lumbar region
CPT/HCPCS: 64483; 99152; J0702; J1100; J2250; J3490

== ENCOUNTER → 2023-03-13 15:06 | Outpatient (CLI) | payer MEDICARE, SELFPAY ==
[2022-07-22 13:52] VITALS: BMI 31.4
--- NOTE | 2023-03-13 15:07 | DI.RAD.S_ITS ---
PROCEDURE: XR LUMBAR SPINE MIN 4V INDICATIONS: left Low back pain s/p fall TECHNIQUE: 5 views of the lumbar spine acquired, including flexion and extension views. COMPARISON: [facility], , XR LUMBAR SPINE MIN 4V, 10/25/2022, 12:26. FINDINGS: Bones: 5 nonrib-bearing vertebrae are present. There is normal bony alignment. No vertebral body compression fractures. No suspicious bony lesions. Diffuse disc space narrowing and hypertrophic facet joints noted particularly in the lower lumbar spine Soft tissues: Overlying bowel gas pattern is normal. No suspicious soft tissue calcifications. Unremarkable oblique radiographs IMPRESSION: Degenerative disc disease and arthropathy. No fracture or traumatic malalignment Approved by: Dax Nunes M.D. on 03/13/2023 at 18:25
== END ==
PROVIDERS: Family Provider Family Medicine; PCP Family Medicine; Referring Provider Physical Medicine & Rehabilitation; Visit Provider Physical Medicine & Rehabilitation
DX: M51.26 Other intervertebral disc displacement, lumbar region (principal); M51.36 Other intervertebral disc degeneration, lumbar region; M47.816 Spondylosis without myelopathy or radiculopathy, lumbar region
CPT/HCPCS: 72110

== ENCOUNTER 2023-04-10 11:32 | Emergency (ER) | payer MEDICARE, SELFPAY ==
[2022-07-22 13:52] VITALS: BMI 31.4
[2023-04-10] VITALS (14 sets, daily range): BP systolic 152–216; BP diastolic 110–140; PULSE 90–170; RESP 15–30; TEMP 36.8; O2SAT 92–98; BMI 32.0
--- NOTE | 2023-04-10 11:36 | DI.RAD.S_ITS ---
PROCEDURE: XR CHEST 1V INDICATIONS: AFIB RVR TECHNIQUE: One view of the chest was acquired. COMPARISON: [facility], CR, XR CHEST 1V, 07/14/2022, 22:15. FINDINGS: Surgical changes and devices: Left axillary clips. Lungs and pleura: Lungs are clear. No pleural effusions or pneumothorax. Mediastinum: Mediastinal contours appear normal. Heart size is normal. Bones and chest wall: No suspicious bony lesions. Overlying soft tissues appear unremarkable. IMPRESSION: No evidence acute pulmonary process. Dictated by: Aroldo Zafar M.D. on 04/10/2023 at 12:12 Approved by: Aroldo Zafar M.D. on 04/10/2023 at 12:13
[2023-04-10] MEDS: METOPROLOL TARTRATE 5 MG/5 ML INJ IV ×3 (11:49→12:05)
[2023-04-10 11:52] LABS: Hematocrit 43.9 % (36-46); Hemoglobin 15.2 g/dL (12.0-16.0); Mean Corpuscular HGB Conc 34.7 % (30-36); Mean Corpuscular Hemoglobin 35.1 PG (26-34); Platelet Count 271 X10^3/uL (150-400); Red Blood Cell Count 4.34 X10^6/uL (4.0-5.2); White Blood Cell Count 9.7 X10^3/uL (4.5-11.0)
[2023-04-10 11:53] LABS: Prothrombin Time 11.2 SECONDS (9.4-12.5)
[2023-04-10 11:54] LABS: Add Manual Diff / Slide Review YES
[2023-04-10 11:56] LABS: PTT Partial Thromboplastin Tim 30 SECONDS (25.1-36.5)
[2023-04-10 11:58] LABS: Alanine Aminotransferase 17 IU/L (<35); Albumin 4.1 g/dL (3.5-5.0); Albumin Globulin Ratio 1.3 (1.0-2.8); Alkaline Phosphatase 133 U/L (38-126); Aspartate Aminotransferase 25 IU/L (14-36); BUN Creatinine Ratio 16.7 (6-22); Blood Urea Nitrogen 13 mg/dL (7-17); Carbon Dioxide 30 mmol/L (22-32); Chloride 103 mmol/L (98-107); Estimated Glomerular Filt Rate > 60 mL/min (>60); Globulin 3.2 g/dL (1.7-4.1); Glucose 151 mg/dL (80-110); HEMOLYSIS < 15 (0-50); Potassium 3.6 mmol/L (3.4-5.1); Sodium 140 mmol/L (137-145); Total Protein 7.3 g/dL (6.3-8.2)
[2023-04-10] MEDS: LORazepam 2 MG/ML INJ 0.5 MG IV (12:03)
[2023-04-10 12:05] LABS: Neutrophils Absolute Manual 7178 /uL (3000-5900); RBC Morphology Normal Morphology; Total Cells Counted 100
--- NOTE | 2023-04-10 12:24 | ED.ARRPALP ---
HPI - Arrhythmia/Palpitations General Chief Complaint: Arrhythmia/Palpitations Stated Complaint: High Heart Rate Time Seen by Provider: 04/10/23 11:35 Source: patient Mode of arrival: Ambulatory History of Present Illness HPI narrative: 73-year-old female with history of chronic pain, hypertension presents from diagnostic imaging for tachycardia. Patient was supposed to be getting a spinal injection for her chronic pain, however when vitals were being assessed she was found to be extremely hypertensive and tachycardic. Patient states that she was stressed out because she accidentally over slept and did not want to miss her appointment. She states she feels like she is in her usual state of health. She does endorse that she is under significant stress lately because her was diagnosed with colon cancer and she is having to make a hard decision about whether or not to put her elderly dogs to sleep. She states that she takes 100 mg of metoprolol twice daily, but does state that when she is overwhelmed or stressed she will missed doses or cluster doses Related Data Home Medications Medication Instructions Recorded Confirmed cholecalciferol (vitamin D3) 25 5,000 mg PO QDAY ##0 03/08/16 03/10/23 mcg (1,000 unit) tablet (Vitamin D3) calcium carbonate 430 mg calcium 1,000 mg PO DAILY 08/26/18 03/10/23 (1,000 mg) chewable tablet multivitamin 1 cap PO DAILY 03/01/20 03/10/23 Previous Rx's Medication Instructions Recorded cetirizine 10 mg tablet (Zyrtec) 10 mg PO DAILY #90 tabs 06/12/18 chlorzoxazone 500 mg tablet See Rx Instructions .Route 07/15/22 .COMPLEX #45 tabs ondansetron 4 mg disintegrating See Rx Instructions .Route 08/13/22 tablet .COMPLEX #60 tabs duloxetine 30 mg capsule,delayed 30 mg PO DAILY #90 caps 08/14/22 release (Cymbalta) duloxetine 60 mg capsule,delayed 60 mg PO DAILY #90 caps 08/14/22 release hydrocortisone 2.5 % topical cream See Rx Instructions .Route 08/14/22 .COMPLEX #28 grams losartan 100 1 tab PO DAILY #90 tabs 08/14/22 mg-hydrochlorothiazide 12.5 mg tablet metoprolol succinate 100 mg 100 mg PO BID #180 tabs 08/14/22 tablet,extended release 24 hr nortriptyline 25 mg capsule 25 mg PO BEDTIME PRN nerve pain 08/14/22 #30 caps omeprazole 20 mg capsule,delayed See Rx Instructions .Route 08/14/22 release .COMPLEX #90 caps Disable Parking #1 ea 10/21/22 Parking Permit... #1 ea 10/22/22 celecoxib 200 mg capsule (Celebrex) 200 mg PO DAILY #90 caps 02/12/23 apixaban 5 mg tablet (Eliquis) 5 mg PO BID #30 tabs 04/10/23 Allergies Allergy/AdvReac Type Severity Reaction Status Date / Time gabapentin Allergy Severe LOOPY Verified 03/10/23 13:40 Review of Systems Review of Systems Narrative: Negative except as noted above Patient History Medical History (Updated 04/10/23 @ 13:09 by Nupur Thompson MD) Plantar fasciitis of left foot Peripheral neuropathy Microalbuminuria Cardiomyopathy due to chemotherapy Neuropathy History of antineoplastic chemotherapy Biliary colic Cholelithiasis Anemia (2016) Chicken pox (1956) Eczema (2007) Hemorrhoids (1994) Hypertension (1989) Chronic back pain (1967) Sleep apnea (2006) Depression (1999) Shoulder pain (2016) Lumbar spine pain (1967) Foot pain (2016) Breast cancer (2015) Essential hypertension (02/16/16) 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 Social History household members: spouse Smoking Status: Never smoker Smoking Status: Never smoker alcohol intake frequency: 0-2 drinks per day Substance Use Type: does not use Exam Initial Vital Signs Initial Vital Signs: Vital Signs Temperature 98.2 F 04/10/23 11:36 Pulse Rate 170 H 04/10/23 11:36 Respiratory Rate 27 H 04/10/23 11:36 Blood Pressure 216/140 H 04/10/23 11:36 Pulse Oximetry 98 04/10/23 11:36 Oxygen Delivery Method Room Air 04/10/23 11:36 Const: Awake, alert, tearful Eyes: PERRL, EOMI, conjunctiva normal ENT: Atraumatic, dentition normal, mucous membranes moist Cardiac: Tachycardia, regular rhythm RESP: unlabored, clear bilaterally, no wheezing GI: Atraumatic, soft, nontender, nondistended, no rebound, no guarding MSK: Atraumatic, full range of motion, pulses equal Skin: Warm, Dry, intact, no rashes Neuro: AO x3, CN II-XII grossly intact, moves all extremities Scores CHADS-VASc Congestive heart failure: no Hypertension: yes Age 75 years or older: no Diabetes mellitus: no Stroke, TIA, or TE: no Vascular disease: no Age 65 to 74 years: yes Sex category (female): Female CHADS-VASc Score: 3 Course Course Course Narrative: Patient presenting, found an incidental tachycardia at a rate of 180 beats per minute. Patient states that other than being very stressed and upset that she missed her injection appointment she does not feel anything abnormal. We will give IV metoprolol x3 since patient takes metoprolol at home. Orders Ordered: ED Orders 04/10/23 11:22 CBC Auto Diff [Complete Blood Count AUTO DIFF] Stat CMP [Comprehensive Metabolic Panel] Stat PT [Prothrombin Time INR] Stat PTT Partial Thromboplastin Jimbo Stat TSH [Thyroid Stimulating Hormone] Stat 04/10/23 11:36 Chest [XR chest 1V] Stat 04/10/23 11:38 EKG-12 Lead Routine Discontinued Medications Apixaban (Apixaban 5 Mg Tablet) 5 mg PO NOW ONE Stop: 04/10/23 13:06 Last Admin: 04/10/23 13:15 Dose: 5 mg Documented By: ОЛЕГ Lorazepam (Lorazepam 2 Mg/Ml Inj) 0.5 mg IV NOW ONE Stop: 04/10/23 11:59 Last Admin: 04/10/23 12:03 Dose: 0.5 mg Documented By: KF Metoprolol Succinate (Metoprolol Er 50 Mg Tablet) 100 mg PO NOW ONE Stop: 04/10/23 12:25 Last Admin: 04/10/23 12:37 Dose: 100 mg Documented By: ARIELLE Metoprolol Tartrate (Metoprolol Tartrate 5 Mg/5 Ml Inj) 5 mg IV Q5M FREDERICK Stop: 04/10/23 11:56 Last Admin: 04/10/23 12:05 Dose: 5 mg Documented By: Admin: 04/10/23 11:54 Dose: 5 mg Documented By: Admin: 04/10/23 11:49 Dose: 5 mg Documented By: ARIELLE Reevaluation(s) Reevaluation #1: Laboratory work is reviewed, there are no acute abnormalities. There is no leukocytosis, kidney function is normal, electrolytes normal. Chest x-ray shows no acute pathology. After initial dose of metoprolol patient's heart rate decreased to 150 beats per minute. After the 2nd dose of metoprolol patient's heart rate decreased to approximately 100 30 beats per minute, and it appeared to be atrial fibrillation with RVR. After the 3rd dose of metoprolol the patient's heart rate was 80-90 beats per minute, normal sinus rhythm. Patient's chads 2 Vasc score is 3 based on age, female sex, hypertension history. Patient states that she has a primary care appointment in 5 days. Due to the possibility of underlying atrial fibrillation I reached out to the patient's primary care physician Dr. Bao Orantes and informed him of the abnormal EKG. He agrees with starting Eliquis and we will make sure he follows up with the patient on Friday when her follow up appointment as scheduled. Patient was advised to monitor her vitals over the weekend and return for persistent elevated heart rate. Eliquis sent to pharmacy, initial dose given in emergency department. ED return precautions discussed at bedside. Patient expressed understanding of the plan and is in agreement at this time. All questions answered at the time of discharge. Vital Signs Vital signs: Vital Signs - 8 hr 04/10/23 11:36 04/10/23 11:41 04/10/23 11:41 Temperature 98.2 F Pulse Rate 170 H 163 H Respiratory Rate 27 H 30 H Blood Pressure 216/140 H 187/120 H Pulse Oximetry 98 95 Oxygen Delivery Method Room Air 04/10/23 11:43 04/10/23 11:43 04/10/23 11:45 Temperature Pulse Rate 165 H 160 H Respiratory Rate 28 H 28 H Blood Pressure 204/132 H Pulse Oximetry 96 93 Oxygen Delivery Method 04/10/23 11:45 04/10/23 11:51 04/10/23 11:51 Temperature Pulse Rate 146 H Respiratory Rate 15 Blood Pressure 201/136 H 173/135 H Pulse Oximetry 92 Oxygen Delivery Method 04/10/23 11:59 04/10/23 11:59 04/10/23 12:00 Temperature Pulse Rate 138 H Respiratory Rate 24 Blood Pressure 170/114 H 160/116 H Pulse Oximetry 96 Oxygen Delivery Method 04/10/23 12:00 04/10/23 12:10 04/10/23 12:10 Temperature Pulse Rate 138 H 135 H Respiratory Rate 25 H 20 Blood Pressure 152/114 H Pulse Oximetry 95 96 Oxygen Delivery Method 04/10/23 12:15 04/10/23 12:15 04/10/23 12:30 Temperature Pulse Rate 126 H 90 Respiratory Rate 23 25 H Blood Pressure 156/127 H Pulse Oximetry 94 94 Oxygen Delivery Method 04/10/23 12:30 04/10/23 12:37 04/10/23 12:45 Temperature Pulse Rate 90 Respiratory Rate Blood Pressure 171/117 H 171/110 H 176/124 H Pulse Oximetry Oxygen Delivery Method 04/10/23 12:45 04/10/23 13:00 04/10/23 13:00 Temperature Pulse Rate 92 H 92 H Respiratory Rate 22 26 H Blood Pressure 177/126 H Pulse Oximetry 96 94 Oxygen Delivery Method 04/10/23 13:15 04/10/23 13:15 Temperature Pulse Rate 91 H Respiratory Rate 25 H Blood Pressure 167/117 H Pulse Oximetry 95 Oxygen Delivery Method MDM - Arrhythmia/Palpitations Differential Diagnosis Differential diagnosis: Likely palpitations, anxiety, sinus tachycardia and artial fibrillation Lab Data 04/10/23 11:22 04/10/23 11:22 Labs: Lab Results 04/10/23 Range/Units 11:22 WBC 9.7 (4.5-11.0) X10^3/uL RBC 4.34 (4.0-5.2) X10^6/uL Hgb 15.2 (12.0-16.0) g/dL Hct 43.9 (36-46) % MCV 101.0 H (80-100) fL MCH 35.1 H (26-34) PG MCHC 34.7 (30-36) % RDW 13.0 (11.6-14.8) % Plt Count 271 (150-400) X10^3/uL Neut % (Auto) Not Reportable Lymph % (Auto) Not Reportable [place] % (Auto) Not Reportable Eos % (Auto) Not Reportable Baso % (Auto) Not Reportable Lymph # (Auto) Not Reportable [place] # (Auto) Not Reportable Baso # (Auto) Not Reportable Total Counted 100 Seg Neutrophils % 74.0 H (38-70) % Lymphocytes % (Manual) 15.0 L (25-45) % Monocytes % (Manual) 6.0 (2-11) % Eosinophils % (Manual) 4.0 (2-4) % Basophils % (Manual) 1.0 (0-1) % Neutrophils # (Manual) 7178 H (3039-9786) /uL RBC Morphology Normal morphology PT 11.2 (9.4-12.5) SECONDS INR 1.0 (0.9-1.3) APTT 30 (25.1-36.5) SECONDS Sodium 140 (137-145) mmol/L Potassium 3.6 (3.4-5.1) mmol/L Chloride 103 (98-107) mmol/L Carbon Dioxide 30 (22-32) mmol/L BUN 13 (7-17) mg/dL Creatinine 0.78 (0.52-1.04) mg/dL Estimated GFR > 60 (>60) mL/min BUN/Creatinine Ratio 16.7 (6-22) Glucose 151 H (80-110) mg/dL Calcium 11.0 H (8.4-10.2) mg/dL Total Bilirubin 1.0 (0.2-1.3) mg/dL AST 25 (14-36) IU/L ALT 17 (<35) IU/L Alkaline Phosphatase 133 H (38-126) U/L Total Protein 7.3 (6.3-8.2) g/dL Albumin 4.1 (3.5-5.0) g/dL Globulin 3.2 (1.7-4.1) g/dL Albumin/Globulin Ratio 1.3 (1.0-2.8) TSH 1.18 (0.47-4.68) uIU/mL ECG Data Interpretation: EKG1: Narrow complex Sinus tachycardia rate of 163 beats per minute. Normal axis, no ST T wave changes EKG2: Atrial fibrillation rate of 129 beats per minute. Rapid ventricular response. Normal axis, no ST T wave changes, no STEMI EKG3: Normal sinus rhythm, rate 90 beats per minute. No ST T wave changes, no STEMI, normal axis Critical Care Time Critical Care Time Critical Care Time: Yes Total Critical Care Time: 39 Attestation: Coordination with primary care, correction of significant tachycardia, frequent hemodynamic reassessments. Discharge Plan Departure Patient Disposition: Home Clinical Impression: Tachycardia, Hypertension Instructions: DI for Atrial Fibrillation Prescriptions: New Eliquis 5 mg tablet 5 mg PO BID Qty: 30 0RF No Action cholecalciferol (vitamin D3) [Vitamin D3] 1,000 UNIT tablet 5,000 mg PO QDAY Qty: 0 chlorzoxazone 500 mg tablet See Rx Instructions .ROUTE .COMPLEX Qty: 45 0RF Dose Instruction: take 0.5 tablet by mouth four times a day Rx Instructions: take 0.5 tablet by mouth four times a day (DME) Disable Parking See Rx Instructions .Route .MEDSUPPLY Qty: 1 0RF Rx Instructions: I find this patient to be medically disabled and qualified for disabled parking as indicated and sgined on the accompanying disable parking application for individuals (DME) Parking Permit... See Rx Instructions .ROUTE .MEDSUPPLY Qty: 1 0RF Rx Instructions: I find this patient to be medically disabled and qualified for Disabled Parking as indicated , and signed, on the Accompanying Disabled Parking Application for Individuals. celecoxib [Celebrex] 200 mg capsule 200 mg PO DAILY Qty: 90 1RF calcium carbonate 430 mg calcium (1,000 mg) tablet,chewable 1,000 mg PO DAILY cetirizine [Zyrtec] 10 mg tablet 10 mg PO DAILY Qty: 90 3RF duloxetine [Cymbalta] 30 mg capsule,delayed release(DR/EC) 30 mg PO DAILY Qty: 90 3RF Rx Instructions: take with 60mg cap duloxetine 60 mg capsule,delayed release(DR/EC) 60 mg PO DAILY Qty: 90 3RF Rx Instructions: Take with 30mg cap losartan-hydrochlorothiazide 100-12.5 mg tablet 1 tab PO DAILY Qty: 90 3RF metoprolol succinate 100 mg tablet extended release 24 hr 100 mg PO BID Qty: 180 3RF nortriptyline 25 mg capsule 25 mg PO BEDTIME PRN (Reason: nerve pain) Qty: 30 0RF omeprazole 20 mg capsule,delayed release(DR/EC) See Rx Instructions .ROUTE .COMPLEX Qty: 90 3RF Dose Instruction: take 1 capsule by mouth daily Rx Instructions: take 1 capsule by mouth daily hydrocortisone 2.5 % cream See Rx Instructions .ROUTE .COMPLEX Qty: 28 3RF Dose Instruction: apply to affected area twice a day if needed for rash Rx Instructions: apply to affected area twice a day if needed for rash multivitamin Capsule 1 cap PO DAILY ondansetron 4 mg tablet,disintegrating See Rx Instructions .ROUTE .COMPLEX Qty: 60 0RF Dose Instruction: dissolve 1 tablet ON TONGUE every 6 hours if needed for nausea OR vomiting Rx Instructions: dissolve 1 tablet ON TONGUE every 6 hours if needed for nausea OR vomiting Referrals: Bao Orantes MD [Primary Care Provider] - Stand Alone Forms: Patient Portal/API
[2023-04-10 12:36] LABS: Thyroid Stimulating Hormone 1.18 uIU/mL (0.47-4.68)
[2023-04-10] MEDS: METOPROLOL ER 50 MG TABLET 100 MG PO (12:37)
[2023-04-10] MEDS: APIXABAN 5 MG TABLET PO (13:15)
== END 2023-04-10 13:23 | disposition home or self-care (01) ==
PROVIDERS: Emergency Provider Emergency Medicine; Family Provider Family Medicine; PCP Family Medicine
DX: R00.0 Tachycardia, unspecified (principal); I10 Essential (primary) hypertension; I48.91 Unspecified atrial fibrillation
CPT/HCPCS: 71045; 80053; 84443; 85007; 85025; 85610; 85730; 93005; 96374; 96375; 99284; 99285; 99291; J2060

== ENCOUNTER 2023-07-22 15:28 | Outpatient (CLI) | payer OTHER, SELFPAY ==
[2022-07-22 13:52] VITALS: BMI 31.4
[2023-07-22] VITALS (10 sets, daily range): BP systolic 131–188; BP diastolic 81–114; PULSE 67–81; RESP 16–25; TEMP 36.6; O2SAT 94–100
--- NOTE | 2023-07-22 16:00 | DI.RAD.S_ITS ---
PROCEDURE: PAIN L/S TRANSFORAMINAL INJECT INDICATIONS: STENOSIS COMPARISON: [facility], , PAIN L/S TRANSFORAMINAL INJECT, 11/28/2022, 9:22. FINDINGS: Fluoroscopic spot filming was performed to verify placement of spinal needles at the left L4-5 level(s), as labeled on the films. Appropriate location(s) of the needle tip(s) was confirmed by injection of iodinated contrast. IMPRESSION: Fluoroscopic guidance utilized for a left L4-5 epidural steroid injection. Dictated by: Neville Che M.D. on 07/23/2023 at 10:13 Approved by: Neville Che M.D. on 07/23/2023 at 10:13
[2023-07-22] MEDS: MIDAZOLAM 2 MG/2 ML VIAL IV (16:51)
[2023-07-22] MEDS: iopamidoL 15 ML VIAL 3 ML INJ (16:57)
[2023-07-22] MEDS: DEXAMETHASONE 10 MG/ML VIAL INJ (16:57)
[2023-07-22] MEDS: BETAMETHASONE 30 MG/5 ML MDV 6 MG INJ (16:58)
[2023-07-22] MEDS: BUPIVACAINE 0.25% (PF) VIAL 2 ML INJ (16:58)
--- NOTE | 2023-07-22 17:11 | P.PCN_ITS ---
Date/Time/Diagnoses Date of procedure: 07/22/23 Time of procedure: 17:11 Pre-procedure diagnosis: 1. FORAMINAL STENOSIS WITH LE SYMPTOMS Post-procedure diagnosis: same Procedure Notes Procedure: 1. FLUOROSCOPICALLY GUIDED CONTRAST CONTROLLED TRANSFORAMINAL EPIDURAL STEROID INJECTION - LEFT L4/5 Indications: Santa is referred by Dr. Orantes for treatment of Foraminal Stenosis with Left LE Symptoms Physician: Truman Gardner Total Fluoroscopy time (seconds): 11 Total sedation minutes: 15 Complications: none Procedure in detail & Post-procedure care: FINDINGS Foraminal Nerve Root Compression secondary to disc disease and facet hypertrophy DESCRIPTION OF PROCEDURE Following review of allergy and review of potential side effects and complications, including, but not necessarily limited to, infection, allergic reaction, local tissue breakdown, stroke, temporary or permanent nerve injury, paralysis, and possible , the patient indicated that the patient understood and agreed to proceed. An informed consent document was signed by the patient, witnessed by a nurse, and placed in the patient's chart. Additionally, other treatment options including medications, modalities, and physical therapy were reviewed with the patient. After review of previous anaesthesic history and IV conscious sedation the patient was deemed safe to proceed with today?s procedure with IV conscious sedation as ASA class II designation. Safety time-out was performed to confirm patient ID, procedure to be performed and site of procedure. IV sedation was accomplished with a combination of 2mg of Versed administered by the RN after DO order, titrated to patient comfort during the course of the procedure while the patient remained responsive to all verbal commands In the prone position following sterile prep and drape of the lumbar region, the left L4/5 posterior neuroforamen was identified fluoroscopically. The skin was anesthetized via a 25-gauge 1.5-inch needle with 1% lidocaine solution. At this point, a 25-gauge 3.5-inch spinal needle was atraumatically introduced and advanced under fluoroscopic guidance through the posterior left L4/5 neuroforamen to approximately the anterior aspect of the canal. Depth was confirmed on lateral view. Following negative aspiration, injection of approximately 1.5 cc of Isovue 200 under live fluoroscopy in the AP view confirmed excellent flow along the nerve root, into the epidural space without vascular or intrathecal uptake observed Radiological data, including multiple fluoroscopic views of the lumbosacral spine, reveal a spinal needle at the left L4/5 posterior neuroforamen. Subsequent views show flow of contrast material flowing superiorly and inferiorly along the nerve root confirming epidural flow. Subsequently, a test dose of 1.5 cc of 1% lidocaine solution was administered and patient was observed for two minutes for signs or symptoms of complications, including abdominal pain, shortness of breath, bilateral upper or lower extremity weakness, nausea and vomiting, prior to steroid injection. At this point, a total of 2cc or 10mg of dexamethasone and 6mg of betamethasone was injected without incident. The procedure tolerated the procedure well without signs or symptoms of complications prior to transfer to the recovery area continued monitoring without incident. The patient was then transferred to the recovery area where they were observed for an appropriate time after the injection. The patient reported a VAS score of 7 prior to the procedure and a post- procedure VAS of 0. POST OP INSTRUCTIONS The patient was provided a Pain Log to continue to record their response to the target-specific procedure prior to follow-up visit with their referring physician. Additionally, specific post-injection care instructions and a contact number to our office were provided if concerns arise regarding possible complications associated with the procedure are suspected.
--- NOTE | 2023-07-22 18:00 | PC.NURSE ---
Patient received at 1715 post injection with profound numbness to BLE. 3 person max assist up from wheelchair to recliner. Dr. Gardner at chairside shortly after speaking with patient. 1800 stood with [address] Gardner, able to stand and march in place but reports still feeling some numbness to her buttocks and calves but it is improving quickly. Care ongoing.
--- NOTE | 2023-07-22 18:30 | PC.NURSE ---
Dr. Gardner remained at chairside. Patient stood with 2 person stand by assist and was able to stand with baseline strength and take multiple steps. Cleared by Dr. Gardner for discharge. Patient also reports feeling she is back to her baseline mobility status and safe to go home.
== END 2023-07-22 18:42 | disposition home or self-care (01) ==
LOC: RAD 15:28
PROVIDERS: PCP Family Medicine; Referring Provider Physical Medicine & Rehabilitation; Visit Provider Physical Medicine & Rehabilitation
DX: M48.061 Spinal stenosis, lumbar region without neurogenic claudication (principal); M51.16 Intervertebral disc disorders with radiculopathy, lumbar region; M47.26 Other spondylosis with radiculopathy, lumbar region
CPT/HCPCS: 64483; 99152; J0702; J1100; J2250; J3490

== ENCOUNTER → 2023-08-08 09:57 | Outpatient (CLI) | payer MEDICARE, SELFPAY ==
[2022-07-22 13:52] VITALS: BMI 31.4
--- NOTE | 2023-08-08 | DI.MG.S_ITS ---
UNILATERAL RIGHT DIGITAL SCREENING MAMMOGRAM 3D/2D WITH CAD: 08/08/2023 CLINICAL: Routine screening. Comparison is made to exams dated: 08/06/2022 mammogram, 04/18/2021 mammogram, 03/31/2020 mammogram, and 03/30/2019 mammogram - [facility]. There are scattered areas of fibroglandular density in the right breast (category b / 25%-50% glandular tissue). Current study was also evaluated with a Computer Aided Detection (CAD) system. No significant masses, calcifications, or other findings are seen in the breast. There has been no significant interval change. IMPRESSION: NEGATIVE There is no mammographic evidence of malignancy. A 1 year screening mammogram is recommended. This exam was interpreted at Station ID: [id number]. NOTE: For mammograms, a report in lay terms will be sent to the patient. Approximately 15% of breast malignancies will not be visualized mammographically. In the management of a palpable breast mass, a negative mammogram must not discourage biopsy of a clinically suspicious lesion. Electronically Signed By: Brissa waters/yony:08/08/2023 17:24:53 copy to: RICA WHITFIELD letter sent: Normal Exam ACR BI-RADS Category 1: Negative [id number]
== END ==
PROVIDERS: PCP Family Medicine; Referring Provider Internal Medicine Hematology & Oncology; Visit Provider Internal Medicine Hematology & Oncology
DX: Z12.31 Encounter for screening mammogram for malignant neoplasm of breast (principal); R92.323 Mammographic fibroglandular density, bilateral breasts
CPT/HCPCS: 77063; 77067

== ENCOUNTER → 2023-09-27 09:05 | Outpatient (CLI) | payer MEDICARE, SELFPAY ==
[2022-07-22 13:52] VITALS: BMI 31.4
--- NOTE | 2023-09-27 09:08 | DI.RAD.S_ITS ---
PROCEDURE: XR WRIST RT MIN 3V INDICATIONS: right wrist nodule TECHNIQUE: For views of the wrist were acquired. COMPARISON: [facility], CR, XR WRIST LT MIN 3V, 07/23/2018, 16:33. FINDINGS: Bones: No fractures or dislocations. No suspicious bony lesions. Soft tissues: No suspicious soft tissue calcifications. Mild soft tissue prominence along the radial superficial soft tissues near the radial head measuring 0.9 centimeters. IMPRESSION: Soft tissue prominence without underlying osseous changes. No acute bony abnormality. Dictated by: Ernie Vargas M.D. on 09/27/2023 at 8:23 Approved by: Ernie Vargas M.D. on 09/27/2023 at 8:25
[2023-09-27 10:07] LABS: Add Manual Diff / Slide Review NO; Basophils Absolute Auto 0 /uL (0-100); Basophils Percent Auto 0.5 % (0-2); Eosinophils Absolute Auto 200 /uL (0-450); Eosinophils Percent Auto 3.7 % (2-4); Hematocrit 38.5 % (36-46); Hemoglobin 13.4 g/dL (12.0-16.0); Lymphocytes Absolute Auto 1800 /uL (1100-4500); Lymphocytes Percent Auto 26.7 % (25-40); Mean Corpuscular HGB Conc 34.9 % (30-36); Mean Corpuscular Hemoglobin 35.5 PG (26-34); Mean Corpuscular Volume 101.8 fL (80-100); Monocytes Absolute Auto 900 /uL (0-900); Monocytes Percent Auto 13.9 % (3-14); Neutrophils Absolute Auto 3700 /uL (1500-7000); Neutrophils Percent Auto 55.2 % (50-75); Platelet Count 363 X10^3/uL (150-400); Red Blood Cell Count 3.78 X10^6/uL (4.0-5.2); Red Cell Distribution Width 12.4 % (11.6-14.8); White Blood Cell Count 6.6 X10^3/uL (4.5-11.0)
[2023-09-27 10:31] LABS: Cholesterol 181 mg/dL (140-199); Creatinine Urine Random 169.42 mg/dL; HDL Cholesterol 46 mg/dL (40-60); LDL Cholesterol Calculated 96 mg/dL (<100); Triglycerides 194 mg/dL (35-150)
[2023-09-27 10:35] LABS: Microalbumin Urine Random 0.8 mg/dL (0-1.6)
[2023-09-27 11:03] LABS: TSH w/ Reflex to FT4 1.17 uIU/mL (0.47-4.68)
[2023-09-28 08:36] LABS: Apolipoprotein B 102 mg/dL (<90)
[2023-09-30 14:39] LABS: Calcium 9.6 mg/dL (8.7-10.3); Parathyroid Hormone, Intact 34 pg/mL (15-65)
== END ==
PROVIDERS: Nurse Practitioner Family; PCP Family Medicine; Referring Provider Family Medicine; Visit Provider Family Medicine
DX: I10 Essential (primary) hypertension (principal); M21.931 Unspecified acquired deformity of right forearm; E78.2 Mixed hyperlipidemia; R80.9 Proteinuria, unspecified; E83.52 Hypercalcemia; I48.0 Paroxysmal atrial fibrillation; R29.6 Repeated falls
CPT/HCPCS: 36415; 73110; 80061; 82043; 82172; 82310; 82570; 83970; 84443; 85025

== ENCOUNTER 2023-10-07 08:35 | Outpatient (CLI) | payer MEDICARE, SELFPAY ==
[2022-07-22 13:52] VITALS: BMI 31.4
[2023-10-07] VITALS (8 sets, daily range): BP systolic 114–148; BP diastolic 56–80; PULSE 70–72; RESP 16–19; TEMP 36.3; O2SAT 96–99
--- NOTE | 2023-10-07 09:15 | DI.RAD.S_ITS ---
PROCEDURE: PAIN L/SI FACET INJ/BLK 1STL INDICATIONS: LEFT L4, L5 ,S1 MBB-LA COMPARISON: None. FINDINGS: Fluoroscopic spot filming was performed to verify placement of spinal needles at the left L4, L5, and S1 levels, as labeled on the films. Appropriate locations of the needle tips were confirmed by injection of iodinated contrast. IMPRESSION: Intraprocedural examination demonstrates appropriate needle positioning. Approved by: Sunil Chavez M.D. on 10/07/2023 at 14:18
[2023-10-07] MEDS: MIDAZOLAM 2 MG/2 ML VIAL IV (09:28)
[2023-10-07] MEDS: iopamidoL 15 ML VIAL 3 ML INJ (09:32)
[2023-10-07] MEDS: BUPIVACAINE 0.5% (PF) 10 ML VIAL 2 ML INJ (09:33)
--- NOTE | 2023-10-07 09:52 | PM.PROC.IR.1 ---
Date/Time/Diagnoses Date of procedure: 10/07/23 Time of procedure: 09:52 Pre-procedure diagnosis: 1. FACET ARTHROPATHY Post-procedure diagnosis: same Procedure Notes Procedure: 1. Left L4, L5 and S1 MB BLOCKS LA Indications: Snata is referred by Dr. Orantes for treatment of Left Axial LBP. Physician: Truman Gardner Total Fluoroscopy time (seconds): 6 Total sedation minutes: 10 Complications: none Procedure in detail & Post-procedure care: DESCRIPTION OF PROCEDURE Fluoroscopically guided, contrast-controlled left L4, L5 and S1 medial branch blocks with 0.5cc of 0.5% Marcaine. Following review of allergy and review of potential side effects and complications, including, but not necessarily limited to, infection, allergic reaction, local tissue breakdown, nerve injury, paralysis, stroke and possible , the patient indicated that the patient understood and agreed to proceed. An informed consent document was signed by the patient, witnessed by a nurse, and placed in the patient's chart. After review of previous anaesthesic history and IV conscious sedation the patient was deemed safe to proceed with today?s procedure with IV conscious sedation as ASA class II designation. Safety time-out was performed to confirm patient ID, procedure to be performed and site of procedure. IV sedation was accomplished with a combination of 2mg of Versed was administered by the RN after DO order, titrated to patient comfort during the course of the procedure while the patient remained responsive to all verbal commands. In the prone position, following sterile prep and drape of the lumbar region, the left L4, L5 and S1 anatomical location of the medial branch of the dorsal ramus was identified fluoroscopically. Subsequently an anesthetic skin wheal using 1% lidocaine solution was initiated at each of the anatomical spots. Subsequently then a 22-gauge 3.5-inch spinal needle was atraumatically introduced and advanced under fluoroscopic guidance at each of the corresponding sites at the left L4, L5 and S1 MB. After negative aspiration, 0.2cc of Isovue 200 was injected, confirming placement without vascular or intrathecal uptake. Subsequently then 0.5cc of 0.5% Marcaine solution was injected at each of the corresponding sites at the left L4, L5 and S1 medial branch locations. The patient tolerated the procedure well without signs or symptoms of complications. The patient tolerated the procedure well without signs or symptoms of complications prior to transfer to the recovery area continued monitoring without incident. Post-procedure, the patient was monitored initiating provocative activities to measure the amount of relief from block of the facetogenic pain. The patient reported a VAS of 7 prior to the procedure and a post-procedure VAS of 1. It has been a pleasure to assist in the diagnostic and therapeutic care of your patient. POST OP INSTRUCTIONS The patient was provided with a Pain Log to complete over the next several hours and subsequent days prior to the patient's follow up with the ordering physician. If the patient has footwear machinery instructor relief to the solution applied, then they may be a candidate for medial branch rhizotomy. The patient is aware, was provided, once again, with a Pain Log and will follow up with the referring physician for review and clinical correlation.
--- NOTE | 2023-10-07 10:20 | PC.NURSE ---
1008- patient stood at chair to d/c home and felt dizzy. Had patient sit back in chair and monitor a little longer. States I normally have some dizziness when I stand but this is more then my normal. Dizziness resolved when sitting. 1020- Stood patient again and states I feel better. Denies any dizziness at this time.
== END 2023-10-07 10:20 | disposition home or self-care (01) ==
PROVIDERS: PCP Family Medicine; Referring Provider Physical Medicine & Rehabilitation; Visit Provider Physical Medicine & Rehabilitation
DX: M47.817 Spondylosis without myelopathy or radiculopathy, lumbosacral region (principal); M47.816 Spondylosis without myelopathy or radiculopathy, lumbar region
CPT/HCPCS: 64493; 64494; 99152; J2250

== ENCOUNTER 2023-10-30 08:04 | Outpatient (CLI) | payer MEDICARE, SELFPAY ==
[2022-07-22 13:52] VITALS: BMI 31.4
[2023-10-30] VITALS (7 sets, daily range): BP systolic 138–165; BP diastolic 80–93; PULSE 75–89; RESP 16–23; TEMP 36.6; O2SAT 96–99
--- NOTE | 2023-10-30 08:45 | DI.RAD.S_ITS ---
PROCEDURE: PAIN L/SI FACET INJ/BLK 1STL INDICATIONS: Left L4-L5 and S1 medial branch block SA COMPARISON: [facility], , PAIN L/SI FACET INJ/BLK 1STL, 10/07/2023, 9:32. FINDINGS: Fluoroscopic spot filming was performed to verify placement of spinal needles at the left L4, L5, and S1 levels, as labeled on the films. Appropriate locations of the needle tips were confirmed by injection of iodinated contrast. IMPRESSION: Intraprocedural examination demonstrates appropriate needle positioning. Approved by: Sunil Chavez M.D. on 10/30/2023 at 16:49
[2023-10-30] MEDS: MIDAZOLAM 2 MG/2 ML VIAL IV (09:25)
[2023-10-30] MEDS: iopamidoL 15 ML VIAL 3 ML INJ (09:29)
[2023-10-30] MEDS: LIDOCAINE 2% INJ MDV 20ML 5 ML INJ (09:30)
--- NOTE | 2023-10-30 09:44 | P.PCN_ITS ---
Date/Time/Diagnoses Date of procedure: 10/30/23 Time of procedure: 09:44 Pre-procedure diagnosis: FACET ARTHROPATHY Post-procedure diagnosis: same Procedure Notes Procedure: 1. Left L4, L5 and S1 MB BLOCKS SA Indications: Santa is referred by Dr. Orantes for treatment of Left Axial LBP. Physician: Truman Gardner Total Fluoroscopy time (seconds): 6 Total sedation minutes: 11 Complications: none Procedure in detail & Post-procedure care: DESCRIPTION OF PROCEDURE Fluoroscopically guided, contrast-controlled left L4, L5 and S1 medial branch blocks with 0.5cc of 2% Lidocaine. Following review of allergy and review of potential side effects and complications, including, but not necessarily limited to, infection, allergic reaction, local tissue breakdown, nerve injury, paralysis, stroke and possible , the patient indicated that the patient understood and agreed to proceed. An informed consent document was signed by the patient, witnessed by a nurse, and placed in the patient's chart. After review of previous anaesthesic history and IV conscious sedation the patient was deemed safe to proceed with today?s procedure with IV conscious sedation as ASA class II designation. Safety time-out was performed to confirm patient ID, procedure to be performed and site of procedure. IV sedation was accomplished with a combination of 2mg of Versed was administered by the RN after DO order, titrated to patient comfort during the course of the procedure while the patient remained responsive to all verbal commands. In the prone position, following sterile prep and drape of the lumbar region, the left L4, L5 and S1 anatomical location of the medial branch of the dorsal ramus was identified fluoroscopically. Subsequently an anesthetic skin wheal using 1% lidocaine solution was initiated at each of the anatomical spots. Subsequently then a 22-gauge 3.5-inch spinal needle was atraumatically introduced and advanced under fluoroscopic guidance at each of the corresponding sites at the left L4, L5 and S1 MB. After negative aspiration, 0.2cc of Isovue 200 was injected, confirming placement without vascular or intrathecal uptake. Subsequently then 0.5cc of 2% Lidocaine solution was injected at each of the corresponding sites at the left L4, L5 and S1 medial branch locations. The patient tolerated the procedure well without signs or symptoms of complications. The patient tolerated the procedure well without signs or symptoms of complications prior to transfer to the recovery area continued monitoring without incident. Post-procedure, the patient was monitored initiating provocative activities to measure the amount of relief from block of the facetogenic pain. The patient reported a VAS of 7 prior to the procedure and a post-procedure VAS of 1. It has been a pleasure to assist in the diagnostic and therapeutic care of your patient. POST OP INSTRUCTIONS The patient was provided with a Pain Log to complete over the next several hours and subsequent days prior to the patient's follow up with the ordering physician. If the patient has mess attendant crew relief to the solution applied, then they may be a candidate for medial branch rhizotomy. The patient is aware, was provided, once again, with a Pain Log and will follow up with the referring physician for review and clinical correlation.
== END 2023-10-30 10:00 | disposition home or self-care (01) ==
LOC: RAD 08:05
PROVIDERS: PCP Family Medicine; Referring Provider Physical Medicine & Rehabilitation; Visit Provider Physical Medicine & Rehabilitation
DX: M47.817 Spondylosis without myelopathy or radiculopathy, lumbosacral region (principal); M47.816 Spondylosis without myelopathy or radiculopathy, lumbar region
CPT/HCPCS: 64493; 64494; 99152; J2250

== ENCOUNTER 2023-12-11 10:12 | Outpatient (CLI) | payer MEDICARE, SELFPAY ==
[2022-07-22 13:52] VITALS: BMI 31.4
[2023-12-11] VITALS (9 sets, daily range): BP systolic 115–165; BP diastolic 71–99; PULSE 76–841; RESP 15–21; TEMP 36.2; O2SAT 98–100
--- NOTE | 2023-12-11 11:15 | DI.RAD.S_ITS ---
PROCEDURE: PAIN L/S MED/LAT N RFA INDICATIONS: Left L4-L5 and S1 medial branch RFA COMPARISON: None. FINDINGS: Fluoroscopic spot filming was performed to verify placement of spinal needles at the left L4-S1 level(s), as labeled on the films. Appropriate location(s) of the needle tip(s) was confirmed by injection of iodinated contrast. IMPRESSION: Intraoperative guidance provided. Dictated by: Danielito Pacheco M.D. on 12/11/2023 at 18:20 Approved by: Danielito Pacheco M.D. on 12/11/2023 at 18:21
[2023-12-11] MEDS: MIDAZOLAM 2 MG/2 ML VIAL IV (11:59)
[2023-12-11] MEDS: LIDOCAINE 1% 20 ML 5 ML INJ (12:03)
[2023-12-11] MEDS: BUPIVACAINE 0.5% (PF) 10 ML VIAL 5 ML INJ (12:04)
--- NOTE | 2023-12-11 12:25 | P.PCN_ITS ---
Date/Time/Diagnoses Date of procedure: 12/11/23 Time of procedure: 12:26 Pre-procedure diagnosis: 1. RECALCITRANT FACET ARTHROPATHY Post-procedure diagnosis: same Procedure Notes Procedure: 1. LEFT L4 AND L5 MEDIAL BRANCH RADIOFREQUENCY NEUROTOMY AND LEFT S1 DORSAL RAMUS RADIOFREQUENCY NEUROTOMY, Indications: Santa is referred by Dr. Orantes for treatment of facet arthropathy. Physician: Truman Gardner Total Fluoroscopy time (seconds): 11 Total sedation minutes: 27 Complications: none Procedure in detail & Post-procedure care: DESCRIPTION OF PROCEDURE Left L4 and L5 medial branch radiofrequency neurotomy and left S1 dorsal ramus branch radiofrequency neurotomy under fluoroscopy with conscious sedation. The patient is well known to this clinic having undergone previous facet injections with good but temporary relief. The patient has experienced appropriate, concordant relief with previous facet and median branch blocks but the patient's pain has been recalcitrant to further conservative measures. Therefore, based upon the patient's relief and persistent symptoms, the patient is considered an appropriate candidate for facet rhizotomy. All of the patient's questions regarding the risks versus benefits of the procedure, including, but not limited to, bleeding, infection, temporary as well as lasting nerve injury, paralysis, stroke, and , as well treatment alternatives were answered to satisfaction. After obtaining informed consent, denial of pertinent drug allergies, as well as being made aware of the potential risks of bleeding, infection, spinal cord trauma, paralysis, temporary and permanent nerve damage, seizure, stroke, and possible , the patient was brought to the fluoroscopy suite and positioned prone on the fluoroscopy table. The lumbar region was prepped with Betadine and covered with a fenestrated drape in the usual sterile fashion. Appropriate monitors applied including pulse oximeter, pulse, and blood pressure for regular monitoring throughout the procedure. IV sedation was accomplished with a combination of 2mg of Versed titrated to patient comfort during the course of the procedure while the patient remained responsive to all verbal commands. After local infiltration using 1% lidocaine, under fluoroscopic guidance, a 10- cm RF insulated needle with a 10-mm active tip was positioned parallel to the junction of the left sacral ala and the superior articulating process where the S1 dorsal ramus resides. Needle placement was confirmed with sensory stimulation at 50 Hz, with motor stimulation of .5v on the left which produced local stimulation without radicular component. The stimulation was then increased to 2v with, once again, only local multifidus stimulation without radicular component. This was then followed by two discreet lesions performed at 80 degrees Celsius for 90 seconds each. The needle was then removed and the identical procedure was performed along the length of the left L5 medial branch with motor stimulation at .7v on the left. The identical procedure was once again performed along the length of the left L4 medial branch with motor stimulation of .5v on the left. The patient tolerated the procedure well without signs or symptoms of complications prior to transfer to the recovery area continued monitoring without incident. The patient was then transferred to the recovery area where they were observed for an appropriate period of time after the injection. The patient was then transferred to the recovery area where they were observed for an appropriate period of time after the injection. The patient reported a VAS score of 9 prior to the procedure and a post- procedure VAS of 0. POST OP INSTRUCTIONS The patient was provided a Pain Log to continue to record the patient's response to the target-specific procedure prior to the patient's follow-up visit with the referring physician. Additionally, specific post-injection care instructions and a contact number to our office were provided if concerns arise regarding possible complications associated with the procedure are suspected.
== END 2023-12-11 12:38 | disposition home or self-care (01) ==
PROVIDERS: PCP Family Medicine; Referring Provider Physical Medicine & Rehabilitation; Visit Provider Physical Medicine & Rehabilitation
DX: M47.816 Spondylosis without myelopathy or radiculopathy, lumbar region (principal); M47.817 Spondylosis without myelopathy or radiculopathy, lumbosacral region
CPT/HCPCS: 64635; 64636; 99152; 99153; J2250

== ENCOUNTER → 2024-01-28 14:53 | Outpatient (CLI) | payer MEDICARE, SELFPAY ==
[2022-07-22 13:52] VITALS: BMI 31.4
[2024-01-28 15:48] LABS: Influenza A - CEPHEID Flu A NEGATIVE (NEGATIVE); Influenza B - CEPHEID Flu B NEGATIVE (NEGATIVE); Respiratory Syncytial Virus Negative (Negative)
[2024-01-28 15:58] LABS: COVID-19 CEPHEID 4-PLEX PCR POSITIVE (Negative)
== END ==
PROVIDERS: PCP Family Medicine; Referring Provider Nurse Practitioner Family; Visit Provider Nurse Practitioner Family
DX: R06.02 Shortness of breath (principal); Z20.822 Contact with and (suspected) exposure to COVID-19
CPT/HCPCS: 0241U

== ENCOUNTER 2024-01-28 15:34 | Emergency (ER) | payer MEDICARE, SELFPAY ==
[2022-07-22 13:52] VITALS: BMI 31.4
[2024-01-28 15:46] VITALS: BP 137/90; PULSE 83; RESP 16; TEMP 36.8; O2SAT 98; BMI 31.8
--- NOTE | 2024-01-28 15:53 | DI.RAD.S_ITS ---
PROCEDURE: XR CHEST 1V INDICATIONS: SOB/cough/covid r/o PNA TECHNIQUE: One view of the chest was acquired. COMPARISON: [facility], CR, XR CHEST 1V, 04/10/2023, 11:44. FINDINGS: Surgical changes and devices: Surgical clips left axilla Lungs and pleura: Lungs are clear. No pleural effusions or pneumothorax. Mediastinum: Mediastinal contours appear normal. Heart size is normal. Bones and chest wall: No suspicious bony lesions. Overlying soft tissues appear unremarkable. IMPRESSION: No acute cardiopulmonary abnormality is seen. Approved by: Dax Nunes M.D. on 01/28/2024 at 16:56
--- NOTE | 2024-01-28 16:17 | ED.URI ---
HPI - URI/Sore Throat <Carolyne Smallwood PA-C - Last Filed: 01/28/24 18:01> General Chief Complaint: Upper Respiratory Symptoms Stated Complaint: WIC; SoB, Poss COVID Time Seen by Provider: 01/28/24 16:04 History of Present Illness HPI Narrative: Patient is a very pleasant 74-year-old female presents to the emergency room department today after being seen evaluated in the walk-in clinic. She presented to the walk-in clinic for cough, cold, congestion. Her recently had COVID and she thinks that she has COVID. She has been attempting to take care of herself with [id number] supportive therapy but today she was attempting to do just basic things at home and just felt really exhausted. When she presented to the walk-in clinic she was extremely tachycardic and she had some mild shortness of breath so they sent her to the emergency room department for further evaluation. They did swab her for COVID which unfortunately came back positive. Current at this time the patient is resting comfortably. Her heart rate is now returned to baseline. Her COVID test has tested positive. Chest x-ray is pending. Related Data Home Medications Medication Instructions Recorded Confirmed cholecalciferol (vitamin D3) 25 5,000 mg PO QDAY ##0 03/08/16 01/28/24 mcg (1,000 unit) tablet (Vitamin D3) calcium carbonate 1,000 mg PO DAILY 08/26/18 01/28/24 multivitamin 1 cap PO DAILY 03/01/20 01/28/24 losartan 100 1 tab PO DAILY 08/28/23 01/28/24 mg-hydrochlorothiazide 25 mg tablet Previous Rx's Medication Instructions Recorded cetirizine 10 mg tablet (Zyrtec) 10 mg PO DAILY #90 tabs 06/12/18 chlorzoxazone 500 mg tablet See Rx Instructions .Route 07/15/22 .COMPLEX #45 tabs ondansetron 4 mg disintegrating See Rx Instructions .Route 08/13/22 tablet .COMPLEX #60 tabs hydrocortisone 2.5 % topical cream See Rx Instructions .Route 08/14/22 .COMPLEX #28 grams nortriptyline 25 mg capsule 25 mg PO BEDTIME PRN nerve pain 08/14/22 #30 caps Disable Parking #1 ea 10/21/22 Parking Permit... #1 ea 10/22/22 apixaban 5 mg tablet (Eliquis) 5 mg PO BID #180 tabs 05/09/23 duloxetine 30 mg capsule,delayed 30 mg PO DAILY #90 caps 08/14/23 release (Cymbalta) duloxetine 60 mg capsule,delayed 60 mg PO DAILY #90 caps 08/14/23 release metoprolol succinate 100 mg 100 mg PO BID #180 tabs 08/14/23 tablet,extended release 24 hr omeprazole 20 mg capsule,delayed See Rx Instructions .Route 08/14/23 release .COMPLEX #90 caps tramadol 50 mg tablet 50 mg PO BID PRN pain #42 tabs 10/15/23 celecoxib 200 mg capsule (Celebrex) 200 mg PO DAILY #90 caps 01/05/24 Allergies Allergy/AdvReac Type Severity Reaction Status Date / Time gabapentin AdvReac Severe LOOPY Verified 01/28/24 14:57 Review of Systems <Carolyne Smallwood PA-C - Last Filed: 01/28/24 18:01> Review of Systems Narrative: Negative except as above Cardiovascular Comments: Patient had some tachycardia in the walk-in clinic which now has resolved Respiratory Comments: Cough, cold, chest congestion Musculoskeletal Comments: Body aches Integumentary/Breasts Comments: Patient is sweaty Patient History <Carolyne Smallwood PA-C - Last Filed: 01/28/24 18:01> Medical History Left knee DJD Facet arthritis, degenerative, L5-S1 level, lumbosacral spine BENJIE (obstructive sleep apnea) Hypercalcemia Plantar fasciitis of left foot Peripheral neuropathy Microalbuminuria Cardiomyopathy due to chemotherapy Neuropathy History of antineoplastic chemotherapy Biliary colic Cholelithiasis Anemia (2016) Chicken pox (1957) Eczema (2007) Hemorrhoids (1994) Hypertension (1989) Chronic back pain (1967) Sleep apnea (2006) Depression (1999) Shoulder pain (2016) Lumbar spine pain (1967) Foot pain (2016) Breast cancer (2016) Essential hypertension (02/16/16) 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 Social History household members: spouse Smoking Status: Never smoker Smoking Status: Never smoker alcohol intake frequency: 0-2 drinks per day Substance Use Type: does not use Exam <Carolyne Smallwood PA-C - Last Filed: 01/28/24 18:01> Initial Vital Signs Initial Vital Signs: Vital Signs Temperature 98.3 F 01/28/24 15:46 Pulse Rate 83 01/28/24 15:46 Respiratory Rate 16 01/28/24 15:46 Blood Pressure 137/90 01/28/24 15:46 Pulse Oximetry 98 01/28/24 15:46 Oxygen Delivery Method Room Air 01/28/24 15:46 Vital signs are reviewed. Currently at this time the patient is not tachycardic, tachypneic, hypoxic, hypertensive. Const General: cooperative, healthy appearing, comfortable, well developed, well groomed, No acute distress, No in distress and No anxious Nutritional Appearance: average body habitus and overweight Orientation: Orientation [facility] Head: normal to inspection Mouth: oral mucosae normal Eyes General: Yes appearance normal, both eyes and all related structures Eyelids: eyelids normal Pupils: PERRL EOM: EOM intact bilaterally Chest Other: Patient not having difficulty breathing, resting comfortably in the chair. Resp Auscultation: clear to auscultation bilaterally, breath sounds present, no bronchial breath sounds, no bronchovesicular breath sounds, no crackles, lung sounds not diminished, no rales, no rhonchi, no wheezes and no vesicular sounds Cardio Rate: regular rate Rhythm: regular rhythm Heart Sounds: S1 normal and S2 normal Skin Other: Patient has sweaty Neuro General: patient alert, patient awake and patient oriented x3 Cognition: normal cognition Speech: speech normal Gait: other (Wheelchair) Motor: muscle tone normal throughout Extrem Other: Patient currently using a wheelchair to move any type of long distances. She does have a walking stick with her. Appears as if she ambulates in her home without any difficulty. <Nupur Bronson DO - Last Filed: 01/29/24 19:40> Initial Vital Signs Initial Vital Signs: Vital Signs Temperature 98.3 F 01/28/24 15:46 Pulse Rate 83 01/28/24 15:46 Respiratory Rate 16 01/28/24 15:46 Blood Pressure 137/90 01/28/24 15:46 Pulse Oximetry 98 01/28/24 15:46 Oxygen Delivery Method Room Air 01/28/24 15:46 Course <Carolyne Smallwood PA-C - Last Filed: 01/28/24 18:01> Orders Ordered: ED Orders 01/28/24 15:53 XR chest 1V Stat Vital Signs Vital signs: Vital Signs - 8 hr 01/28/24 15:46 Temperature 98.3 F Pulse Rate 83 Respiratory Rate 16 Blood Pressure 137/90 Pulse Oximetry 98 Oxygen Delivery Method Room Air <Nupur Bronson DO - Last Filed: 01/29/24 19:40> Orders Ordered: ED Orders 01/28/24 15:53 XR chest 1V Stat Vital Signs Vital signs: Vital Signs - 8 hr 01/28/24 15:46 Temperature 98.3 F Pulse Rate 83 Respiratory Rate 16 Blood Pressure 137/90 Pulse Oximetry 98 Oxygen Delivery Method Room Air MDM - URI/Sore Throat <HARPER Hopkins Last Filed: 01/28/24 18:01> Lab Data Lab results narrative: COVID test was positive Imaging Data Chest x-ray: My Impression: No acute cardiothoracic abnormalities Radiologist's Impression: [address] [address] XRay Report Signed Patient: Santa Sears MR#: [id number] : 1950 Acct:[id number] Age/Sex: 74 / F Date of Service: 01/28/24 Loc: ED Accession Number: [id number] Procedure: XR chest 1V Ordering Provider: Nupur Bronson D.O. PROCEDURE: XR CHEST 1V INDICATIONS: SOB/cough/covid r/o PNA TECHNIQUE: One view of the chest was acquired. COMPARISON: [facility], CR, XR CHEST 1V, 04/10/2023, 11:44. FINDINGS: Surgical changes and devices: Surgical clips left axilla Lungs and pleura: Lungs are clear. No pleural effusions or pneumothorax. Mediastinum: Mediastinal contours appear normal. Heart size is normal. Bones and chest wall: No suspicious bony lesions. Overlying soft tissues appear unremarkable. IMPRESSION: No acute cardiopulmonary abnormality is seen. Approved by: Dax Nunes M.D. on 01/28/2024 at 16:56 [facility] Narrative Medical decision making narrative: Pleasant 74-year-old female sent from the walk-in clinic with tachycardia and shortness. COVID testing was done in the walk-in clinic is positive. Here in the emergency department her tachycardia, tachypnea has resolved. Currently at this time her vital signs are all stable. Patient resting comfortably. Chest x-ray is done, currently at this time does not show any signs or symptoms of COVID pneumonia. Differential diagnosis; COVID, viral infection, pneumonia. Cowd-dda-pizusih supportive therapy Education. Patient has multiple medications that would need to be stopped in order for her to take Paxlovid, however the patient is almost 7 days into her symptoms. Her started having symptoms on the of this month. And then tested positive multiple days after he had symptoms. He just recently tested negative. The patient started having symptoms on Friday, she has been convalescing at home, presented to the walk-in clinic today because she just kind of felt exhausted. Patient has had symptoms for 5 days. Currently at this time does not qualify to be started on Paxlovid. Discharge Plan Departure Patient Disposition: Home Clinical Impression: COVID-19 Instructions: Coronavirus Disease 2019 Activity Restrictions/Additional Instructions: Your chest x-ray is negative for pneumonia. Urjr-hrl-gjrzufr supportive therapy runny nose Nasonex, sore throat cough drops, plenty rest, balanced diet, plenty of fluids. Mucinex for chest congestion, dry cough Delsym, wet cough you can do Robitussin DM. Or even also do Mucinex you seem to feel that that helped a lot. You can also do rkfi-cvx-bwykwwp Vicks Vaporub. You can take Tylenol with your Eliquis. Steam showers are good to help with chest congestion. It is really treating the symptoms that you are having at home. COVID-19 usually your infectious several days prior to having symptoms. And then usually the symptoms run their course over about 10-14 days. I would suggest that you come in contact with anybody recently that you reach out to them and let them know that you tested positive for COVID. I would suggest that if he is going to be out in the public that you wear a mask, and that you wash her hands at all times or try to keep them clean especially if he go to the grocery store try minimize what you touch. COVID is positive Influenza is negative RSV is negative Chest x-ray does not show pneumonia Please make an appointment to follow up with your primary care doctor. Return to the emergency department as needed. Prescriptions: No Action cholecalciferol (vitamin D3) [Vitamin D3] 1,000 UNIT tablet 5,000 mg PO QDAY Qty: 0 chlorzoxazone 500 mg tablet See Rx Instructions .ROUTE .COMPLEX Qty: 45 0RF Dose Instruction: take 0.5 tablet by mouth four times a day Rx Instructions: take 0.5 tablet by mouth four times a day (DME) Disable Parking See Rx Instructions .Route .MEDSUPPLY Qty: 1 0RF Rx Instructions: I find this patient to be medically disabled and qualified for disabled parking as indicated and sgined on the accompanying disable parking application for individuals (DME) Parking Permit... See Rx Instructions .ROUTE .MEDSUPPLY Qty: 1 0RF Rx Instructions: I find this patient to be medically disabled and qualified for Disabled Parking as indicated , and signed, on the Accompanying Disabled Parking Application for Individuals. Eliquis 5 mg tablet 5 mg PO BID Qty: 180 3RF metoprolol succinate 100 mg tablet extended release 24 hr 100 mg PO BID Qty: 180 3RF duloxetine 60 mg capsule,delayed release(DR/EC) 60 mg PO DAILY Qty: 90 3RF Rx Instructions: Take with 30mg cap duloxetine [Cymbalta] 30 mg capsule,delayed release(DR/EC) 30 mg PO DAILY Qty: 90 3RF Rx Instructions: take with 60mg cap omeprazole 20 mg capsule,delayed release(DR/EC) See Rx Instructions .ROUTE .COMPLEX Qty: 90 3RF Dose Instruction: take 1 capsule by mouth daily Rx Instructions: take 1 capsule by mouth daily celecoxib [Celebrex] 200 mg capsule 200 mg PO DAILY Qty: 90 0RF calcium carbonate 430 mg calcium (1,000 mg) tablet,chewable 1,000 mg PO DAILY cetirizine [Zyrtec] 10 mg tablet 10 mg PO DAILY Qty: 90 3RF nortriptyline 25 mg capsule 25 mg PO BEDTIME PRN (Reason: nerve pain) Qty: 30 0RF hydrocortisone 2.5 % cream See Rx Instructions .ROUTE .COMPLEX Qty: 28 3RF Dose Instruction: apply to affected area twice a day if needed for rash Rx Instructions: apply to affected area twice a day if needed for rash multivitamin Capsule 1 cap PO DAILY ondansetron 4 mg tablet,disintegrating See Rx Instructions .ROUTE .COMPLEX Qty: 60 0RF Dose Instruction: dissolve 1 tablet ON TONGUE every 6 hours if needed for nausea OR vomiting Rx Instructions: dissolve 1 tablet ON TONGUE every 6 hours if needed for nausea OR vomiting tramadol 50 mg tablet 50 mg PO BID PRN (Reason: pain) Qty: 42 1RF losartan-hydrochlorothiazide 100-25 mg tablet 1 tab PO DAILY Referrals: Bao Orantes MD [Primary Care Provider] - Stand Alone Forms: Patient Portal/API ED Sign-out <Nupur Bronson DO - Last Filed: 01/29/24 19:40> Cosign ED Attending Cosnikiaature Attestation: I was immediately available in the department for consultation.
[2024-01-28 18:17] VITALS: BP 134/91; PULSE 74; RESP 20; O2SAT 97
== END 2024-01-28 18:18 | disposition home or self-care (01) ==
PROVIDERS: Emergency Provider Physician Assistant; PCP Family Medicine
DX: U07.1 COVID-19 (principal); R00.0 Tachycardia, unspecified
CPT/HCPCS: 0241U; 71045; 99281; 99283

== ENCOUNTER 2024-03-25 09:41 | Outpatient (CLI) | payer MEDICARE, SELFPAY ==
[2022-07-22 13:52] VITALS: BMI 31.4
[2024-03-25] VITALS (10 sets, daily range): BP systolic 142–168; BP diastolic 72–100; PULSE 70–79; RESP 10–21; TEMP 36.6; O2SAT 95–100
--- NOTE | 2024-03-25 09:42 | DI.RAD.S_ITS ---
PROCEDURE: PAIN L/S TRANSFORAMINAL INJECT INDICATIONS: Left L4/5 TFESI COMPARISON: [facility], , PAIN L/S TRANSFORAMINAL INJECT, 07/22/2023, 16:55. FINDINGS: Fluoroscopic spot filming was performed to verify placement of spinal needles at the left L4-5 foramina level(s), as labeled on the films. Appropriate location(s) of the needle tip(s) was confirmed by injection of iodinated contrast. IMPRESSION: Fluoroscopic guidance Approved by: Dax Nunes M.D. on 03/26/2024 at 13:39
[2024-03-25] MEDS: MIDAZOLAM 2 MG/2 ML VIAL IV (11:03)
[2024-03-25] MEDS: BETAMETHASONE 30 MG/5 ML MDV 12 MG INJ (11:07)
[2024-03-25] MEDS: iopamidoL 15 ML VIAL 3 ML INJ (11:07)
[2024-03-25] MEDS: BUPIVACAINE 0.25% (PF) VIAL 2 ML INJ (11:07)
[2024-03-25] MEDS: DEXAMETHASONE 10 MG/ML VIAL INJ (11:08)
--- NOTE | 2024-03-25 11:22 | P.PCN_ITS ---
Date/Time/Diagnoses Date of procedure: 03/25/24 Time of procedure: 11:22 Pre-procedure diagnosis: 1. FORAMINAL STENOSIS WITH LE SYMPTOMS Post-procedure diagnosis: same Procedure Notes Procedure: 1. FLUOROSCOPICALLY GUIDED CONTRAST CONTROLLED TRANSFORAMINAL EPIDURAL STEROID INJECTION - LEFT L4/5 Indications: Santa is referred by Dr. Orantes for treatment of Foraminal Stenosis with Left LE Symptoms Physician: Truman Gardner Total Fluoroscopy time (seconds): 12 Total sedation minutes: 13 Complications: none Procedure in detail & Post-procedure care: FINDINGS Foraminal Nerve Root Compression secondary to disc disease and facet hypertrophy DESCRIPTION OF PROCEDURE Following review of allergy and review of potential side effects and complications, including, but not necessarily limited to, infection, allergic reaction, local tissue breakdown, stroke, temporary or permanent nerve injury, paralysis, and possible , the patient indicated that the patient understood and agreed to proceed. An informed consent document was signed by the patient, witnessed by a nurse, and placed in the patient's chart. Additionally, other treatment options including medications, modalities, and physical therapy were reviewed with the patient. After review of previous anaesthesic history and IV conscious sedation the patient was deemed safe to proceed with today?s procedure with IV conscious sedation as ASA class II designation. Safety time-out was performed to confirm patient ID, procedure to be performed and site of procedure. IV sedation was accomplished with a combination of 2mg of Versed administered by the RN after DO order, titrated to patient comfort during the course of the procedure while the patient remained responsive to all verbal commands In the prone position following sterile prep and drape of the lumbar region, the left L4/5 posterior neuroforamen was identified fluoroscopically. The skin was anesthetized via a 25-gauge 1.5-inch needle with 1% lidocaine solution. At this point, a 25-gauge 3.5-inch spinal needle was atraumatically introduced and advanced under fluoroscopic guidance through the posterior left L4/5 neuroforamen to approximately the anterior aspect of the canal. Depth was confirmed on lateral view. Following negative aspiration, injection of approximately 1.5 cc of Isovue 200 under live fluoroscopy in the AP view confirmed excellent flow along the nerve root, into the epidural space without vascular or intrathecal uptake observed Radiological data, including multiple fluoroscopic views of the lumbosacral spine, reveal a spinal needle at the left L4/5 posterior neuroforamen. Subsequent views show flow of contrast material flowing superiorly and inferiorly along the nerve root confirming epidural flow. Subsequently, a test dose of 1.5 cc of 1% lidocaine solution was administered and patient was observed for two minutes for signs or symptoms of complications, including abdominal pain, shortness of breath, bilateral upper or lower extremity weakness, nausea and vomiting, prior to steroid injection. At this point, a total of 2cc or 10mg of dexamethasone and 6mg of betamethasone was injected without incident. The procedure tolerated the procedure well without signs or symptoms of complications prior to transfer to the recovery area continued monitoring without incident. The patient was then transferred to the recovery area where they were observed for an appropriate time after the injection. The patient reported a VAS score of 7 prior to the procedure and a post- procedure VAS of 0. POST OP INSTRUCTIONS The patient was provided a Pain Log to continue to record their response to the target-specific procedure prior to follow-up visit with their referring physician. Additionally, specific post-injection care instructions and a contact number to our office were provided if concerns arise regarding possible complications associated with the procedure are suspected.
== END 2024-03-25 11:43 | disposition home or self-care (01) ==
PROVIDERS: PCP Family Medicine; Referring Provider Physical Medicine & Rehabilitation; Visit Provider Physical Medicine & Rehabilitation
DX: M51.16 Intervertebral disc disorders with radiculopathy, lumbar region (principal); M48.062 Spinal stenosis, lumbar region with neurogenic claudication; M51.26 Other intervertebral disc displacement, lumbar region
CPT/HCPCS: 64483; 99152; J0702; J1100; J2250; J3490

== ENCOUNTER 2024-07-29 14:36 | Outpatient (CLI) | payer MEDICARE, SELFPAY ==
[2024-07-25 11:55] VITALS: BMI 31.4
[2024-07-29] VITALS (9 sets, daily range): BP systolic 120–169; BP diastolic 74–85; PULSE 68–77; RESP 14–16; TEMP 36.4; O2SAT 96–100
[2024-07-29] MEDS: MIDAZOLAM 2 MG/2 ML VIAL IV (16:01)
[2024-07-29] MEDS: BUPIVACAINE 0.25% (PF) VIAL 2 ML INJ (16:05)
[2024-07-29] MEDS: DEXAMETHASONE 10 MG/ML VIAL INJ (16:06)
[2024-07-29] MEDS: BETAMETHASONE 30 MG/5 ML MDV 12 MG INJ (16:06)
[2024-07-29] MEDS: iopamidoL 15 ML VIAL 3 ML INJ (16:06)
--- NOTE | 2024-07-29 16:10 | P.PCN_ITS ---
Date/Time/Diagnoses Date of procedure: 07/29/24 Time of procedure: 16:10 Pre-procedure diagnosis: 1. HNP WITH RADICULAR FEATURES, 2. MULTILEVEL CENTRAL STENOSIS, Post-procedure diagnosis: same Procedure Notes Procedure: 1. FLUOROSCOPICALLY GUIDED CONTRAST CONTROLLED INTERLAMINAR EPIDURAL STEROID INJECTION -L4/5 Indications: Santa is referred by Dr. Orantes for treatment of Bilateral Foraminal Stenosis R>L LE symptoms. Physician: Truman Gardner Total Fluoroscopy time (seconds): 3 Total sedation minutes: 6 Complications: none Procedure in detail & Post-procedure care: FINDINGS Multilevel Central Spinal Stenosis with Nerve Root Compression DESCRIPTION OF PROCEDURE Fluoroscopically guided, contrast-controlled L4/5 translaminar epidural steroid injection. Following review of allergy and review of potential side effects and complications, including, but not necessarily limited to, infection, allergic reaction, local tissue breakdown, temporary as well as permanent nerve injury, paralysis, stroke and possible , the patient indicated that the patient understood and agreed to proceed. An informed consent document was signed by the patient, witnessed by a nurse, and placed in the patient's chart. Additionally, other treatment options including modalities, medications, and physical therapy were reviewed with the patient. After review of previous anaesthesic history and IV conscious sedation the patient was deemed safe to proceed with today?s procedure with IV conscious sedation as ASA class II designation. Safety time-out was performed to confirm patient ID, procedure to be performed and site of procedure. IV sedation was accomplished with a combination of 2mg of Versed was administered by the RN after DO order, titrated to patient comfort during the course of the procedure while the patient remained responsive to all verbal commands In the prone position, following sterile prep and drape of the lumbar region, the L4/5 translaminar space was identified fluoroscopically. The skin was anesthetized via a 25-gauge, 1.5inch needle with 1% lidocaine solution. At this point, a 22-gauge short bevel spinal needle was atraumatically introduced and advanced under fluoroscopic guidance into the region of the L4/5 translaminar space. Depth was confirmed on lateral view. Radiological data, including multiple fluoroscopic views of the lumbar spine, reveal a spinal needle at the L4/5 translaminar space. Lateral views then show placement of the needle in the epidural space. Subsequent views show contrast material flowing superiorly and inferiorly in the epidural space. No vascular or intrathecal uptake is observed. At this point, using loss of resistance technique with saline and air, the epidural space was entered. This was confirmed following negative aspiration with injection of approximately 1.5cc of Isovue 200, showing excellent epidural flow without vascular or intrathecal uptake. At this point, 1cc of 1% lidocaine solution combined with 2cc or 10mg of dexamethasone and 6mg betamethasone was injected without incident. The patient tolerated the procedure well without signs or symptoms of complications prior to transfer to the recovery area continued monitoring without incident. The patient was then transferred to the recovery area where they were observed for an appropriate period of time after the injection. The patient reported a VAS score of 6 prior to the procedure and a post- procedure VAS of 0. POST OP INSTRUCTIONS The patient was provided a Pain Log to continue to record their response to the target-specific procedure prior to follow-up visit with their referring physician. Additionally, specific post-injection care instructions and a contact number to our office were provided if concerns arise regarding possible complications associated with the procedure are suspected.
== END 2024-07-29 16:35 | disposition home or self-care (01) ==
PROVIDERS: PCP Family Medicine; Referring Provider Physical Medicine & Rehabilitation; Visit Provider Physical Medicine & Rehabilitation
DX: M51.16 Intervertebral disc disorders with radiculopathy, lumbar region (principal); M48.061 Spinal stenosis, lumbar region without neurogenic claudication
CPT/HCPCS: 62323; 99152; 99153; J0702; J1100; J2250; J3490

== ENCOUNTER 2024-10-14 13:44 | Day surgery (SDC) | payer MEDICARE, SELFPAY ==
[2024-07-25 11:55] VITALS: BMI 31.4
--- NOTE | 2024-10-14 | PATH_ITS ---
[facility] Accession Number: [id number] No. of containers..02 Tissue . 01 Material submitted: . PART A: stomach - ANTRUM PART B: colon - TRANSVERSE POLYPS . 01 Diagnosis: A. GASTRIC ANTRUM, BIOPSY: Gastric antral mucosa with no diagnostic abnormality. No evidence of Helicobacter organisms on H/E stain. Negative for intestinal metaplasia. Negative for dysplasia or malignancy. . B. TRANSVERSE COLON POLYPS: Tubular adenoma x2. MRV 10/20/2024 1411 Local . 01 Electronically signed: . Carl Ennis MD, PhD, Pathologist NPI- [id number] . 01 Gross description: . Part A: ANTRUM: Received in formalin are 2 fragment(s) of lin, soft tissue measuring 0.3 x 0.2 x 0.2 cm to 0.4 x 0.2 x 0.2 cm submitted entirely in 1 cassette(s) Part B: TRANSVERSE POLYPS: Received in formalin are 2 fragment(s) of lin, soft tissue measuring 0.5 x 0.3 x 0.3 cm to 0.9 x 0.3 x 0.3 cm submitted entirely in 1 cassette(s) /CHRISTEL 10/19/2024 0101 Local . 01 Pathologist provided ICD-10: K92.1, D12.3 . 01 CPT . 287488, 107414 Specimen Comment: A courtesy copy of this report has been sent to [phone] Performed at: [address] [id number] MD Patrick Regan MD Phone: [phone]
--- NOTE | 2024-10-14 15:11 | PM.HP.IH.1 ---
History of Present Illness History of Present Illness Date Patient Seen: 10/14/24 Time Patient Seen: 15:11 Chief complaint: EGD/Colonoscopy Narrative: Santa is a 74 year old woman with melena. See the office note for details. [facility] Medical History Anemia (2016) Biliary colic Breast cancer (2015) Breast cancer, left Candidiasis, esophageal Cardiomyopathy due to chemotherapy Chemotherapy adverse reaction Chemotherapy-induced nausea Chicken pox (1956) Cholelithiasis Chronic back pain (1967) Depression (1999) Eczema (2007) Essential hypertension (02/16/16) Facet arthritis, degenerative, L5-S1 level, lumbosacral spine Foot pain (2016) Hemorrhoids (1994) History of antineoplastic chemotherapy Hypercalcemia Hypertension (1989) Left knee DJD Lumbar spine pain (1967) Malignant neoplasm of upper-outer quadrant of left female breast (03/14/16) Microalbuminuria Neuropathy BENJIE (obstructive sleep apnea) Other thrombophilia Peripheral neuropathy Plantar fasciitis of left foot Shoulder pain (2016) Sleep apnea (2006) Surgical History Anesthesia History of knee replacement (10/2014) History of left mastectomy History of lumpectomy (2015) Status post left breast reconstruction Status post partial mastectomy (06/2016) Family History Father Mental health problem Suicide Loud snoring Depression Alcohol abuse Mother Hypertension High cholesterol Stroke Diabetes mellitus Loud snoring Restless leg Obesity Heart disease Depression Grandmother No problems noted. Social History household members: spouse Smoking Status: Never smoker alcohol intake: current Meds Home Medications and Allergies Home Medications ?Medication ?Instructions ?Recorded ?Confirmed ?Type cholecalciferol (vitamin D3) 25 5,000 mg PO QDAY ##0 03/08/16 10/14/24 History mcg (1,000 unit) tablet (Vitamin D3) cetirizine 10 mg tablet (Zyrtec) 10 mg PO DAILY #90 tabs 06/12/18 10/14/24 Rx multivitamin 1 cap PO DAILY 03/01/20 10/14/24 History ondansetron 4 mg disintegrating See Rx Instructions .Route 08/13/22 10/14/24 Rx tablet .COMPLEX #60 tabs hydrocortisone 2.5 % topical cream See Rx Instructions .Route 08/14/22 10/14/24 Rx .COMPLEX #28 grams Disable Parking #1 ea 10/21/22 10/01/24 Rx Parking Permit... #1 ea 10/22/22 10/01/24 Rx duloxetine 30 mg capsule,delayed 30 mg PO DAILY #90 caps 08/14/23 10/14/24 Rx release (Cymbalta) duloxetine 60 mg capsule,delayed 60 mg PO DAILY #90 caps 08/14/23 10/14/24 Rx release metoprolol succinate 100 mg 100 mg PO BID #180 tabs 08/14/23 10/14/24 Rx tablet,extended release 24 hr omeprazole 20 mg capsule,delayed See Rx Instructions .Route 08/14/23 10/14/24 Rx release .COMPLEX #90 caps celecoxib 200 mg capsule (Celebrex) 200 mg PO DAILY #90 caps 01/05/24 10/14/24 Rx losartan 100 1 tab PO DAILY 02/23/24 10/14/24 History mg-hydrochlorothiazide 12.5 mg tablet tramadol 50 mg tablet 50 mg PO BID PRN pain #42 tabs 04/15/24 10/14/24 Rx apixaban 5 mg tablet (Eliquis) 5 mg PO BID #180 tabs 06/01/24 10/14/24 Rx amlodipine 5 mg tablet 5 mg PO DAILY #90 tabs 09/24/24 10/14/24 Rx diclofenac sodium 3 % topical gel 1 applic topical BID PRN joint 09/24/24 10/14/24 Rx pain #100 grams Allergies Allergy/AdvReac Type Severity Reaction Status Date / Time gabapentin AdvReac Severe LOOPY Verified 10/14/24 14:53 nortriptyline AdvReac Intermediate LOOPY Verified 10/14/24 14:53 Exam Const General: No acute distress Assessment & Plan Assessment and plan (1) Melena: Status: Acute Plan EGD and colonoscopy Time-Based Coding :: [TOTAL MINUTES] spent with patient and on the chart (including review of chart, obtaining history, exam, reviewing outside data, placing orders, documenting exam and treatment plan, and counseling patient) on [DATE]. [employer] Document charge(s): No
[2024-10-14 15:14] VITALS: BP 136/90; PULSE 76; RESP 16; TEMP 36.8; O2SAT 97
[2024-10-14] MEDS: LACTATED RINGERS 1,000 ML 42 ML IV (15:18)
--- NOTE | 2024-10-14 16:15 | P.OP.EGD&C_ITS ---
Operative Date/Time/Diagnoses Date of procedure: 10/14/24 Time of procedure: 16:15 Pre-op diagnosis: Melena Post-op diagnosis: same Procedure & Clinicians Study performed: EGD and colonoscopy Same procedure as scheduled: Yes Surgeon: Jim Carmichael Procedure Notes Procedure in detail: Surgeon: Jim Carmichael MD Anesthesia: Jenn San CRNA Procedure in detail: A timeout was performed. A bite blocked was placed and monitors were attached to the patient. The patient was positioned in the left lateral decubitus position. Sedation was administered. Once the patient was sedated the endoscope was inserted through the bite block and passed through the esophagus and stomach and into the duodenum. We then withdrew the scope into the stomach. There was some mild antritis and random biopsies were taken from the antrum with cold forceps. The endoscope was retroflexed and no abnormaliti es were seen. The endoscope was straightned and withdrawn into the esophagus. No abnormalities were seen. EGD findings: Mild antritis Next we repositioned the patient for a colonoscopy. A digital rectal exam was performed and was normal. The colonoscope was inserted and advanced to the cecum. The appendiceal orifice was identified and photographed. The scope was slowly withdrawn over greater than 6 minutes. There was one small polyp in the transverse colon removed with a cold snare. The scope was retroflexed in the rectum and no other abnormalities were found. Colonoscopy findings: 1 small polyp in the transverse colon Total procedural EBL: 5 mL Scope withdrawal time: 8 minutes Sedation minutes: 22 minutes Post-procedure Disposition: PACU
[2024-10-14 16:17] VITALS: BP 121/56; PULSE 78; RESP 15; TEMP 36.4; O2SAT 96
[2024-10-14 16:27] VITALS: BP 125/65; PULSE 80; RESP 18; TEMP 36.4; O2SAT 96
== END 2024-10-14 16:45 | disposition home or self-care (01) ==
PROVIDERS: PCP Family Medicine; Referring Provider Surgery; Visit Provider Surgery
PROC: 0DJ08ZZ Inspection of Upper Intestinal Tract, Via Natural or Artificial Opening Endoscopic (ICD-10-PCS; CPT 45385; principal; 2024-10-14 15:15)
PROC: 0DJD8ZZ Inspection of Lower Intestinal Tract, Via Natural or Artificial Opening Endoscopic (ICD-10-PCS; CPT 45378; 2024-10-14 15:15)
DX: K92.1 Melena (principal); K29.50 Unspecified chronic gastritis without bleeding; D12.3 Benign neoplasm of transverse colon
CPT/HCPCS: 45385; 43239; J2704

== ENCOUNTER 2025-02-17 13:14 | Outpatient (CLI) | payer MEDICARE, SELFPAY ==
[2024-07-25 11:55] VITALS: BMI 31.4
[2025-02-17] VITALS (7 sets, daily range): BP systolic 140–173; BP diastolic 74–98; PULSE 80–91; RESP 16–26; TEMP 36.8; O2SAT 96–99
[2025-02-17] MEDS: MIDAZOLAM 2 MG/2 ML VIAL IV (14:38)
[2025-02-17] MEDS: BETAMETHASONE 30 MG/5 ML MDV 12 MG INJ (14:43)
--- NOTE | 2025-02-17 14:53 | PM.PROC.IR.1 ---
Date/Time/Diagnoses Date of procedure: 02/17/25 Time of procedure: 14:53 Pre-procedure diagnosis: Sacroiliac Joint Pain/DJD Post-procedure diagnosis: same Procedure Notes Procedure: Fluoroscopically guided contrast controlled left sacroiliac joint injection Indications: Santa is referred by Dr. Orantes for treatment of left sacroiliac joint DJD Physician: Truman Gardner Total Fluoroscopy time (seconds): 8 Total sedation minutes: 11 Complications: none Procedure in detail & Post-procedure care: DESCRIPTION OF PROCEDURE Fluoroscopic guided, contrast controlled left sacroiliac joint injection Following review of allergies and review of potential side effects and complications, including, but not necessarily limited to, infection, allergic reaction, local tissue breakdown, temporary as well as permanent nerve injury, paralysis, stroke and possible , the patient indicated that they understood and agreed to proceed. An informed consent was signed by the patient, witnessed by a nurse, and placed in the patient's chart. Additionally, other treatment options including modalities, medications, and physical therapy were reviewed with the patient. After review of previous anaesthesic history and IV conscious sedation the patient was deemed safe to proceed with today?s procedure with IV conscious sedation as ASA class II designation. Safety time-out was performed to confirm patient ID, procedure to be performed and site of procedure. IV sedation was accomplished with a combination of 2mg of Versed administered by the RN after DO order, titrated to patient comfort during the course of the procedure while the patient remained responsive to all verbal commands. In the prone position following sterile prep and drape of the pelvic region, the hyper lucency on in the inferior aspect of the left sacroiliac joint was identified fluoroscopically the skin was anesthetized be a 25 gauge 1 eventual with approximately 2cc of 1% lidocaine solution. At this point, a 22 gauge 3inch spinal needle was atraumatically introduced and advanced under fluoroscopic guidance into the inferior aspect of the left sacroiliac joint. Following negative aspiration, approximately 0.3cc of [id number]-[id number] was injected confirming intra-articular placement without vascular uptake. Radiographic data, including multiple fluoroscopic views of the pelvis, reveals a spinal needle in the left sacroiliac joint hyper lucent zone. Subsequent view show flow contrast tear superiorly and inferiorly within the joint capsule without vascular intrathecal uptake. At this point a total of 1cc or 0.5% Marcaine was combined with 2cc of 12mg of betamethasone was injected without incident. The patient tolerated the procedure well without signs or symptoms of complications prior to transfer to the recovery area for further monitoring. The patient was then transferred to the recovery area with a bur observed for an appropriate time after the injection. The patient reverted a vas score of 7 prior to the procedure and postprocedure vas of 1. POSTOP INSTRUCTIONS The patient was provided with a pain like to continue to record the patient's response to the target specific procedure prior to the patient's follow-up visit with the referring physician. Additionally, specific post injection care instructions and a contact number to our office were provided if concerns arise regarding the possible complications associated with procedure are suspected.
== END 2025-02-17 15:22 | disposition home or self-care (01) ==
LOC: RAD 13:15
PROVIDERS: PCP Family Medicine; Referring Provider Physical Medicine & Rehabilitation; Visit Provider Physical Medicine & Rehabilitation
DX: M53.3 Sacrococcygeal disorders, not elsewhere classified (principal); M46.1 Sacroiliitis, not elsewhere classified
CPT/HCPCS: 27096; 99152; J0702; J2250

== ENCOUNTER → 2025-03-02 15:16 | Outpatient (CLI) | payer MEDICARE, SELFPAY ==
[2024-07-25 11:55] VITALS: BMI 31.4
--- NOTE | 2025-03-02 15:16 | DI.MG.S_ITS ---
MM screening mammo unilat RT: 03/02/2025. BI-RADS: 1 CLINICAL: 75-year old female for right screening mammogram. No Tyrer-Cuzick risk score calculation due to the patient's personal history of breast cancer. Patient reports a history of left breast carcinoma diagnosed at age 66. Status-post left mastectomy with chemotherapy. No first-degree family history of breast cancer. The patient had a prior left breast biopsy. PRIOR EXAMS 08/08/2023, 08/06/2022, 04/18/2021, 03/31/2020, 03/30/2019, 03/18/2018, MAMMOGRAPHY TECHNIQUE: 2D and 3D (tomosynthesis) digital mammographic views obtained, with additional images as needed for full coverage. Current study was also evaluated with a Computer Aided Detection (CAD) system. DENSITY Right: B. There are scattered areas of fibroglandular density. MAMMOGRAPHY FINDINGS Right: No suspicious mass, asymmetry, microcalcification, or other abnormality seen. IMPRESSION: Right * No evidence of malignancy. RECOMMENDATIONS Right * Annual screening mammography. OVERALL ASSESSMENT CATEGORY BI-RADS-1: Negative. The [employer] recommends annual screening mammography beginning at age 40 for women with average risk of breast cancer. ELECTRONICALLY SIGNED: Dino Mccrary M.D. on 03/03/2025 at 09:21:30 AM PT Interpreting Station ID: [id number]
== END ==
LOC: MAMMO 15:16
PROVIDERS: PCP Family Medicine; Referring Provider Family Medicine; Visit Provider Family Medicine
DX: Z12.31 Encounter for screening mammogram for malignant neoplasm of breast (principal); Z85.3 Personal history of malignant neoplasm of breast
CPT/HCPCS: 77063; 77067

== ENCOUNTER → 2025-04-12 10:00 | Outpatient (CLI) | payer MEDICARE, SELFPAY ==
[2024-07-25 11:55] VITALS: BMI 31.4
[2025-04-12 10:56] LABS: Add Manual Diff / Slide Review NO; Hematocrit 40.5 % (36-46); Hemoglobin 14.4 g/dL (12.0-16.0); Lymphocytes Absolute Auto 2000 /uL (1100-4500); Mean Corpuscular HGB Conc 35.6 % (30-36); Mean Corpuscular Hemoglobin 36.5 PG (26-34); Mean Corpuscular Volume 102.6 fL (80-100); Platelet Count 431 X10^3/uL (150-400)
[2025-04-12 11:30] LABS: Alanine Aminotransferase 12 IU/L (<35); Albumin 3.8 g/dL (3.5-5.0); Albumin Globulin Ratio 1.5 (1.0-2.8); Alkaline Phosphatase 135 U/L (38-126); Blood Urea Nitrogen 14 mg/dL (7-17); Calcium 9.6 mg/dL (8.4-10.2); Carbon Dioxide 29 mmol/L (22-32); Chloride 99 mmol/L (98-107); Cholesterol 141 mg/dL (140-199); Estimated Glomerular Filt Rate 54 mL/min (>60); Globulin 2.6 g/dL (1.7-4.1); Glucose 160 mg/dL (70-99); HDL Cholesterol 37 mg/dL (40-60); HEMOLYSIS < 15 (0-50); Potassium 4.0 mmol/L (3.4-5.1); Sodium 138 mmol/L (137-145); Total Protein 6.4 g/dL (6.3-8.2); Triglycerides 146 mg/dL (35-150)
[2025-04-12 11:59] LABS: TSH w/ Reflex to FT4 1.49 uIU/mL (0.47-4.68)
== END ==
PROVIDERS: PCP Family Medicine; Referring Provider Family Medicine; Visit Provider Family Medicine
DX: D68.69 Other thrombophilia (principal); I10 Essential (primary) hypertension; G62.9 Polyneuropathy, unspecified; G62.0 Drug-induced polyneuropathy; T45.1X5A Adverse effect of antineoplastic and immunosuppressive drugs, initial encounter; M51.26 Other intervertebral disc displacement, lumbar region; M48.061 Spinal stenosis, lumbar region without neurogenic claudication; E83.52 Hypercalcemia; E78.2 Mixed hyperlipidemia
CPT/HCPCS: 36415; 80053; 80061; 84443; 85025